=== PATIENT | male | born 1985 | race Hispanic/Latino ===

== ENCOUNTER 2019-03-31 07:21 | Day surgery (SDC) | payer OTHER ==
[2019-03-31] MEDS ORDERED: Ringers Lactate 1,000 ML IV ONE (07:55)
[2019-03-31] MEDS ORDERED: MIDAZOLAM HCL 2 MG/2 ML INJ ONE (08:16)
[2019-03-31] MEDS ORDERED: PROPOFOL 200 MG/20 ML VIAL IV ONE ×2 (08:16→09:16)
[2019-03-31] MEDS ORDERED: FENTANYL CITR 100 MCG/2 ML ONE (08:17)
[2019-03-31] MEDS ORDERED: LIDOCAINE 2% MPF 5 ML VIAL ONE (08:18)
[2019-03-31] MEDS ORDERED: ONDANSETRON 4 MG/2 ML VIAL ONE (08:21)
[2019-03-31] MEDS: CEFAZOLIN/SWI 2gm 2 GM/20 ML SYR ONE ×2 (08:34→08:40)
[2019-03-31] MEDS: BUPIVACA 0.5%/EPI 0.0005%/PF 30 ML VIAL ONE ×2 (08:43→09:07)
[2019-03-31] MEDS ORDERED: KETOROLAC 30 MG/ML INJ ONE (09:10)
[2019-03-31] MEDS ORDERED: GLYCOPYRROLATE 0.2 MG/ML SYR ONE (09:14)
[2019-03-31] MEDS ORDERED: NEOSTIGMINE 1 MG/ML -10 ML VIAL ONE (09:16)
--- NOTE | 2019-03-31 09:55 | P.OP ---
Preoperative diagnosis: Posterior Neck Recurrent Hydrainitis Suppuritiva, Right Facial Abscess Postoperative diagnosis: Posterior Neck Recurrent Hydrainitis Suppuritiva, Right Facial Abscess Primary procedure: Wide Local Excision 15cm x 8cm x 2cm to muscle of Posterior Neck Secondary procedure: Incision and Drainage of Facial Abscess 4cmx 4cm x 1cm Anesthesia: GETA + Local Estimated blood loss: 40cc Specimen: Cultures, Tissues Findings: Large Fungating Hydrainitis, Facial Abscess, pilonidal cyst disease of neck Complications: None Transferred to: Recovery Room Condition: Good
[2019-03-31] MEDS ORDERED: SUCCINYLCHOLINE 20 MG/ML (10 ML) IV ONE (10:22)
[2019-03-31] MEDS ORDERED: PROMETHAZINE 25 MG/ML VIAL ONE (10:25)
[2019-03-31] MEDS ORDERED: HYDROCODONE/APAP 7.5/325 MG TAB ONE (11:00)
[2019-03-31 13:09] VITALS: TEMP 97.8
[2019-03-31 13:10] VITALS: BP 132/74; O2SAT 96
--- NOTE | 2019-03-31 20:20 | OP ---
Date of Procedure: 03/31/2019 Surgeon: Lawrence Contreras MD, Preoperative Diagnosis: Posterior neck recurrent hidradenitis suppurativa and right facial abscess. Postoperative Diagnosis: Posterior neck recurrent hidradenitis suppurativa and right facial abscess. Procedure Performed: 1.Wide local excision 50 cm x 8 cm x 2 cm muscle posterior neck. 2.Incision and drainage of facial abscess, 4 cm x 4 cm x 1 cm. Anesthesia: General endotracheal plus local with 0.5% Marcaine with epinephrine. Estimated Blood Loss: 40 mL. Specimen: Cultures sent for both aerobic and anaerobic speciation. Abscess and tissues sent from hi dradenitis tissue. Findings: 1.Large fungating hidradenitis, recurrent. Significant scarring evident with multiple rest of hidra denitis suppurativa interspersed with pilonidal cyst disease in multiple rest, approximately 8 rest o f pilonidal cyst. These were interspersed between the hidradenitis suppurativa. 2.Facial abscess along the superior aspect of the angle of mandible, not involving deeper tissues in cluding parotid mass. 3.Pilonidal cyst disease. Complications: None. Disposition: Transferred to recovery room in good condition. Procedure In Detail: After informed consent was obtained, patient was brought to the operating room, prepped and draped in the usual sterile fashion. After adequate anesthesia was achieved, an ellipti chloe area of the posterior neck approximately 15 x 8 cm was taken down using a 15 blade circumferentia lly after anesthetizing the entire area. Electrocautery was used to dissect down through the subcuta neous tissues into the subcutaneous fat extended around the right side of the neck as well from poste rior to the right side of the neck. Dissection continued down to expose the fascial planes covering the muscular tissue, but no fascial planes were violated at this time. Dissection continues circumfe rentially to remove this grossly infected and grossly scarred in hidradenitis suppurativa with inters persed rest of pilonidal cyst disease. In between, there were approximately 8 rest of pilonidal cyst disease encountered. These were removed as well along with the pilus. After this area was cleaned, an incision and drainage were performed approximately 4 cm x 4 cm abscess along the superior aspect of the mandible. This is a simple incision and drainage and I removed the capsule of this. It did n ot appear to go deeper than any of the subcutaneous tissues. It did not appear to violate the paroti d or mass tissues. This area was copiously irrigated multiple times until completely clear and packe d, and an interrupted 3-0 nylon sutures were used to reapproximate the skin of this area. I then use d a pulse lavage device to clean out the posterior neck incision after all the tissue was sent off fo r pathologic examination. After this was completely cleared, hemostasis was achieved with electrocau isha and these tissue was reapproximated using a 2-0 nylon suture with a vertical mattress type incis ion and draining israel were placed interspersed between these and a Xeroform gauze placed over the to p. A sterile dressing was placed over top. Patient tolerated the procedure well without evidence of complication and transferred to PACU in good condition. All counts were correct at the end of the case. RADHA/HEIDI Voice ID: [id number] Report ID: [id number]
== END 2019-03-31 12:20 | disposition home or self-care (01) ==
LOC: OR 07:21
PROVIDERS: ATTEND Surgery
PROC: 0J910ZZ Drainage of Face Subcutaneous Tissue and Fascia, Open Approach (ICD-10-PCS; 2019-03-31)
PROC: 0JB40ZZ Excision of Right Neck Subcutaneous Tissue and Fascia, Open Approach (ICD-10-PCS; principal; 2019-03-31 08:30)
DX: L73.2 Hidradenitis suppurativa (principal); L02.01 Cutaneous abscess of face; E66.01 Morbid (severe) obesity due to excess calories; Z68.45 Body mass index [BMI] 70 or greater, adult
CPT/HCPCS: 87070; 87205; 88304; 87075; 87077; 87186; 11426; 10060; J2704 ×2; J2710; J2550; J0330; J3010; J0690; J7120; J2405; 88305; J2250

== ENCOUNTER 2019-04-25 12:03 | Day surgery (SDC) | payer OTHER ==
--- OUTSIDE RECORDS SUMMARY | 2019-04-25 12:07 | XMS REPORT ---
:1985 [facility] Address [address] [place] [address] Dr. Solo [address] [place] [address] Care Team Providers Name Role Phone Unavailable Unavailable Unavailable Problems This patient has no known problems. Allergies, Adverse Reactions, Alerts This patient has no known allergies or adverse reactions. Medications This patient has no known medications.
--- OUTSIDE RECORDS SUMMARY | 2019-04-25 12:07 | XMS REPORT ---
:1985 Author Organization [employer] Care Team Providers Name Role Phone Josey Rose Provider Role Unavailable Allergies, Adverse Reactions, Alerts Substance Reaction Event Type Cipro rash Drug Allergy Problems Problem Type Condition Code Onset Dates Condition Status Assessment Elevated BP without diagnosis of R03.0 Active hypertension Assessment Abscess, neck L02.11 Active Assessment Hidradenitis suppurativa L73.2 Active Assessment Morbid obesity E66.01 Active Assessment Depression screening Z13.31 Active Problem Morbid obesity E66.01 Active Problem Hidradenitis suppurativa L73.2 Active Problem Anxiety F41.9 Active Problem Depression screening Z13.31 Active Problem Abscess, neck L02.11 Active Problem Elevated BP without diagnosis of R03.0 Active hypertension Medications No Known Medications Results No Known Results Summary Purpose eClinicalWorks Submission
[2019-04-25 12:43] VITALS: BP 142/59; TEMP 98.4; O2SAT 96
== END 2019-04-25 12:54 | disposition home or self-care (01) ==
LOC: OR 12:03
PROVIDERS: ATTEND Surgery
DX: L02.211 Cutaneous abscess of abdominal wall (principal); Z53.8 Procedure and treatment not carried out for other reasons

== ENCOUNTER 2019-05-05 11:05 | Day surgery (SDC) | payer OTHER ==
[2019-05-05] MEDS ORDERED: Ringers Lactate 1,000 ML IV ONE (11:42)
[2019-05-05] MEDS ORDERED: CEFAZOLIN/SWI 2gm 2 GM/20 ML SYR ONE (11:42)
--- OUTSIDE RECORDS SUMMARY | 2019-05-05 11:53 | XMS REPORT ---
:1985 [facility] Address [address] [place] [address] Dr. Solo [address] [place] [address] Care Team Providers Name Role Phone Unavailable Unavailable Unavailable Problems This patient has no known problems. Allergies, Adverse Reactions, Alerts This patient has no known allergies or adverse reactions. Medications This patient has no known medications.
[2019-05-05] MEDS ORDERED: BUPIVACA 0.5%/EPI 0.0005%/PF 30 ML VIAL ONE (13:16)
[2019-05-05] MEDS ORDERED: LIDOCAINE 2% MPF 5 ML VIAL ONE (13:32)
[2019-05-05] MEDS ORDERED: PROPOFOL 200 MG/20 ML VIAL IV ONE ×2 (13:32→13:57)
[2019-05-05] MEDS ORDERED: MIDAZOLAM HCL 2 MG/2 ML INJ ONE (13:32)
[2019-05-05] MEDS ORDERED: FENTANYL CITR 100 MCG/2 ML ONE (13:32)
[2019-05-05] MEDS ORDERED: ONDANSETRON 4 MG/2 ML VIAL ONE (13:33)
--- NOTE | 2019-05-05 14:07 | P.OP ---
Preoperative diagnosis: Right flank hydrainitis suppuritiva with abscess x 2 Primary procedure: Debridement of Right flank hydrainitis suppuritiva with abscess x 2 Anesthesia: MAC + Local Estimated blood loss: <10cc Specimen: hydrainitis tissue x 2 Findings: 2 areas of hydrainitis, [id number], and 9klj8pm Complications: None Transferred to: Recovery Room Condition: Good
[2019-05-05 14:34] VITALS: TEMP 98.1
[2019-05-05 15:32] VITALS: BP 115/57; O2SAT 98
--- NOTE | 2019-05-05 23:27 | OP ---
Date of Procedure: 05/05/2019 Surgeon: Lawrence Contreras MD, Preoperative Diagnosis: Right flank hidradenitis suppurativa with abscess x2. Postoperative Diagnosis: Right flank hidradenitis suppurativa with abscess x2. Procedure Performed: Debridement of right flank hidradenitis suppurativa with abscess x2. Anesthesia: MAC plus local 0.5% Marcaine with epinephrine. Estimated Blood Loss: Less than 10 mL. Specimen: Hidradenitis tissue x2. Findings: Two areas of hidradenitis 6 cm x 3 cm x 2 cm deep and 5 cm x 2 cm x 2 cm deep. Complications: None. Disposition: Transferred to recovery room in good condition. Procedure In Detail: After informed consent was obtained, the patient was brought to the operating r oom, prepped and draped in the usual sterile fashion. After adequate anesthesia was achieved, I took an elliptical area of a right flank hidradenitis suppurativa tissue. Cultures were sent at this dioni e of this purulent collection and I took out all the hidradenitis tissue as described above using tucker ctrocautery circumferentially. The area was then copiously irrigated multiple times until completely clear. Electrocautery was used to achieve hemostasis and the wound was then closed with interrupted 0 Prolene sutures in a vertical mattress type orientation. Another anterior flank area of hidradeni tis suppurativa with abscess was also encountered approximately 2-3 cm anterior from the previous one . This was approximately 5 cm x 2 cm. This was taken down using a scalpel down to the subcutaneous tissues. All hidradenitis tissue was also debrided grossly using a curette as well as electrocautery and circumferentially dissected out and sent off for pathologic examination as well. The area was c opiously irrigated. Hemostasis was easily achieved with electrocautery. The area was copiously irri gated 1 last time and dried. It was also closed with interrupted 0 Prolene sutures in interrupted fa shion and a vertical mattress type incision. The patient tolerated the procedure well without eviden ce of complication, transferred to PACU in good condition. All counts were correct at the end of the case. RADHA/HEIDI Voice ID: [id number] Report ID: [id number]
== END 2019-05-05 15:16 | disposition home or self-care (01) ==
LOC: OR 11:05
PROVIDERS: ATTEND Surgery
PROC: 0JB80ZZ Excision of Abdomen Subcutaneous Tissue and Fascia, Open Approach (ICD-10-PCS; principal; 2019-05-05 12:30)
DX: L73.2 Hidradenitis suppurativa (principal); L02.211 Cutaneous abscess of abdominal wall; E66.01 Morbid (severe) obesity due to excess calories; Z68.45 Body mass index [BMI] 70 or greater, adult; F17.200 Nicotine dependence, unspecified, uncomplicated; Z88.3 Allergy status to other anti-infective agents
CPT/HCPCS: 87070; 87205; 88304; 87075; 11470; J2704 ×2; J2250; J3010; J0690; J7120; J2405; 88305

== ENCOUNTER 2019-05-28 07:32 | Day surgery (SDC) | payer OTHER ==
[~2019-05-28 07:32] MED LIST: FENTANYL CITR 100 MCG/2 ML ONE; LIDOCAINE 2% MPF 5 ML VIAL ONE; MIDAZOLAM HCL 2 MG/2 ML INJ ONE; propofoL 200 MG/20 ML VIAL IV ONE
--- OUTSIDE RECORDS SUMMARY | 2019-05-28 07:34 | XMS REPORT ---
:1985 [facility] Address [address] [place] [address] Dr. Solo [address] [place] [address] Care Team Providers Name Role Phone Unavailable Unavailable Unavailable Problems This patient has no known problems. Allergies, Adverse Reactions, Alerts This patient has no known allergies or adverse reactions. Medications This patient has no known medications.
--- OUTSIDE RECORDS SUMMARY | 2019-05-28 07:34 | XMS REPORT ---
:1985 Author Organization [employer] Care Team Providers Name Role Phone Josey Rose Provider Role Unavailable Allergies, Adverse Reactions, Alerts Substance Reaction Event Type Cipro rash Drug Allergy Problems Problem Type Condition Code Onset Dates Condition Status Assessment Abscess, neck L02.11 Active Assessment Abscess of chest J86.9 Active Assessment Morbid obesity E66.01 Active Assessment Elevated BP without diagnosis of R03.0 Active hypertension Assessment Hidradenitis suppurativa L73.2 Active Problem Anxiety F41.9 Active Problem Morbid obesity E66.01 Active Problem Abscess of chest J86.9 Active Problem Elevated BP without diagnosis of R03.0 Active hypertension Problem Depression screening Z13.31 Active Problem Hidradenitis suppurativa L73.2 Active Problem Abscess, neck L02.11 Active Medications Medication Code Code Instructions Start End Status Dosage System Date Date Acetaminophen-Cod [facility] 28257357841 300-30 MG Oral Active (Jaquelin maloney #3 e III Drug) Metformin HCl [facility] [address]-97 500 MG Orally Active 1 tablet Twice daily with a meal Topiramate [facility] [address]-63 25 mg Orally Active 1 tablet Twice daily Spironolactone [facility] [address]-98 25 mg Oral Active 1 tablet Twice a day Results No Known Results Summary Purpose eClinicalWorks Submission
[2019-05-28] MEDS ORDERED: BUPIVACA 0.5%/EPI 0.0005%/PF 30 ML VIAL ONE (08:00)
[2019-05-28] MEDS ORDERED: CEFAZOLIN/SWI 2gm 2 GM/20 ML SYR ONE (08:09)
[2019-05-28] MEDS ORDERED: NA CHLORIDE 0.9% 1,000 ML ONE (08:09)
[2019-05-28] MEDS ORDERED: SUCCINYLCHOLINE 20 MG/ML (10 ML) IV ONE (08:44)
[2019-05-28] MEDS ORDERED: propofoL 200 MG/20 ML VIAL IV ONE (09:02)
[2019-05-28] MEDS ORDERED: KETAMINE HCL 500 MG/5 ML VIAL ONE (09:06)
--- NOTE | 2019-05-28 09:30 | P.OP ---
Preoperative diagnosis: Chest / Sternal Abscess Postoperative diagnosis: Chest / Sternal Abscess Primary procedure: Excisional Debridement of Chest / Sternal Abscess Secondary procedure: Placement of Amniofill (placental graft) Anesthesia: MAC + Local Estimated blood loss: <2cc Specimen: Cultures, debridement tissue Findings: multiloculated abcess to subQ fat, necrotic tissue Complications: None Implants: Amniofill Transferred to: Recovery Room Condition: Good
[2019-05-28 11:30] VITALS: TEMP 97.5; O2SAT 99
[2019-05-28 11:33] VITALS: BP 118/78
--- NOTE | 2019-05-28 20:50 | OP ---
Date of Procedure: 05/28/2019 Surgeon: Lawrence Contreras MD, Preoperative Diagnosis: Chest/sternal abscess. Postoperative Diagnosis: Chest/sternal abscess. Procedure Performed: Excisional debridement of chest/sternal abscess and hidradenitis tissue. Secondary Procedure,: Placement of AmnioFill placental graft. Anesthesia: MAC plus local with 0.5% Marcaine with epinephrine. Estimated Blood Loss: Less than 2 mL. Specimen: Cultures and debridement tissues. Findings: Multiple loculated abscesses, subcu fat, and necrotic tissue, approximately 4 cm x 3 cm size. Complications: None. Implants: AmnioFill. Condition: Transferred to recovery room in good condition. Procedure In Detail: After informed was obtained, the patient was brought to the operating room, prepped and draped in the usual sterile fashion. After adequate anesthesia was achieved in the area of the central sternum, the sternum was noted to have a large abscess. This was opened sharply with a 10 blade down through subcutaneous tissues. Immediately encountered was abscess material. This was cultured at this time for both aerobic and anaerobic speciation. Dissection continued down and it was digitized to find a multiloculated abscess. The edges were debrided of all necrotic tissue and this was sent off for examination of the debridement specimen down to subcutaneous fat. The area was copiously irrigated multiple times until completely clear. The area was curetted once again at this point, and I used an electrocautery device to achieve hemostasis easily. The area was irrigated once again and packed with AmnioFill after appropriately hydrating product, the wound was then packed with damp-to-dry dressings. A sterile dressing was placed over top. The patient tolerated the procedure well without evidence of complication, transferred to PACU in good condition. All counts were correct at the end of the case. RADHA/HEIDI Voice ID: [id number] Report ID: [id number] SHIRLEY
== END 2019-05-28 11:20 | disposition home or self-care (01) ==
LOC: OR 07:32
PROVIDERS: ATTEND Surgery
PROC: 0HR5XK3 Replacement of Chest Skin with Nonautologous Tissue Substitute, Full Thickness, External Approach (ICD-10-PCS; 2019-05-28)
PROC: 0JB60ZZ Excision of Chest Subcutaneous Tissue and Fascia, Open Approach (ICD-10-PCS; principal; 2019-05-28 08:30)
DX: L02.213 Cutaneous abscess of chest wall (principal); L73.2 Hidradenitis suppurativa; G47.33 Obstructive sleep apnea (adult) (pediatric); I10 Essential (primary) hypertension; Z72.0 Tobacco use
CPT/HCPCS: 87070; 87205; 82947 ×2; 88304; 87075; 11042; 15271; J2704 ×2; J2250; J3010; J0690; J7030; J0330

== ENCOUNTER 2019-07-02 07:39 | Day surgery (SDC) | payer OTHER ==
--- OUTSIDE RECORDS SUMMARY | 2019-07-02 07:44 | XMS REPORT ---
[...] End Status Dosage System Date Date Acetaminophen-Cod [facility] 98476962026 300-30 MG Oral Active (Jaquelin maloney #3 e III Drug) Metformin HCl [facility] [address]-50 500 MG Orally Active 1 tablet Twice daily with a meal Topiramate [facility] [address]-03 25 mg Orally Active 1 tablet Twice daily Spironolactone [facility] [address]-76 25 mg Oral Active 1 tablet Twice a day Results No Known Results Summary Purpose eClinicalWorks Submission
--- OUTSIDE RECORDS SUMMARY | 2019-07-02 07:44 | XMS REPORT ---
:1985 [facility] Address [address] [place] [address] Dr. Solo [address] [place] [address] Care Team Providers Name Role Phone Unavailable Unavailable Unavailable Problems This patient has no known problems. Allergies, Adverse Reactions, Alerts This patient has no known allergies or adverse reactions. Medications This patient has no known medications.
[2019-07-02] MEDS ORDERED: CEFAZOLIN/SWI 2gm 2 GM/20 ML SYR ONE (07:59)
[2019-07-02] MEDS ORDERED: FENTANYL CITR 100 MCG/2 ML ONE ×2 (08:08→09:08)
[2019-07-02] MEDS ORDERED: MIDAZOLAM HCL 2 MG/2 ML INJ ONE (08:08)
[2019-07-02] MEDS ORDERED: propofoL 200 MG/20 ML VIAL IV ONE ×2 (08:08→08:29)
[2019-07-02] MEDS ORDERED: LIDOCAINE 2% MPF 5 ML VIAL ONE (08:08)
[2019-07-02] MEDS: NA CHLORIDE 0.9% 1,000 ML ONE (08:15)
[2019-07-02] MEDS ORDERED: BUPIVACA 0.5%/EPI 0.0005%/PF 10 ML VIAL ONE (08:44)
[2019-07-02] MEDS ORDERED: NS 0.9% VIAL 10 ML ONE (09:01)
--- NOTE | 2019-07-02 09:11 | P.OP ---
Preoperative diagnosis: Chest Hydrainitis Suppuritiva Postoperative diagnosis: Chest Hydrainitis Suppuritiva Primary procedure: Wide Local Excision of Chest Hydrainitis Suppuritiva Anesthesia: MAC + Local Estimated blood loss: <10cc Specimen: Cultures Sent, Debridement Tissue Findings: ~6x4x4 cm Complications: None Implants: Amniofill powder Transferred to: Recovery Room Condition: Good
[2019-07-02] MEDS ORDERED: ONDANSETRON 4 MG/2 ML VIAL ONE (09:24)
[2019-07-02] MEDS: HYDROMORPHONE HCL 1 MG/ML INJ ONE ×4 (09:30→09:50)
[2019-07-02] MEDS ORDERED: KETOROLAC 30 MG/ML INJ ONE (09:41)
[2019-07-02 10:40] VITALS: BP 127/70; TEMP 98.9; O2SAT 95
--- NOTE | 2019-07-02 19:22 | OP ---
Date of Procedure: 07/02/2019 Surgeon: Ted Contreras MD, Preoperative Diagnosis: Chest hidradenitis suppurativa. Postoperative Diagnosis: Chest hidradenitis suppurativa with abscess. Procedure: 1.Wide local excision of chest hidradenitis suppurativa. 2.Application of AmnioFill placental graft tissue. Anesthesia: MAC plus local with 0.25% Marcaine with epinephrine. Estimated Blood Loss: Less than 10 mL. Specimen: Cultures sent and debridement tissue. Findings: 6 x 4 x 4 cm area of hidradenitis suppurativa in the central chest portion down to subcuta neous fat. Complications: None. Implants: AmnioFill powder. Disposition: Transferred to recovery room in good condition. Procedure In Detail: After informed consent was obtained. Patient was brought to the operating room, prepped in usual sterile fashion. After adequate anesthesia was achieved, a circumferential area ar ound the central portion of the chest was anesthetized with 0.25% Marcaine, sharply incised with a 10 -blade scalpel down through subcutaneous tissue. Electrocautery used to dissect down to the hidraden itis suppurativa tissue. This was then removed circumferentially. Abscess was encountered. This wa s cultured for both aerobic and anaerobic speciation. After the hidradenitis debridement tissue was completely circumferentially removed down to subcutaneous fat, it was sent off for pathologic examina tion. The area was copiously irrigated multiple times until completely clear. Hemostasis was easily achieved with electrocautery. The area was then packed with AmnioFill powder and a sterile dressing was then prepared. The incision was then closed with interrupted vertical mattress 2-0 nylon suture s with good approximation of tissues and a pressure dressing was placed over the top. Patient tolera the procedure well without any complications, transferred back in good condition. All counts wer e correct at the end of the case. TK/MODL Voice ID: [id number] Report ID: [id number]
== END 2019-07-02 10:41 | disposition home or self-care (01) ==
LOC: OR 07:39
PROVIDERS: ATTEND Surgery
PROC: 0JB60ZZ Excision of Chest Subcutaneous Tissue and Fascia, Open Approach (ICD-10-PCS; principal; 2019-07-02 09:15)
DX: L73.2 Hidradenitis suppurativa (principal); G47.33 Obstructive sleep apnea (adult) (pediatric); E66.01 Morbid (severe) obesity due to excess calories; Z68.45 Body mass index [BMI] 70 or greater, adult; Z87.891 Personal history of nicotine dependence
CPT/HCPCS: 21552; 87070; 87205; 82947 ×2; 88304; 87075; J2704; J2250; J3010 ×2; J1170 ×2; J0690; J7030; J2405

== ENCOUNTER 2019-07-28 09:56 | Day surgery (SDC) | payer OTHER ==
--- OUTSIDE RECORDS SUMMARY | 2019-07-28 10:00 | XMS REPORT ---
[...] End Status Dosage System Date Date Acetaminophen-Cod [facility] 83519021234 300-30 MG Oral Active (Jaquelin maloney #3 e III Drug) Metformin HCl [facility] [address]-00 500 MG Orally Active 1 tablet Twice daily with a meal Topiramate [facility] [address]-70 25 mg Orally Active 1 tablet Twice daily Spironolactone [facility] [address]-49 25 mg Oral Active 1 tablet Twice a day Results No Known Results Summary Purpose eClinicalWorks Submission
--- OUTSIDE RECORDS SUMMARY | 2019-07-28 10:00 | XMS REPORT ---
:1985 [facility] Address [address] [place] [address] Dr. Solo [address] [place] [address] Care Team Providers Name Role Phone Unavailable Unavailable Unavailable Problems This patient has no known problems. Allergies, Adverse Reactions, Alerts This patient has no known allergies or adverse reactions. Medications This patient has no known medications.
[2019-07-28] MEDS ORDERED: NA CHLORIDE 0.9% 1,000 ML ONE (10:20)
[2019-07-28] MEDS ORDERED: NS 0.9% VIAL 10 ML ONE (13:11)
[2019-07-28] MEDS: BUPIVACA 0.5%/EPI 0.0005%/PF 10 ML VIAL ONE ×2 (13:26→13:53)
[2019-07-28] MEDS ORDERED: propofoL 200 MG/20 ML VIAL IV ONE ×2 (13:27→13:30)
[2019-07-28] MEDS ORDERED: FENTANYL CITR 100 MCG/2 ML ONE ×2 (13:28→13:52)
[2019-07-28] MEDS ORDERED: ONDANSETRON 4 MG/2 ML VIAL ONE (13:29)
[2019-07-28] MEDS ORDERED: LIDOCAINE 2% MPF 5 ML VIAL ONE (13:29)
[2019-07-28] MEDS ORDERED: SUCCINYLCHOLINE 20 MG/ML (10 ML) IV ONE (13:31)
--- NOTE | 2019-07-28 14:17 | P.OP ---
Preoperative diagnosis: LEFT Posterior Neck Hidrainitis Suppuritiva Postoperative diagnosis: LEFT Posterior Neck Hidrainitis Suppuritiva Primary procedure: Wide Local Excision / Exisional Debridement of LEFT Posterior Neck Hidraini Secondary procedure: Application of Amniofill placental graft tissue Anesthesia: GETA + Local Estimated blood loss: <20cc Specimen: 11x7cm segment of LEFT Posterior Neck Hidrainitis Suppuritiva Findings: LEFT Posterior Neck Hidrainitis Suppuritiva Complications: None Implants: Amniofill 500g Transferred to: Recovery Room Condition: Good
[2019-07-28] MEDS: MORPHINE 4 MG/ML SYR ONE ×2 (14:33→14:39)
[2019-07-28] MEDS ORDERED: HYDROCODONE/APAP 7.5/325 MG TAB ONE (15:22)
[2019-07-28 15:50] VITALS: BP 141/64; TEMP 97.6; O2SAT 100
--- NOTE | 2019-07-28 21:19 | OP ---
Date of Procedure: 07/28/2019 Surgeon: Lawrence Contreras MD, Postoperative Diagnosis: Left posterior neck hidradenitis suppurativa. Postoperative Diagnosis: Left posterior neck hidradenitis suppurativa. Procedure Performed: 1.Wide local excision/excisional debridement of left posterior hidradenitis suppurative. Secondary procedure: Application of AmnioFill placental graft tissue. Anesthesia: General endotracheal plus local 0.5% Marcaine with epinephrine. Estimated Blood Loss: Less than 20 cc. Specimen: 11 x 7 cm segment of left posterior neck hidradenitis suppurativa. Findings: Left posterior neck abscess hidradenitis suppurativa. Additional Specimen: Culture sent for both aerobic and anaerobic speciation from abscess encountered . Implants: 500 g AmnioFill product application [employer] Transferred to recovery room in good condition. Procedure In Detail: After informed was obtained, patient was brought to the operating room, prepped and draped in the usual sterile fashion. After adequate anesthesia achieved, an 11 x 7 cm segment o f infected hidradenitis suppurative was appreciated on the patient's left posterior neck. This was d emarcated with a 15-blade down to subcutaneous tissue circumferentially. Electrocautery was used to dissect down through subcutaneous tissues. Patient had previous surgery and has multiple scar tissue in this area and multiple abscesses encountered. The abscesses were cultured at this time, sent off for both aerobic and anaerobic speciation. The dissection continued circumferentially down the subc utaneous fat and to the level of the overlying fascia over the muscle, but no muscle involvement was encountered. The tissue was then removed, sent off for pathologic examination. The area was copious ly irrigated multiple times until completely clear. Hemostasis was used to achieve electrocautery. AmnioFill 500 g was then powdered into the wound in a circumferential fashion. A sterile damp to dry dressing was placed over top and secured over top with tape and a sterile dressing. The patient nanda erated the procedure well without evidence of complication and transferred to PACU in good condition. All counts were correct at the end of the case. TK/MODL Voice ID: [id number] Report ID: [id number]
== END 2019-07-28 15:37 | disposition home or self-care (01) ==
LOC: OR 09:56
PROVIDERS: ATTEND Surgery
PROC: 0JB50ZZ Excision of Left Neck Subcutaneous Tissue and Fascia, Open Approach (ICD-10-PCS; principal; 2019-07-28 11:15)
DX: L73.2 Hidradenitis suppurativa (principal); E11.9 Type 2 diabetes mellitus without complications; G47.33 Obstructive sleep apnea (adult) (pediatric); E66.01 Morbid (severe) obesity due to excess calories; Z68.45 Body mass index [BMI] 70 or greater, adult
CPT/HCPCS: 11426; 87070; 87205; 82947 ×2; 88304; 87075; 87077; 87186; J2704; J0330; J3010 ×2; J7030; J2405

== ENCOUNTER 2019-09-01 10:21 | Day surgery (SDC) | payer OTHER ==
[2019-09-01 14:29] VITALS: BP 124/59; TEMP 99.1; O2SAT 100
== END 2019-09-01 14:55 | disposition home or self-care (01) ==
LOC: OR 10:21
PROVIDERS: ATTEND Surgery
PROC: 0JB80ZZ Excision of Abdomen Subcutaneous Tissue and Fascia, Open Approach (ICD-10-PCS; principal; 2019-09-01)
PROC: 0JB60ZZ Excision of Chest Subcutaneous Tissue and Fascia, Open Approach (ICD-10-PCS; 2019-09-01)
DX: L73.2 Hidradenitis suppurativa (principal); E11.9 Type 2 diabetes mellitus without complications; I10 Essential (primary) hypertension; G47.33 Obstructive sleep apnea (adult) (pediatric); E66.01 Morbid (severe) obesity due to excess calories; Z68.45 Body mass index [BMI] 70 or greater, adult; Z99.81 Dependence on supplemental oxygen
CPT/HCPCS: 82947; 88304; 11406 ×2; 11404; J2704 ×2; J0330; J2250; J3010; J0690; J7030; J2405 ×2; 88305

== ENCOUNTER 2019-10-23 22:49 | Emergency (ER) | payer OTHER ==
--- OUTSIDE RECORDS SUMMARY | 2019-10-23 22:52 | XMS REPORT ---
:1985 Author Organization eClinicalWorks Care Team Providers Name Role Phone Josey Rose Provider Role Unavailable Allergies, Adverse Reactions, Alerts Substance Reaction Event Type Cipro rash Drug Allergy Problems Problem Type Condition Code Onset Dates Condition Statu s Assessment Right inguinal pain R10.31 Active Problem Depression screening Z13.31 Active Assessment Elevated BP without diagnosis of R03.0 Active hypertension Problem Abscess of chest J86.9 Active Problem Anxiety F41.9 Active Problem Right inguinal pain R10.31 Active Problem Abscess, neck L02.11 Active Problem Elevated BP without diagnosis of R03.0 Active hypertension Problem Morbid obesity E66.01 Active Problem Hidradenitis suppurativa L73.2 Act mis Medications Medication Code Code Instructions Start End Status Dosage System Date Date Trazodone HCl ND 83580415712 50 MG Orally Active 1 tablet Once a day at bedtime as needed Metformin HCl ND 80740513292 500 MG Orally Active 1 tablet Twice daily with a meal Acetaminophen-Code ND 16571254795 300-30 MG Oral Ac tive (Schedule ine #3 III Drug) Topiramate ND 23115253835 25 mg Orally Active 1 ta blet Twice daily Spironolactone ND 94445924830 25 mg Oral Active 1 tablet Twice a day Cyclobenzaprine ND 15347127947 10 MG Orally SeptemberNovember 05, Active 1 tablet HCl Twice a day 2019 as needed for muscle cramping/ pain Results No Known Results Summary Purpose eClinicalWorks Submission
--- OUTSIDE RECORDS SUMMARY | 2019-10-23 22:52 | XMS REPORT ---
:1985 Author Organization [facility] t Address [address] [place] [address] [address]. Solo [address] [place] [address] Care Team Providers Name Role Phone Unavailable Unavailable Unavailable Problems Condition Condition Condition Status Onset Resolution Last Treating Co mments Source Name Details Category Date Date Treatment Clinician Date Elevated Elevated Problem Active [facility] without BP without Funmilayo kes - diagnosis diagnosis Danis abimbola of of l hypertensi hypertensi Ou tpati on on ent Clinics Abscess, Abscess, Problem Active [facility] Hidradenit Hidradenit Problem Active [facility] is is [facility] suppurativ suppurativ Me moria a [facility] Morbid Morbid Problem Active [facility] obesity obesity [facility] Depression Depression Problem Active [facility] screening screening [facility] Anxiety Anxiety Problem [facility] Abscess of Abscess of Problem Active [facility] chest chest [facility] Right Right Problem Active [facility] inguinal inguinal [facility] Allergies, Adverse Reactions, Alerts Allergy Allergy Status Severity Reaction(s) Onset Inactive Treating Comm ents Source Name Type Date Date Clinician Cipro Adverse Active rash [facility] Reaction [facility] Medications Ordered Filled Start Stop Current Ordering Indication Dosage Frequency Signature Comments Components Source Medication Medication Date Date Medication? Clinician (SIG) Name Name Cyclobenzap Cyclobenzap 2020- Yes Josey [address] [facility] [address] rine HCl rine HCl 10-06- Millender as needed [facility] - 00:00: 00:00 for muscle Memori a 00 :00 cramping/p l ain [facility] Acetaminoph Acetaminoph Yes Josey (Schedule [facility] en-Codeine en-Codeine Millender III Drug) [facility]3 [facility] Trazodone Trazodone Yes Josey [address] [facility] HCl HCl Millender at bedtime Luke [facility] - as needed [facility] Metformin Metformin Yes Josey [address] [facility] [address] HCl HCl Millender with a [facility] - meal [facility] Topiramate Topiramate Yes Josey [address] Millender [facility] ent Clinics Spironolact Spironolact Yes Josey [address] [facility] one one Millender kes [facility] Procedures This patient has no known procedures. Encounters Start End Encounter Admission Attending Care Care Encounter Source Date/Time Date/Time Type Type Clinicians Facility Department ID 2019-10-07 2019-10-07 Outpatient Siva Fallon [id number] [facility] 15[facility]00[facility]00 [facility] 2019-05-26 2019-05-26 Outpatient Siva Fallon [id number] [address] 09:45:00 09:45:00 [facility] 2019-02-24 2019-02-24 Outpatient Siva Fallon [id number] 09:00[facility]00 09:00:00 [facility] Results This patient has no known results.
--- OUTSIDE RECORDS SUMMARY | 2019-10-23 22:52 | XMS REPORT ---
:1985 Author Organization eClinical[employer] Care Team Providers Name Role Phone Josey Rose Provider Role Unavailable Allergies, Adverse Reactions, Alerts Substance Reaction Event Type Cipro rash Drug Allergy Problems Problem Type Condition Code Onset Dates Condition Statu s Assessment Abscess, neck L02.11 Active Assessment Abscess of chest J86.9 Active Assessment Morbid obesity E66.01 Active Assessment Elevated BP without diagnosis of R03.0 Active hypertension Assessment Hidradenitis suppurativa L73.2 Act mis Problem Anxiety F41.9 Active Problem Morbid obesity E66.01 Active Problem Abscess of chest J86.9 Active Problem Elevated BP without diagnosis of R03.0 Active hypertension Problem Depression screening Z13.31 Active Problem Hidradenitis suppurativa L73.2 Act mis Problem Abscess, neck L02.11 Active Medications Medication Code Code Instructions Start End Status Dosage System Date Date Acetaminophen-Cod [facility] 15396286147 300-30 MG Oral Act mis (Jaquelin maloney #3 e III Drug) Metformin HCl [facility] [address]-62 500 MG Orally Active 1 tablet Twice daily with a meal Topiramate [facility] [address]-62 25 mg Orally Active 1 tablet Twice daily Spironolactone [facility] [address]-30 25 mg Oral Active 1 tablet Twice a day Results No Known Results Summary Purpose eClinicalWorks Submission
--- OUTSIDE RECORDS SUMMARY | 2019-10-23 22:52 | XMS REPORT ---
:1985 Author Organization [employer] Care Team Providers Name Role Phone Rose Josey Provider Role Unavailable Allergies, Adverse Reactions, Alerts Substance Reaction Event Type Cipro rash Drug Allergy Problems Problem Type Condition Code Onset Dates Condition Statu s Assessment Elevated BP without diagnosis of R03.0 Active hypertension Assessment Abscess, neck L02.11 Active Assessment Hidradenitis suppurativa L73.2 Act mis Assessment Morbid obesity E66.01 Active Assessment Depression screening Z13.31 Active Problem Morbid obesity E66.01 Active Problem Hidradenitis suppurativa L73.2 Act mis Problem Anxiety F41.9 Active Problem Depression screening Z13.31 Active Problem Abscess, neck L02.11 Active Problem Elevated BP without diagnosis of R03.0 Active hypertension Medications No Known Medications Results No Known Results Summary Purpose eClinicalWorks Submission
--- NOTE | 2019-10-23 23:22 | ER ---
Nurse's Notes [facility] [place] Name: Leland Pryor Age: 34 yrs Sex: Male : 1985 Arrival Date: 10/23/2019 Time: 22:51 Bed 16 Private MD: Diagnosis: Jaw pain-right upper Presentation: 10/22 23:02 Chief complaint: Patient states: Right upper jaw tooth pain on Sunday and today. Old ll1 hydrocodone helped Sunday, not today. No fever. Coronavirus screen: Proceed with normal triage. Patient denies a cough. Patient denies shortness of breath or difficulty breathing. Patient denies measured and/or subjective temperature greater than 100.4F prior to today's visit. Patient denies travel on a cruise ship or to a country the [facility] currently lists as an affected area. Patient denies contact with known and/or suspected case of COVID-19. Ebola Screen: Patient denies travel to an Ebola-affected area in the 21 days before illness onset. Initial Sepsis Screen: Does the patient meet any 2 criteria? HR > 90 bpm. Does the patient have a suspected source of infection? No. Patient's initial sepsis screen is negative. Risk Assessment: Do you want to hurt yourself or someone else? Patient reports no desire to harm self or others. Onset of symptoms was October 18, 2019. 23:02 Method Of Arrival: Ambulatory ll1 23:02 Acuity: JOSY 4 ll1 Historical: - Allergies: 23:05 Cipro; ll1 - PMHx: 23:05 abscess; Diabetes - NIDDM; ll1 - Immunization history:: Adult Immunizations up to date, Flu vaccine is up to date. - Social history:: Smoking status: Patient denies any tobacco usage or history of. Patient/guardian denies using alcohol, street drugs, tobacco products. Screenin:33 Abuse screen: Denies threats or abuse. Nutritional screening: No deficits noted. ll1 Tuberculosis screening: No symptoms or risk factors identified. Fall Risk None identified. Total Culver Fall Scale indicates No Risk (0-24 pts). Assessment: 23:32 General: Appears uncomfortable, Behavior is calm, cooperative, appropriate for age. ll1 Pain: Complains of pain in upper right first bicuspid (#5) Pain currently is 8 out of 10 on a pain scale. Quality of pain is described as aching, Is continuous. Neuro: No deficits noted. Cardiovascular: No deficits noted. Respiratory: No deficits noted. EENT: Reports pain in upper right first bicuspid (#5) Denies nasal congestion, nasal discharge. Vital Signs: 23:02 BP 150 / 82; Pulse 107; Resp 19; Pulse Ox 99% ; Weight 210.92 kg; Height 5 ft. 8 in. ll1 (172.72 cm); Pain 8/10; 23:08 Temp 97.6; ll1 23:02 Body Mass Index 70.70 (210.92 kg, 172.72 cm) ll1 ED Course: 22:51 Patient arrived in ED. cl3 23:03 Ramy Mahajan PA is PHCP. cp 23:03 Peterson Roque MD is Attending Physician. cp 23:04 Triage completed. ll1 23:05 Arm band placed on Patient placed in an exam room, on a stretcher. ll1 23:20 Isael Briones DDS is Referral Physician. cp 23:23 Filiberto Rivas RN is Primary Nurse. ll1 23:33 Patient has correct armband on for positive identification. Bed in low position. Call ll1 light in reach. Side rails up X 1. 23:34 No provider procedures requiring assistance completed. Patient did not have IV access ll1 during this emergency room visit. Administered Medications: 23:21 CANCELLED (PA changed): Tylenol #3 (300 mg-30 mg) 2 tabs PO once; RASS on ADMIN: fc Combtv4, Very Agttd3, Agttd2, Rstlss1, AlertClm0, Drwsy-1, Lt Sdtn-2, Mod Sdtn-3, Dp Sdtn-4, UnArsble-5 23:31 Drug: Clindamycin 300 mg Route: PO; 1 10/23 00:04 Follow up: Response: No adverse reaction [facility] 10/22 23:31 Drug: TORadol 60 mg Route: IM; Site: right gluteus; 1 10/23 00:04 Follow up: Response: No adverse reaction; Pain is unchanged, physician notified 1 Outcome: 10/22 23:48 Patient left the ED. 1 10/23 00:05 Discharged to home ambulatory. ll1 Condition: stable Discharge instructions given to patient, Instructed on discharge instructions, follow up and referral plans. medication usage, Demonstrated understanding of instructions, follow-up care, medications, Prescriptions given X 3. Signatures: Ramy Mahajan PA PA cp Lewis, Charde cl3 Filiberto Rivas RN RN ll1 Kelly Alcaraz RN fc Corrections: (The following items were deleted from the chart) 10/22 23:34 23:21 Discharge ordered by . terra ll1
--- NOTE | 2019-10-23 23:22 | EDPHYS ---
Physician Documentation [facility] Name: Leland Pryor Age: 34 yrs Sex: Male : 1985 Arrival Date: 10/23/2019 Time: 22:51 Bed 16 Private MD: ED Physician Peterson Roque HPI: 10/22 23:14 This 34 yrs old Male presents to ER via Ambulatory with complaints of cp Toothache. 23:14 The patient presents with pain. The problem is located in the right upper jaw. Onset: cp The symptoms/episode began/occurred last week. Duration: The symptoms are intermittent, pain worse today. Associated signs and symptoms: Pertinent negatives: dysphagia, fever, inability to eat. Severity of symptoms: in the emergency department the symptoms are unchanged, despite home interventions. Historical: - Allergies: 23:05 Cipro; ll1 - PMHx: 23:05 abscess; Diabetes - NIDDM; ll1 - Immunization history:: Adult Immunizations up to date, Flu vaccine is up to date. - Social history:: Smoking status: Patient denies any tobacco usage or history of. Patient/guardian denies using alcohol, street drugs, tobacco products. ROS: 23:15 Constitutional: Negative for body aches, chills, fever. cp 23:15 ENT: Positive for dental pain, Teeth pain Negative for drainage from ear(s), ear pain, sore throat, difficulty swallowing, difficulty handling secretions. 23:15 Respiratory: Negative for cough. 23:15 Abdomen/GI: Negative for vomiting, diarrhea, constipation. 23:15 Skin: Negative for rash. 23:15 Neuro: Negative for headache, weakness. 23:15 All other systems are negative. Exam: 23:17 Head/Face: Normocephalic, atraumatic. cp 23:17 Constitutional: The patient appears in no acute distress, alert, awake, non-toxic, well developed, well nourished, morbidly obese 23:17 Eyes: Periorbital structures: appear normal, Conjunctiva: normal, no exudate, no injection, Sclera: no appreciated abnormality, Lids and lashes: appear normal, bilaterally. 23:17 ENT: External ear(s): are unremarkable, Nose: is normal, Mouth: Lips: moist, Oral mucosa: pink and intact, moist, Posterior pharynx: Airway: no evidence of obstruction, patent, Tonsils: are normal in appearance, Dental exam: abscess, is not appreciated, dental caries, that is severe, diffusely, gum swelling, that is mild, specifically in the upper right first bicuspid (#5), missing teeth, diffusely, pain, that is moderate, specifically in the upper right first bicuspid (#5), Voice: is normal. 23:17 Neck: ROM/movement: is normal, is supple, without pain, no range of motions limitations. 23:20 Cardiovascular: Rate: tachycardic. cp 23:20 Respiratory: the patient does not display signs of respiratory distress, Respirations: normal. Vital Signs: 23:02 BP 150 / 82; Pulse 107; Resp 19; Pulse Ox 99% ; Weight 210.92 kg; Height 5 ft. 8 in. ll1 (172.72 cm); Pain 8/10; 23:08 Temp 97.6; ll1 23:02 Body Mass Index 70.70 (210.92 kg, 172.72 cm) ll1 MDM: 23:08 Patient medically screened. cp 23:22 Data reviewed: vital signs, nurses notes, and as a result, I will discharge patient. cp 23:22 ED course: VSS. Patient with narcotic score of 240 and sedative score of 110 after cp review on [place] prescription monitoring program website. Administered Medications: 23:21 CANCELLED (PA changed): Tylenol #3 (300 mg-30 mg) 2 tabs PO once; RASS on ADMIN: fc Combtv4, Very Agttd3, Agttd2, Rstlss1, AlertClm0, Drwsy-1, Lt Sdtn-2, Mod Sdtn-3, Dp Sdtn-4, UnArsble-5 23:31 Drug: Clindamycin 300 mg Route: PO; 1 10/23 00:04 Follow up: Response: No adverse reaction [facility] 10/22 23:31 Drug: TORadol 60 mg Route: IM; Site: right gluteus; 1 10/23 00:04 Follow up: Response: No adverse reaction; Pain is unchanged, physician notified ll1 Disposition: 10/22 23:28 Chart complete. cp 10/23 03:25 Co-signature as Attending Physician, Peterson Roque MD. [email or web address] Disposition: 10/23/19 23:21 Discharged to Home. Impression: Jaw pain - right upper. - Condition is Stable. - Discharge Instructions: Dental Pain, Diet and Dental Disease. - Prescriptions for Ibuprofen 800 mg Oral Tablet - take 1 tablet by ORAL route every 8 hours As needed take with food; 30 tablet. Tylenol- Codeine #3 300-30 mg Oral Tablet - take 2 tablets by ORAL route every 6 hours As needed; 15 tablet. Clindamycin HCl 300 mg Oral Capsule - take 1 capsule by ORAL route every 6 hours for 10 days; 40 capsule. - Medication Reconciliation Form, Thank You Letter, Antibiotic Education, Prescription Opioid Use form. - Follow up: Isael Briones DDS; When: 2 - 3 days; Reason: Recheck today's complaints. - Problem is new. - Symptoms have improved. Signatures: Kelly Alcaraz RN RN fc Ramy Mahajan PA PA cp Lewis, Lynsay, RN RN ll1 Peterson Roque MD MD [email or web address] Corrections: (The following items were deleted from the chart) 10/22 23:21 23:13 Tylenol #3 (300 mg-30 mg) 2 tabs PO once; RASS on ADMIN: Combtv4, Very Agttd3, fc Agttd2, Rstlss1, AlertClm0, Drwsy-1, Lt Sdtn-2, Mod Sdtn-3, Dp Sdtn-4, UnArsble-5 ordered. cp 23:48 23:21 10/23/2019 23:21 Discharged to Home. Impression: Jaw pain - right upper. ll1 Condition is Stable. Forms are Medication Reconciliation Form, Thank You Letter, Antibiotic Education, Prescription Opioid Use. Follow up: Isael Briones; When: 2 - 3 days; Reason: Recheck today's complaints. Problem is new. Symptoms have improved. cp
[2019-10-23] MEDS ORDERED: KETOROLAC 30 MG/ML INJ ONE (23:31)
[2019-10-24 01:52] VITALS: TEMP 97.6
[2019-10-24 01:53] VITALS: BP 150/82; O2SAT 99
== END 2019-10-23 23:48 | disposition home or self-care (01) ==
LOC: ER 22:49
DX: R68.84 Jaw pain (principal); Z88.1 Allergy status to other antibiotic agents
CPT/HCPCS: 96372; 99283

== ENCOUNTER 2020-02-11 07:15 | Day surgery (SDC) | payer OTHER ==
[2020-02-04 10:09] LABS: Absolute Lymphocytes (CBC) 1.9 K/uL (0.7-4.9); Basophils % 0.8 % (0-1.3); Hematocrit 38.6 % (39.6-49.0); Lymphocytes % 19.9 % (15.3-44.8); MPV 8.9 fL (7.6-11.3)
[2020-02-04 10:22] LABS: BUN Blood Urea Nitrogen 15 mg/dL (7-18); Bicarbonate 23 mmol/L (21-32); Glucose Level 107 mg/dL (74-106); Potassium 4.1 mmol/L (3.5-5.1); Sodium Level 140 mmol/L (136-145)
--- OUTSIDE RECORDS SUMMARY | 2020-02-11 07:27 | XMS REPORT ---
:1985 Author Organization eClinicalWorks Care Team Providers Name Role Phone Josey Rose Provider Role Unavailable Allergies, Adverse Reactions, Alerts Substance Reaction Event Type Ciprofloxacin Rash Drug Allergy Problems Problem Type Condition Code Onset Dates Condition Statu s Assessment Status post fall Z91.81 Active Assessment Right inguinal pain R10.31 Active Assessment Pain in right arm M79.601 Active Assessment Pain in left arm M79.602 Active Assessment Pain in right knee M25.561 Active Assessment Pain in left knee M25.562 Active Assessment CPAP (continuous positive airway Z99.89 Active pressure) dependence Problem Depression screening Z13.31 Active Assessment GABE (obstructive sleep apnea) G47.33 Active Problem Abscess of chest J86.9 Active Assessment BMI 70 and over, adult Z68.45 Activ e Problem Right inguinal pain R10.31 Active Problem Status post fall Z91.81 Active Problem Tooth pain K08.89 Active Problem Pain in right knee M25.561 Active Problem Pain in left knee M25.562 Active Assessment Elevated BP without diagnosis of R03.0 Active hypertension Assessment Encounter for general adult medical Z00.00 Active examination without abnormal findings Problem GABE (obstructive sleep apnea) G47.33 Active Assessment Morbid obesity E66.01 Active Problem CPAP (continuous positive airway Z99.89 Active pressure) dependence Problem BMI 70 and over, adult Z68.45 Activ e Problem Pain in right arm M79.601 Active Problem Pain in left arm M79.602 Active Problem Abscess, neck L02.11 Active Assessment Tooth pain K08.89 Active Assessment Hidradenitis suppurativa L73.2 Act mis Problem Anxiety F41.9 Active Problem Elevated BP without diagnosis of R03.0 Active hypertension Problem Hidradenitis suppurativa L73.2 Act mis Problem Morbid obesity E66.01 Active Medications Medication Code Code Instructions Start End Status Dosage System Date Date Metformin HCl [facility] 22988919271 500 MG Orally Active 1 tablet Twice daily with a meal Spironolactone [facility] 13324330272 25 mg Oral Active 1 tablet Twice a day Trazodone HCl [facility] 89266494246 50 MG Orally Active 1 tablet Once a day at bedtime as needed Topiramate [facility] 75868778737 25 mg Orally Active 1 ta blet Twice daily Acetaminophen-Cod [facility] 97139784285 300-30 MG Oral Act mis (Schedule eine #3 III Drug) Results No Known Results Summary Purpose eClinicalWorks Submission
--- OUTSIDE RECORDS SUMMARY | 2020-02-11 07:27 | XMS REPORT | Continuity of Care Document ---
:1985 Author Organization [facility] t Address [address] [place] [address] [address]. [address] [place] [address] Care Team Providers Name Role Phone Domenico Attending Clinician Unavailable Domenico Attending Clinician Unavailable Domenico Admitting Clinician Unavailable Problems Condition Condition Condition Status Onset Resolution Last Treating Co mments Source Name Details Category Date Date Treatment Clinician Date Elevated Elevated Problem Active [facility] without BP without Funmilayo kes - diagnosis diagnosis Danis abimbola of of l hypertensi hypertensi Ou tpati on on ent Clinics Abscess, Abscess, Problem Active [facility] Hidradenit Hidradenit Problem Active [facility] is is [facility] suppurativ suppurativ Me moria [facility] Morbid Morbid Problem Active [facility] obesity obesity [facility] Depression Depression Problem Active [facility] screening screening [facility] Anxiety Anxiety Problem [facility] Abscess of Abscess of Problem Active [facility] chest chest [facility] Right Right Problem Active [facility] inguinal inguinal [facility] Status Status Problem Active [facility] post fall post fall [facility] Pain in Pain in Problem Active [facility] right arm right arm [facility] Pain in Pain in Problem Active [facility] left arm left arm [facility] Pain in Pain in Problem Active [facility] right knee right knee Funmilayo kes - [facility] Pain in Pain in Problem Active [facility] left knee left knee [facility] CPAP CPAP Problem Active [facility] (continuou (continuou Funmilayo kes - s positive s positive Me moria airway airway l pressure) pressure) 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 GABE GABE Problem Active [facility] (obstructi (obstructi Funmilayo kes - ve sleep ve sleep Memori a apnea) apnea) [facility] ent [facility] BMI 70 and BMI 70 and Problem Active [facility] over, over, [facility] - adult adult [facility] Tooth pain Tooth pain Diagnosis Active [facility] Encounter Encounter Diagnosis Active [facility] for for [facility] - general general [facility] adult adult l medical medical [facility] examinatio examinatio en t n without n without Clin ics abnormal abnormal findings findings Allergies, Adverse Reactions, Alerts Allergy Allergy Status Severity Reaction(s) Onset Inactive Treating Comm ents Source Name Type Date Date Clinician Ciproflo Adverse Active Rash [facility] xacin Reaction [facility][note 2] Medications Ordered Filled Start Stop Current Ordering Indication Dosage Frequency Signature Comments Components Source Medication Medication Date Date Medication? Clinician (SIG) Name Name Metformin Metformin Yes Josey [address] [facility] HCl HCl Millender with a [facility] - meal [facility] Spironolact Spironolact Yes Josey [address] [facility] one one Millender [facility] [place][note 2] Trazodone Trazodone Yes Josey [address] HCl HCl Millender at bedtime Luke s - as needed [facility] Topiramate Topiramate Yes Josey [address] Millender [facility] [place][note 2] Acetaminoph Acetaminoph Yes Josey (Schedule [facility] en-Codeine en-Codeine Millender III Drug) [facility] - #3 #3 [facility] Procedures This patient has no known procedures. Encounters Start End Encounter Admission Attending Care Care Encounter Source Date/Time Date/Time Type Type Clinicians Facility Department ID 2020-01-23 Inpatient 3 Christy Acuña [facility] [id number] [facility] 14:39:04 Christy Acuña [facility] 2019-12-02 2019-12-02 Outpatient Siva Fallon [id number] [address] 08[facility] 08:00:00 [facility] s - Road [facility] 2019-10-11 2019-10-11 Outpatient Siva Fallon [id number] 22:02:00 22:02:00 [facility] 2019-10-07 2019-10-07 Outpatient Siva Paniaguat [id number] 15:00:00 15:00:00 [facility] 2019-05-26 2019-05-26 Outpatient Siva Fallon [id number] 09:45:00 09:45:00 [facility] 2019-02-24 2019-02-24 Outpatient Siva Paniaguat [id number] 09:00[facility]00 09:00:00 [facility] Results This patient has no known results.
[2020-02-11] MEDS ORDERED: BUPIVACA 0.25%/EPI 0.0005%/PF 30 ML VIAL ONE (07:36)
[2020-02-11] MEDS ORDERED: dexAMETHasone 10 MG/ML VIAL ONE (07:56)
[2020-02-11] MEDS ORDERED: propofoL 200 MG/20 ML VIAL IV ONE ×2 (07:56→08:43)
[2020-02-11] MEDS ORDERED: FENTANYL CITR 100 MCG/2 ML ONE ×3 (07:56→09:49)
[2020-02-11] MEDS ORDERED: MIDAZOLAM HCL 2 MG/2 ML INJ ONE ×2 (07:56→08:43)
[2020-02-11] MEDS ORDERED: LIDOCAINE 2% MPF 5 ML VIAL ONE ×2 (07:57→08:43)
[2020-02-11] MEDS ORDERED: ROCURONIUM 50 MG/5 ML VIAL IV ONE (07:57)
[2020-02-11] MEDS: NA CHLORIDE 0.9% 1,000 ML ONE ×2 (07:59→08:03)
[2020-02-11] MEDS: CEFAZOLIN/SWI 2gm 2 GM/20 ML SYR ONE ×2 (07:59→09:01)
[2020-02-11] MEDS ORDERED: ONDANSETRON 4 MG/2 ML VIAL ONE (08:44)
[2020-02-11] MEDS ORDERED: KETOROLAC 30 MG/ML INJ ONE (09:19)
--- NOTE | 2020-02-11 09:55 | P.OP ---
Residential Living Assistant: NONE,NONE Preoperative diagnosis: hidrainitis suppuritiva of superior cleft Postoperative diagnosis: hidrainitis suppuritiva of superior cleft Primary procedure: Excisional Debridement of hidrainitis suppuritiva of superior michelle cleft Anesthesia: GETA Estimated blood loss: <20cc Specimen: cultures and debridement tissues Findings: scarred tissue, abscesses x 2 multiloculated Complications: None Transferred to: Recovery Room Condition: Good
[2020-02-11 11:50] VITALS: BP 129/50; TEMP 97.8; O2SAT 100
[2020-02-11] MEDS ORDERED: CODEINE 30MG/APAP 300MG TAB ONE (11:58)
--- NOTE | 2020-02-11 20:07 | OP ---
Date of Procedure: 02/11/2020 Surgeon: Ted Contreras MD, Preoperative Diagnosis: Hidradenitis suppurativa of the superior cleft x2 areas. Postoperative Diagnosis: Hidradenitis suppurativa of the superior michelle cleft x2 areas. Procedure Performed: An excisional debridement of hidradenitis suppurativa of superior cleft a nd adjacent right upper buttock area. Anesthesia: General endotracheal. Estimated Fluid Loss: Less than 20 mL. Specimen: Cultures sent for aerobic and anaerobic speciation and debridement tissue. Findings: Scar tissue abscesses x2, which were multiloculated. Complications: None. Disposition: Transferred to recovery room in good condition. Procedure In Detail: After informed consent was obtained, the patient was brought to the operating r oom, prepped and draped in the usual sterile fashion. After adequate anesthesia was achieved, in the area of the superior michelle cleft an elliptical incision was made around the area of hidradenitis sup purativa with obvious abscess drainage. After getting through subcutaneous tissues, a multiloculated abscess was encountered. This was cultured at this point for aerobic and anaerobic speciation and t he area was completely debrided for approximately 4 cm x 2 cm x 3 cm with achieving hemostasis with e lectrocautery. The area was copiously irrigated until completely clear and packed with half-inch iod oform packing. An additional area approximately 5 cm away had abscess draining from it and as such I opened this area as well. Make an elliptical incision around the small punctate area, which was fou nd to have a multiloculated abscess, which was completely unroofed, debrided and the cavity was compl etely opened in its entirety for approximately 5 cm x 3 cm x 4 cm. This area was copiously irrigated . Hemostasis was achieved easily with electrocautery. The area was copiously irrigated once again a nd then packed with half-inch iodoform packing, sterile dressing placed over top. The patient tolera the procedure well without evidence of complication, transferred to PACU in good condition. All counts were correct at the end of the case. RADHA/CASIL Voice ID: [id number] Report ID: [id number]
== END 2020-02-11 12:50 | disposition home or self-care (01) ==
LOC: OR 07:15
PROVIDERS: ATTEND Surgery
PROC: 0JB90ZZ Excision of Buttock Subcutaneous Tissue and Fascia, Open Approach (ICD-10-PCS; 2020-02-11)
PROC: 0JB70ZZ Excision of Back Subcutaneous Tissue and Fascia, Open Approach (ICD-10-PCS; principal; 2020-02-11 08:30)
DX: L73.2 Hidradenitis suppurativa (principal); L02.31 Cutaneous abscess of buttock; L91.0 Hypertrophic scar; G47.33 Obstructive sleep apnea (adult) (pediatric); E11.9 Type 2 diabetes mellitus without complications; Z88.1 Allergy status to other antibiotic agents; Z20.828 Contact with and (suspected) exposure to other viral communicable diseases
CPT/HCPCS: 87070; 85025; 80048; 36415; 87205 ×2; 82947 ×2; 88304; 87075; 11042 ×2; U0002; J2704; J2250; J3010 ×2; J0690; J7030; J2405; J1100

== ENCOUNTER 2020-03-10 07:06 | Day surgery (SDC) | payer OTHER ==
--- OUTSIDE RECORDS SUMMARY | 2020-03-10 07:13 | XMS REPORT | Continuity of Care Document ---
:1985 Author Organization [facility] t Address [address] [place] [address] Dr. Solo [address] [place] [address] Care Team Providers Name Role Phone Domenico [...] t [facility] Hidradenit Hidradenit Problem Active [facility] is is [facility] supp[facility]ativ suppurativ [facility] Morbid Morbid Problem Active [facility] obesity obesity [facility] Depression Depression Problem Active [facility] screening screening [facility] Anxiety Anxiety Problem Active [facility] Abscess of Abscess of Problem Active [facility] chest chest [facility] Right Right Problem Active [facility] inguinal inguinal [facility] Status Status Problem Active [facility] post fall post fall [facility] Pain in Pain in Problem Active [facility] right arm right arm [facility] Pain in Pain in Problem Active [facility] left arm left arm [facility] Pain in Pain in Problem Active [facility] right knee right knee [facility] Pain in Pain in Problem Active [facility] left knee left knee [facility] CPAP CPAP Problem Active [facility] (continuou (continuou [facility] kes - s positive s positive Me moria airway airway l pressure) pressure) 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 GABE GABE Problem Active [facility] (obstructi (obstructi Funmilayo kes - ve sleep ve sleep Memori a apnea) apnea) [facility] BMI 70 and BMI 70 and Problem Active [facility] over, over, [facility] Tooth pain Tooth pain Diagnosis Active [facility] Encounter Encounter Diagnosis Active [facility] for for [facility] general general [facility] adult adult l medical medical [facility] examinatio examinatio en t n without n without Clin ics abnormal abnormal findings findings Allergies, Adverse Reactions, Alerts Allergy Allergy Status Severity Reaction(s) Onset Inactive Treating Comm ents Source Name Type Date Date Clinician Ciproflo Adverse Active Rash [facility] xacin Reaction [facility] Medications Ordered Filled Start Stop Current Ordering Indication Dosage Frequency Signature Comments Components Source Medication Medication Date Date Medication? Clinician (SIG) Name Name Metformin Metformin Yes Josey [address] [facility] HCl HCl [facility] with a [facility] - meal [facility] Spironolact Spironolact Yes Josey [address] [facility] one one Millender [facility] Trazodone Trazodone Yes Josey [address] [facility] [address] HCl HCl Millender at bedtime Luke [facility] - as needed [facility] Topiramate Topiramate Yes Josey [address] [facility] Acetaminoph Acetaminoph Yes Josey (Schedule [facility] en-Codeine en-Codeine Millender III Drug) [facility] - #3 #3 [facility] Procedures This patient has no known procedures. Encounters Start End Encounter Admission Attending Care Care Encounter Source Date/Time Date/Time Type Type Clinicians Facility Department ID 2020-02-13 2020-02-13 Outpatient 3 Christy Acuña [facility] [id number] St. 08:29:00 23:59:00 Christy Acuña [facility] 2020-02-13 2020-02-13 Outpatient 3 Christy Acuña [facility] [id number] St. 08:29:00 08:29:00 Christy Acuña -20 [id number] [facility] 2019-12-02 2019-12-02 [facility] [id number] [facility] [address] 08:[facility]00 08:00:00 [facility] Outpat[facility] Clinics 2019-10-11 2019-10-11 [facility] [id number] 22:02:00 22:02:00 [facility] Clin[facility] 2019-10-07 2019-10-07 [facility] [id number] 15[facility]00:00 15:00:00 [facility] Clinics 2019-05-26 2019-05-26 [facility] [id number] 09[facility]45:00 09:45:00 [facility] 2019-02-24 2019-02-24 [facility] [id number] 09:00:00 09:00:00 [facility] Clin[facility] Results This patient has no known results.
[2020-03-10] MEDS ORDERED: BUPIVACA 0.25%/EPI 0.0005%/PF 30 ML VIAL ONE (07:38)
[2020-03-10] MEDS ORDERED: LIDOCAINE 1% 20 ML MDV ONE (07:39)
[2020-03-10] MEDS ORDERED: propofoL 200 MG/20 ML VIAL IV ONE (07:41)
[2020-03-10] MEDS ORDERED: MIDAZOLAM HCL 2 MG/2 ML INJ ONE ×2 (07:41→08:29)
[2020-03-10] MEDS ORDERED: FENTANYL CITR 100 MCG/2 ML ONE (07:41)
[2020-03-10] MEDS ORDERED: LIDOCAINE 2% MPF 5 ML VIAL ONE (07:42)
[2020-03-10] MEDS ORDERED: SUCCINYLCHOLINE 20 MG/ML (10 ML) IV ONE (07:46)
[2020-03-10] MEDS ORDERED: CEFAZOLIN/SWI 1gm 1 GM/10 ML SYR ONE ×2 (07:53→08:16)
[2020-03-10] MEDS ORDERED: NA CHLORIDE 0.9% 1,000 ML ONE (07:53)
[2020-03-10] MEDS ORDERED: ONDANSETRON 4 MG/2 ML VIAL ONE (08:22)
[2020-03-10] MEDS ORDERED: Mastisol Adhesive Liq ONE (08:24)
[2020-03-10] MEDS ORDERED: GLYCOPYRROLATE 0.2 MG/ML SYR ONE (08:27)
--- NOTE | 2020-03-10 08:40 | P.OP ---
Preoperative diagnosis: Hidrainitis Suppuritiva of LEFT neck Postoperative diagnosis: Hidrainitis Suppuritiva of LEFT neck Primary procedure: Wide Local Excisional Debridement of Hidrainitis Suppuritiva of LEFT neck Anesthesia: MAC + Local Estimated blood loss: <10cc Specimen: Debridement Tissue Findings: 3x3 cm defect down to fascia over muscle Implants: none Transferred to: Recovery Room Condition: Good
[2020-03-10 09:14] VITALS: TEMP 97.2
[2020-03-10 09:46] VITALS: BP 116/87; O2SAT 98
[2020-03-10] MEDS ORDERED: HYDROCODONE/APAP 10/325 TAB ONE (10:10)
--- NOTE | 2020-03-10 10:50 | OP ---
Date of Procedure: 03/10/2020 Surgeon: Lawrence Contreras MD, Preoperative Diagnosis: Hidradenitis suppurativa of left neck. Postoperative Diagnosis: Hidradenitis suppurativa of left neck. Procedure Performed: Wide local excision of hidradenitis suppurativa of left neck. Anesthesia: MAC plus local with 0.25% Marcaine with epinephrine. Estimated Blood Loss: Less than 10 mL. Specimen: Debridement tissue. Findings: 3 x 3 cm defect down to fascia overlying muscle. Implants: None. Disposition: The patient was transferred to recovery room in good condition. Procedure In Detail: After informed was obtained, the patient was brought to the operating room, pre pped and draped in the usual sterile fashion. After adequate anesthesia was achieved, the area over the left neck was anesthetized appropriately with local anesthesia as described above. A 15 blade wa s used to dissect down through subcutaneous tissues to expose an area of hidradenitis suppurativa tis stacey. Clear fluid was returned at this point without abscess. I circumferentially dissected out this abnormal epithelialized tissue circumferentially for approximately 3 x 3 cm down to the fascia overl jacques the muscle. This was then removed down to the layer of the platysma. At this point, the debrid ed tissue was sent off for pathologic examination. The area was copiously irrigated. Hemostasis was achieved with electrocautery and the area was clean and dry. I then closed the wound using miranda jean 2-0 nylon suture with good approximation tissues and a sterile dressing was placed over top. The patient tolerated the procedure well without evidence of complication and transferred to PACU in goo d condition. All counts were correct at the end of the case. RADHA/HEIDI Voice ID: [id number] Report ID: [id number]
== END 2020-03-10 10:45 | disposition home or self-care (01) ==
LOC: OR 07:06
PROVIDERS: ATTEND Surgery
PROC: 0HB4XZZ Excision of Neck Skin, External Approach (ICD-10-PCS; 2020-03-10)
PROC: 0JB50ZZ Excision of Left Neck Subcutaneous Tissue and Fascia, Open Approach (ICD-10-PCS; principal; 2020-03-10 08:00)
DX: L73.2 Hidradenitis suppurativa (principal); L91.8 Other hypertrophic disorders of the skin; Z20.828 Contact with and (suspected) exposure to other viral communicable diseases
CPT/HCPCS: 82947; 88304; 88305; J0330; J0690; J2250; J2405; J2704; J3010; J7030; U0002

== ENCOUNTER 2020-03-29 07:27 | Day surgery (SDC) | payer OTHER ==
[2020-03-29] MEDS ORDERED: NA CHLORIDE 0.9% 1,000 ML ONE (08:04)
[2020-03-29] MEDS ORDERED: BUPIVACA 0.5%/EPI 0.0005%/PF 30 ML VIAL ONE (08:07)
[2020-03-29] MEDS ORDERED: BUPIVACAINE 0.25% PF 30 ML VIAL ONE (08:07)
--- OUTSIDE RECORDS SUMMARY | 2020-03-29 08:11 | XMS REPORT | Continuity of Care Document ---
:[address] [facility] t Address [address] [place] [address] Dr. Solo [address] [place] [address] Care Team Providers Name Role Phone Domenico [...] t [facility] neck [facility] Hidradenit Hidradenit Problem Active [facility] is is [facility]ativ suppurativ [facility] Morbid Morbid Problem Active [facility] obesity obesity [facility] Depression Depression Problem Active [facility] screening screening [facility] Anxiety Anxiety Problem Active [facility] Abscess of Abscess of Problem Active [facility] chest chest [facility] Right Right Problem Active [facility] inguinal inguinal [facility] Status Status Problem Active [facility] post fall post fall [facility] Pain in Pain in Problem Active [facility] right arm right arm [facility] Pain in Pain in Problem Active [facility] left arm left arm [facility] Pain in Pain in Problem Active [facility] right knee right knee [facility] - [facility] Pain in Pain in Problem Active [facility] left knee left knee [facility] CPAP CPAP Problem Active [facility] (continuou (continuou [facility] kes - s positive s positive Me moria airway airway l pressure) pressure) 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 GABE GABE Problem Active [facility] (obstructi (obstructi Funmilayo kes - ve sleep ve sleep Memori a apnea) apnea) [facility] ent [facility] BMI 70 and BMI 70 and Problem Active [facility] over, over, [facility] adult [facility] Tooth pain Tooth pain Diagnosis Active [facility] Encounter Encounter Diagnosis Active [facility] for for [facility] general general [facility] adult adult l medical medical [facility] examinatio examinatio en t n without n without Clin ics abnormal abnormal findings findings Allergies, Adverse Reactions, Alerts Allergy Allergy Status Severity Reaction(s) Onset Inactive Treating Comm ents Source Name Type Date Date Clinician Ciproflo Adverse Active Rash [facility] xacin Reaction [facility] Medications Ordered Filled Start Stop Current Ordering Indication Dosage Frequency Signature Comments Components Source Medication Medication Date Date Medication? Clinician (SIG) Name Name Metformin Metformin Yes Josey [address] [facility] [address] HCl HCl [place] with a [facility] - meal [facility] Spironolact Spironolact Yes Josey [address] [facility] one one Millender [facility] Trazodone Trazodone Yes Josey [address] HCl HCl Millender at bedtime [facility] - as needed [facility] Topiramate Topiramate Yes Josey [address] [facility] [facility] Acetaminoph Acetaminoph Yes Josey (Schedule [facility] en-Codeine en-Codeine Millender III Drug) [facility] - #3 #3 [facility] Procedures This patient has no known procedures. Encounters Start End Encounter Admission Attending Care Care Encounter Source Date/Time Date/Time Type Type Clinicians Facility Department ID 2020-02-13 2020-02-13 Outpatient 3 Christy Acuña [facility] [id number] St. 08:29:00 23:59:00 Christy Acuña [facility] 2020-02-13 2020-02-13 Outpatient 3 Christy Acuña [facility] [id number] St. 08:29:00 08:29:00 Christy Acuña -20 [id number] [facility] 2019-12-02 2019-12-02 [facility] [id number] 08:00:00 08:00:00 [facility] Medicine Outpati ent Clinics 2019-10-11 2019-10-11 [facility] [id number] 22:02:00 22:02:00 [facility] Medicine Outpati ent Clinics 2019-10-07 2019-10-07 [facility] [id number] 15:00:00 15:00:00 [facility] Medicine Outpati ent Clinics 2019-05-26 2019-05-26 [facility] [id number] 09:45:00 09:45:00 [facility] Medicine Outpati ent Clinics 2019-02-24 2019-02-24 [facility] [id number] 09:00:00 09:00:00 [facility] Clin[facility] Results This patient has no known results.
[2020-03-29] MEDS ORDERED: ONDANSETRON 4 MG/2 ML VIAL ONE (08:16)
[2020-03-29] MEDS ORDERED: ROCURONIUM 50 MG/5 ML VIAL IV ONE (08:16)
[2020-03-29] MEDS ORDERED: FENTANYL CITR 100 MCG/2 ML ONE (08:16)
[2020-03-29] MEDS ORDERED: MIDAZOLAM HCL 2 MG/2 ML INJ ONE (08:16)
[2020-03-29] MEDS ORDERED: dexAMETHasone 10 MG/ML VIAL ONE (08:16)
[2020-03-29] MEDS ORDERED: propofoL 200 MG/20 ML VIAL IV ONE (08:16)
[2020-03-29] MEDS ORDERED: KETOROLAC 30 MG/ML INJ ONE (08:17)
[2020-03-29] MEDS ORDERED: LIDOCAINE 2% MPF 5 ML VIAL ONE (08:17)
[2020-03-29] MEDS: CEFAZOLIN/SWI 1gm 1 GM/10 ML SYR ONE ×2 (08:30→08:32)
[2020-03-29] MEDS ORDERED: CEFAZOLIN SODIUM 1 GM/VIAL ONE (08:45)
--- NOTE | 2020-03-29 09:14 | P.OP ---
Preoperative diagnosis: LEFT Flank Hidrainitis Suppuritiva Postoperative diagnosis: LEFT Flank Hidrainitis Suppuritiva Primary procedure: Excisional Debridement of LEFT Flank Hidrainitis Suppuritiva Anesthesia: GETA + Local Estimated blood loss: < 5cc Specimen: Debridement Tissue Findings: 8cm x 10cm down to subcutaneous fat Complications: None Transferred to: Recovery Room Condition: Good
--- NOTE | 2020-03-29 10:49 | OP ---
Date of Procedure: 03/29/2020 Surgeon: Lawrence Contreras MD, Preoperative Diagnosis: Left flank hidradenitis suppurativa. Postoperative Diagnosis: Left flank hidradenitis suppurativa. Procedure Performed: Excisional debridement of left flank hidradenitis suppurativa. Anesthesia: General endotracheal plus local with 0.25% Marcaine with epinephrine. Estimated Blood Loss: Less than 5 mL. Specimen: Debridement tissue. Findings: An 8 cm x 2 cm down to subcutaneous fat area of hidradenitis suppurativa of the left flank . Complications: None. Disposition: Transferred to recovery room in good condition. Procedure In Detail: After informed consent was obtained, the patient was brought to the operating r oom, prepped and draped in the usual sterile fashion. After adequate anesthesia was achieved, an ell iptical incision of approximately 10 x 8 cm was dissected down through subcutaneous tissues with a 15 blade down to subcutaneous tissues. Ultimately, I transitioned to electrocautery and dissected down circumferentially down to the subcutaneous fat in area of hidradenitis suppurativa. It was taken of f en bloc. The specimen was sent off for pathologic examination. The area was copiously irrigated. Hemostasis was achieved with electrocautery. The skin was then closed using interrupted 2-0 nylon s utures and a sterile dressing placed over top. The patient tolerated the procedure well without evidence of complication and transferred to PACU in good condition. All counts were correct at the e nd of the case. RADHA/HEIDI Voice ID: [id number] Report ID: [id number]
[2020-03-29 12:14] VITALS: BP 110/54; TEMP 97.1; O2SAT 99
== END 2020-03-29 10:45 | disposition home or self-care (01) ==
LOC: OR 07:27
PROVIDERS: ATTEND Surgery
PROC: 0JB80ZZ Excision of Abdomen Subcutaneous Tissue and Fascia, Open Approach (ICD-10-PCS; principal; 2020-03-29 08:30)
DX: L73.2 Hidradenitis suppurativa (principal)
CPT/HCPCS: 82947 ×2; 11042; J2704; J2250; J3010; J1100; J0690 ×2; J7030; J2405

== ENCOUNTER 2020-05-10 07:55 | Day surgery (SDC) | payer OTHER ==
--- OUTSIDE RECORDS SUMMARY | 2020-05-10 08:18 | XMS REPORT | Continuity of Care Document ---
:1985 Author Organization [facility] t Address [address] [place] [address] Dr. Solo [address] [place] [address] Care Team Providers Name Role Phone Unavailable [...] t neck neck [facility] Hidradenit Hidradenit Problem Active [facility] HI [facility] is is [facility] suppurativ suppurativ Me moria a a l [facility] Morbid Morbid Problem Active [facility] obesity obesity [facility] Depression Depression Problem Active [facility] screening screening [facility] Anxiety Anxiety Problem [facility] Abscess of Abscess of Problem Active [facility] chest chest [facility] Right Right Problem Active [facility] inguinal inguinal [facility] pain [facility] Status Status Problem Active [facility] post fall post fall [facility] Pain in Pain in Problem Active [facility] right arm right arm [facility] Pain in Pain in Problem Active [facility] left arm left arm [facility] Pain in Pain in Problem Active [facility] right knee right knee [facility] - [facility] Pain in Pain in Problem Active [facility] left knee left knee [facility] CPAP CPAP Problem Active [facility] (continuou (continuou Funmil[facility]o kes - s positive s positive Me moria airway airway l pressure) pressure) 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 adult adult l medical medical [facility] examinatio examinatio en t n without n without Clin ics abnormal abnormal findings findings Allergies, Adverse Reactions, Alerts Allergy Allergy Status Severity Reaction(s) Onset Inactive Treating Comm ents Source Name Type Date Date Clinician Ciproflo Adverse Active Rash [facility] xacin Reaction [facility] Medications Ordered Filled Start Stop Current Ordering Indication Dosage Frequency Signature Comments Components Source Medication Medication Date Date Medication? Clinician (SIG) Name Name Metformin Metformin Yes Josey [address] [facility] HCl HCl Millender with a [facility] - meal [facility] Spironolact Spironolact Yes Josey [address] [facility] one one Millender [facility] Trazodone Trazodone Yes Josey [address] HCl HCl Millender at bedtime [facility] - as needed [facility] Topiramate Topiramate Yes Josey [address] [facility] [facility] Acetaminoph Acetaminoph Yes Josey (Schedule [facility] en-Codeine en-Codeine Millender III Drug) [facility] - #3 #3 [facility] ent [facility] Procedures This patient has no known procedures. Encounters Start End Encounter Admission Attending Care Care Encounter Source Date/Time Date/Time Type Type Clinicians Facility Department ID 2019-12-02 2019-12-02 Outpatient Siva Fallon [id number] [address] 08[facility]00:00 08:00:00 [facility] 2019-10-11 2019-10-11 Outpatient Siva Fallon [id number] 22:02:00 22:02:00 [facility] 2019-10-07 2019-10-07 Outpatient Siva Fallon [id number] 15:00:00 15:00:00 [facility] 2019-05-26 2019-05-26 Outpatient Siva Fallon [id number] 09:45:00 09:45:00 [facility] 2019-02-24 2019-02-24 Outpatient Siva Fallon [id number] 09:00:00 09:00:00 [facility] ent Clinics Results This patient has no known results.
[2020-05-10] MEDS ORDERED: CEFAZOLIN/SWI 2gm 2 GM/20 ML SYR ONE (08:35)
[2020-05-10] MEDS ORDERED: Ringers Lactate 1,000 ML IV ONE (08:35)
[2020-05-10] MEDS: BUPIVACA 0.5%/EPI 0.0005%/PF 30 ML VIAL ONE ×2 (09:05→09:49)
[2020-05-10] MEDS ORDERED: propofoL 200 MG/20 ML VIAL IV ONE (09:23)
[2020-05-10] MEDS ORDERED: FENTANYL CITR 100 MCG/2 ML ONE (09:24)
[2020-05-10] MEDS ORDERED: MIDAZOLAM HCL 2 MG/2 ML INJ ONE (09:24)
[2020-05-10] MEDS ORDERED: ROCURONIUM 50 MG/5 ML VIAL IV ONE (09:27)
[2020-05-10] MEDS ORDERED: dexAMETHasone 10 MG/ML VIAL ONE (09:53)
--- NOTE | 2020-05-10 10:13 | P.OP ---
Preoperative diagnosis: Hidrainitis Suppuritiva Postoperative diagnosis: Hidrainitis Suppuritiva Primary procedure: Wide Excision of Hidrainitis Suppuritiva of Superior Jeannette Cleft and Secondary procedure: RIGHT buttock Anesthesia: GETA + Local Estimated blood loss: <5cc Specimen: Debridement Tissue, Cultures Findings: 10cm x 8 cm into subcutaneous fat Complications: None Transferred to: Recovery Room Condition: Good
[2020-05-10] MEDS ORDERED: KETOROLAC 30 MG/ML INJ ONE (10:17)
[2020-05-10] MEDS ORDERED: MORPHINE 10 MG/ML VIAL ONE (10:17)
--- NOTE | 2020-05-10 10:52 | OP ---
Date of Procedure: 05/10/2020 Surgeon: Lawrence Contreras MD, Preoperative Diagnosis: Hidradenitis suppurativa. Postoperative Diagnosis: Hidradenitis suppurativa. Procedure Performed: Wide excision of hidradenitis suppurativa of superior cleft and right but tock. Anesthesia: General endotracheal plus local. Estimated Blood Loss: Less than 5 mL. Specimen: Debridement tissue and cultures sent for both aerobic and anaerobic speciation. Findings: A 10 cm x 8 cm into subcutaneous fat defect at the superior michelle cleft lifting to the rig ht side of the buttock. Complications: None. Disposition: Transferred to recovery room in good condition. Procedure In Detail: After informed consent was obtained, the patient was brought to the operating r oom, prepped and draped in the usual sterile fashion. After adequate anesthesia achieved, a knife wa s used to dissect around the superior michelle cleft and right buttock area including approximately 10 x 8 cm defect of hidradenitis suppurativa. There was abscess material evident. This was cultured for both aerobic and anaerobic speciation. Electrocautery was used to dissect down to the subcutaneous fat circumferentially to remove all this obviously abnormal tissue. Debridement tissue was sent off for pathologic examination. The area was then cleansed and hemostasis was achieved with electrocaute ry. The area was cleansed once again and dried. A sterile dressing was placed and then packed into the wound, and the patient tolerated the procedure well without evidence of complication and transferred to PACU in good condition. All counts were correct at the end of the ca se. RADHA/MODL Voice ID: [id number] Report ID: [id number]
[2020-05-10 11:30] VITALS: BP 111/58; TEMP 97.8; O2SAT 97
== END 2020-05-10 12:05 | disposition home or self-care (01) ==
LOC: PRE 07:55
PROVIDERS: ATTEND Surgery
PROC: 0JB90ZZ Excision of Buttock Subcutaneous Tissue and Fascia, Open Approach (ICD-10-PCS; principal; 2020-05-10 09:15)
DX: L73.2 Hidradenitis suppurativa (principal); Z20.828 Contact with and (suspected) exposure to other viral communicable diseases
CPT/HCPCS: 87070; 87205 ×2; 88304; 87075; 87077; 87186; 11470; U0002; J2704; J2250; J3010; J1100; J0690; J7120; 88305

== ENCOUNTER 2020-08-11 07:40 | Day surgery (SDC) | payer OTHER ==
[2020-08-11] MEDS ORDERED: Ringers Lactate 1,000 ML IV ONE (08:43)
[2020-08-11] MEDS ORDERED: CEFAZOLIN/SWI 2gm 2 GM/20 ML SYR ONE (08:43)
[2020-08-11] MEDS ORDERED: propofoL 200 MG/20 ML VIAL IV ONE (09:03)
[2020-08-11] MEDS ORDERED: FENTANYL CITR 100 MCG/2 ML ONE ×2 (09:03→10:02)
[2020-08-11] MEDS ORDERED: MIDAZOLAM HCL 2 MG/2 ML INJ ONE (09:03)
[2020-08-11] MEDS ORDERED: ONDANSETRON 4 MG/2 ML VIAL ONE (09:05)
[2020-08-11] MEDS ORDERED: BUPIVACA 0.25%/EPI 0.0005% MDV 50 ML VIAL ONE (09:07)
--- NOTE | 2020-08-11 09:55 | P.OP ---
Preoperative diagnosis: LEFT Flank Hidrainitis Suppuritiva Postoperative diagnosis: LEFT Flank Hidrainitis Suppuritiva Primary procedure: Wide Local Excision of LEFT Flank Hidrainitis Suppuritiva Anesthesia: GETA + Local Estimated blood loss: <10cc Specimen: LEFT Flank Hidrainitis Suppuritiva, cultures sent Findings: 24 cm x 9cm x 8 cm LEFT Flank Hidrainitis Suppuritiva Complications: None Transferred to: Recovery Room Condition: Good
[2020-08-11] MEDS ORDERED: SODIUM HYPOCHLORITE 0.25% 473 ML ONE (09:59)
[2020-08-11] MEDS ORDERED: dexAMETHasone 10 MG/ML VIAL ONE (10:02)
[2020-08-11] MEDS: HYDROMORPHONE HCL 1 MG/ML INJ ONE ×2 (10:10→10:15)
[2020-08-11] MEDS ORDERED: KETOROLAC 30 MG/ML INJ ONE (10:17)
[2020-08-11] MEDS: FENTANYL CITR 100 MCG/2 ML ONE ×4 (10:22→10:38)
--- NOTE | 2020-08-11 10:24 | OP ---
Date of Procedure: 08/11/2020 Surgeon: Lawrence Contreras MD, Preoperative Diagnosis: Left flank hidradenitis suppurativa. Postoperative Diagnosis: Left flank hidradenitis suppurativa. Procedure: Wide local excision of left flank hidradenitis suppurativa. Anesthesia: General endotracheal plus local with 0.25% Marcaine with epinephrine. Estimated Blood Loss: Less than 10 mL. Specimen: Left flank hidradenitis suppurativa as well as culture sent for both aerobic and anaerobic speciation. Findings: 24 cm x 9 cm x 8 cm left flank hidradenitis suppurativa. Complications: None. Disposition: The patient was transferred to recovery room in good condition. Procedure In Detail: After informed consent was obtained, the patient was brought to the operating r oom, prepped and draped in the usual sterile fashion after adequate anesthesia achieved. I placed ad ditional anesthesia along the incision sebastian over the left flank hidradenitis suppurativa area. This was taken down using a 10 blade down to subcutaneous tissues. Electrocautery was used to dissect ci rcumferentially around abscesses. Multiple abscesses were encountered. They were sent for both aero bic and anaerobic speciation cultures at this time. I then removed the entire hidradenitis suppurati va tissue down to subcutaneous tissues into the fat plane, but not extending into fascia. I circumfe rentially removed this tissue, which was found to be approximately, the size measured 24 x 9 x 8 cm. This was sent off for pathologic examination. The area was copiously irrigated multiple times until completely clear. Hemostasis was achieved with electrocautery. I then reapproximated half the inci nu using interrupted 2-0 nylon sutures and placed a Dakin damp to dry Kerlix roll into the wound un sly the sutured area as well as extending through the open portion of the incision on the anterior me dial aspect. I then placed a sterile dressing on top. The patient tolerated the procedure well with out evidence of complication and transferred to PACU in good condition. All counts were correct at t he end of the case. TK/MODL Voice ID: [id number] Report ID: [id number]
[2020-08-11] MEDS ORDERED: HYDROCODONE/APAP 10/325 TAB ONE (11:16)
[2020-08-12 10:29] VITALS: BP 110/65; TEMP 97; O2SAT 97
== END 2020-08-11 12:05 | disposition home or self-care (01) ==
LOC: OR 07:40
PROVIDERS: ATTEND Surgery
PROC: 0JB80ZZ Excision of Abdomen Subcutaneous Tissue and Fascia, Open Approach (ICD-10-PCS; principal; 2020-08-11 09:30)
DX: L73.2 Hidradenitis suppurativa (principal); Z20.822 Contact with and (suspected) exposure to COVID-19
CPT/HCPCS: 87070; 87205; 88304; 87075; 11470; U0003; J2704; J2250; J3010 ×3; J1100; J1170; J0690; J7120; J2405; 88305

== ENCOUNTER 2020-10-01 07:51 | Day surgery (SDC) | payer OTHER ==
[2020-10-01] MEDS ORDERED: CEFAZOLIN/SWI 2gm 2 GM/20 ML SYR ONE (08:20)
[2020-10-01] MEDS ORDERED: Ringers Lactate 1,000 ML IV ONE (08:20)
[2020-10-01] MEDS: BUPIVACAINE 0.5% PF 10 ML VIAL ONE ×2 (08:51→09:41)
[2020-10-01] MEDS ORDERED: SUCCINYLCHOLINE 20 MG/ML (10 ML) IV ONE (09:23)
[2020-10-01] MEDS ORDERED: propofoL 200 MG/20 ML VIAL IV ONE ×2 (09:43→09:59)
[2020-10-01] MEDS ORDERED: LIDOCAINE 1% MPF 5 ML VIAL ONE (09:43)
[2020-10-01] MEDS ORDERED: ROCURONIUM 50 MG/5 ML VIAL IV ONE (09:46)
[2020-10-01] MEDS ORDERED: KETOROLAC 30 MG/ML INJ ONE (10:00)
--- NOTE | 2020-10-01 10:03 | P.OP ---
Preoperative diagnosis: Central Chest Hidradinitis Suppuritiva Postoperative diagnosis: Central Chest Hidradinitis Suppuritiva Primary procedure: Wide Local Excision of Central Chest Hidradinitis Suppuritiva Anesthesia: GETA + Local Estimated blood loss: <20cc Specimen: Debridement Tissue ~ 15cm x 7cm into subcutanous fat Findings: Central Chest Hidradinitis Suppuritiva Complications: None Transferred to: Recovery Room Condition: Good
[2020-10-01] MEDS ORDERED: ONDANSETRON 4 MG/2 ML VIAL ONE (10:11)
[2020-10-01] MEDS ORDERED: PROMETHAZINE INJ 25 MG/ML AMP ONE (10:38)
[2020-10-01 11:28] VITALS: BP 129/75; TEMP 97.6; O2SAT 96
--- NOTE | 2020-10-01 20:43 | OP ---
Date of Procedure: 10/01/2020 Surgeon: Lawrence Contreras MD, Preoperative Diagnosis: Central chest hidradenitis suppurativa. Postoperative Diagnosis: Central chest hidradenitis suppurativa. Procedure Performed: Wide local excision of central chest hidradenitis suppurativa. Anesthesia: General endotracheal plus local with 0.25% Marcaine. Estimated Blood Loss: Less than 20 cc. Specimen: Debridement of tissue 15 cm x 7 cm down to subcutaneous fat. Findings: Central chest hidradenitis suppurativa as described above. Complications: None. Disposition: The patient transferred to recovery room in good condition. Procedure In Detail: After informed consent was obtained, the patient was brought to the operating r oom, prepped and draped in the usual sterile fashion after adequate anesthesia was achieved. I place d additional anesthesia circumferentially around the area of demarcation for approximately 15 x 7 cm on the central chest. I cut down through subcutaneous tissues with a 10 blade down to the subcutaneo us tissues and then used electrocautery to dissect down to subcutaneous fat. Hidradenitis tissue was then immediately encountered. I then circumferentially removed this wedge of hidradenitis infected tissue and sent it off for pathologic examination as described by the size above. I then achieved he mostasis with electrocautery. The area was copiously irrigated multiple times and then dried it comp letely. The wound was then closed with interrupted 2-0 nylon sutures with good apposition of the tis sues. Sterile dressing was then placed over top with pressure dressing. The patient tolerated the p rocedure well without evidence of complication and transferred to PACU in good condition. All counts were correct at the end of the case. RADHA/CASIL Voice ID: [id number] Report ID: [id number]
== END 2020-10-01 11:36 | disposition home or self-care (01) ==
LOC: OR 07:51
PROVIDERS: ATTEND Surgery
PROC: 0JB60ZZ Excision of Chest Subcutaneous Tissue and Fascia, Open Approach (ICD-10-PCS; principal; 2020-10-01 09:15)
DX: L73.2 Hidradenitis suppurativa (principal); Z20.822 Contact with and (suspected) exposure to COVID-19
CPT/HCPCS: 88304; 11406; U0003; J2704 ×2; J2550; J0330; J0690; J7120; J2405

== ENCOUNTER 2020-11-05 08:29 | Day surgery (SDC) | payer OTHER ==
[2020-11-05] MEDS ORDERED: Ringers Lactate 1,000 ML IV ONE ×2 (09:11→12:07)
[2020-11-05] MEDS ORDERED: CEFAZOLIN/SWI 2gm 2 GM/20 ML SYR ONE (09:20)
[2020-11-05] MEDS ORDERED: BUPIVACAINE 0.25% PF 30 ML VIAL ONE (09:41)
[2020-11-05] MEDS ORDERED: FENTANYL CITR 100 MCG/2 ML ONE (10:05)
[2020-11-05] MEDS ORDERED: LIDOCAINE 1% MPF 5 ML VIAL ONE (10:05)
[2020-11-05] MEDS ORDERED: ROCURONIUM 50 MG/5 ML VIAL IV ONE (10:05)
[2020-11-05] MEDS ORDERED: propofoL 200 MG/20 ML VIAL IV ONE (10:05)
[2020-11-05] MEDS ORDERED: GLYCOPYRROLATE 0.2 MG/ML SYR ONE (10:46)
[2020-11-05] MEDS ORDERED: EPHEDRINE SULF 50 MG/ML VIAL ONE (10:53)
[2020-11-05] MEDS ORDERED: SODIUM HYPOCHLORITE 0.25% 473 ML ONE (10:56)
[2020-11-05] MEDS: MORPHINE 4 MG/ML SYR ONE ×2 (11:18→11:23)
--- NOTE | 2020-11-05 11:32 | P.OP ---
Preoperative diagnosis: Bilateral Buttock Hidrainitis Postoperative diagnosis: Bilateral Buttock Hidrainitis Primary procedure: Wide Debridement of Bilateral Buttock Hidrainitis Anesthesia: GETA Estimated blood loss: 20cc Specimen: debridement tissue Findings: ~25x18 cm down to subcutanous fat Complications: None Transferred to: Recovery Room Condition: Good
[2020-11-05] MEDS ORDERED: SUCCINYLCHOLINE 20 MG/ML (10 ML) IV ONE (11:33)
[2020-11-05] MEDS ORDERED: PROMETHAZINE INJ 25 MG/ML AMP ONE (11:38)
[2020-11-05] MEDS ORDERED: MEPERIDINE HCL 25 MG/ML SYR ONE ×2 (11:39→12:04)
[2020-11-05] MEDS: MEPERIDINE HCL 50 MG/ML ONE ×2 (11:50→11:55)
[2020-11-05 11:57] VITALS: O2SAT 100
--- NOTE | 2020-11-05 12:24 | OP ---
Date of Procedure: 11/05/2020 Surgeon: Lawrence Contreras MD, Preoperative Diagnosis: Bilateral buttock hidradenitis. Postoperative Diagnosis: Bilateral buttock hidradenitis. Procedure: Wide debridement of bilateral buttock hidradenitis. Anesthesia: General endotracheal. Estimated Blood Loss: Less than 20 mL. Specimen: Debridement tissue. Findings: Approximately 25 cm x 18 cm down to subcutaneous fat area of hidradenitis. Complications: None. Disposition: The patient was transferred to recovery in good condition. Procedure In Detail: After informed consent was obtained, the patient was brought to the operating r oom, prepped and draped in the usual sterile fashion after adequate anesthesia was achieved. The are a of the bilateral buttocks was demarcated with a marking pen including several large areas of hidrad enitis suppurativa. These were taken down with a combination of a 15 blade down to subcutaneous tiss ues with electrocautery to dissect down the subcutaneous fat and remove the debridement tissue in its entirety. The specimen was sent off for pathologic examination. The area was copiously irrigated m ultiple times and hemostasis was achieved with electrocautery. There was no anal involvement and the area of debridement was approximately 4 cm from the anal verge. After the tissue was debrided and h emostasis was achieved, the area was irrigated 1 last time and then packed with damp to dry dressing with Dakin solution and sterile dressing placed over top. The patient tolerated the procedure well w ithout evidence of complication and transferred to PACU in good condition. All counts were correct at the end of the ashley e. RADHA/MODL Voice ID: [id number] Report ID: [id number]
[2020-11-05] MEDS ORDERED: HYDROCODONE/APAP 10/325 TAB ONE (13:13)
[2020-11-05 14:41] VITALS: BP 122/51; TEMP 97.6
== END 2020-11-05 14:00 | disposition home or self-care (01) ==
LOC: OR 08:29
PROVIDERS: ATTEND Surgery
PROC: 0JB90ZZ Excision of Buttock Subcutaneous Tissue and Fascia, Open Approach (ICD-10-PCS; principal; 2020-11-05 09:30)
DX: L73.2 Hidradenitis suppurativa (principal); L72.0 Epidermal cyst; Z20.822 Contact with and (suspected) exposure to COVID-19
CPT/HCPCS: 88304; 11470; U0003; J2704; J2550; J0330; J3010; J2175 ×3; J0690; J7120 ×2; 88305

== ENCOUNTER 2021-01-14 11:44 | Emergency (ER) | payer OTHER ==
--- OUTSIDE RECORDS SUMMARY | 2021-01-14 11:48 | XMS REPORT | Continuity of Care Document ---
:1985 Author Organization [facility] t Address [address] [place] [address] Care Team Providers Name Role Phone Nownelyradan Attending Clinician Unavailable Nowrossy Attending Clinician Unavailable Domenico Admitting Clinician Unavailable [...] t neck neck [facility] Hidradenit Hidradenit Problem Active [facility] is is [facility] suppurativ suppurativ Me moria a a l [facility] Morbid Morbid Problem Active [facility] obesity obesity [facility] Depression Depression Problem Active [facility] screening screening [facility] Anxiety Anxiety Problem [facility] Abscess of Abscess of Problem Active [facility] chest chest [facility] Right Right Problem Active [facility] inguinal inguinal [facility] Status Status Problem Active [facility] post fall post fall [facility] Pain in Pain in Problem Active [facility] right arm right arm [facility] Pain in Pain in Problem Active [facility] left arm left arm [facility] Pain in Pain in Problem Active [facility] right knee right knee [facility] Pain in Pain in Problem Active [facility] left knee left knee [facility] CPAP CPAP Problem Active [facility] (continuou (continuou Funmilayo kes - s positive s positive Me moria airway airway l pressure) pressure) 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 GABE GABE Problem Active [facility] (obstructi (obstructi Funmilayo kes - ve sleep ve sleep Memori a apnea) apnea) l [facility] ent [facility] BMI 70 and BMI 70 and Problem Active [facility] over, over, [facility] adult adult [facility] Tooth pain Tooth pain Diagnosis Active [facility] Encounter Encounter Diagnosis Active [facility] for for [facility] general general [facility] adult adult [facility] examinatio examinatio en t n without n without Clin ics abnormal abnormal findings findings Allergies, Adverse Reactions, Alerts Allergy Allergy Status Severity Reaction(s) Onset Inactive Treating Comm ents Source Name Type Date Date Clinician Ciproflo Adverse Active Rash [facility] xacin Reaction [facility] Medications Ordered Filled Start Stop Current Ordering Indication Dosage Frequency Signature Comments Components Source Medication Medication Date Date Medication? Clinician (SIG) Name Name Metformin Metformin Yes Josey [address] [facility] HCl HCl Millender with a [facility] meal [facility] Spironolact Spironolact Yes Josey [address] [facility] one one Millender [facility] Trazodone Trazodone Yes Josey [address] [facility] [address] HCl HCl Millender at bedtime Luke s - as needed [facility] Topiramate Topiramate Yes Josey [address] [facility] Millender [facility] Acetaminoph Acetaminoph Yes Josey (Schedule [facility] en-Codeine en-Codeine Millender III Drug) [facility] - #3 #3 [facility] Procedures This patient has no known procedures. Encounters Start End Encounter Admission Attending Care Care Encounter Source Date/Time Date/Time Type Type Clinicians Facility Department ID 2020-04-19 2020-04-21 Inpatient 3 Christy Acuña [facility] [id number] [facility] 05:19:00 15:41:00 Christy Acuña [facility] 2020-04-19 2020-04-19 Inpatient 3 Christy Acuña [facility] [id number] St. 05:19:00 05:19:00 Christy Acuña -20 [facility] 2020-02-13 2020-02-13 Outpatient 3 Christy Acuña [facility] [id number] St. 08:29:00 23:59:00 Christy Acuña [facility] 2020-02-13 2020-02-13 Outpatient 3 Christy Acuña [facility] [id number] St. 08:29:00 08:29:00 Christy Acuña [facility] 2019-12-02 2019-12-02 [facility] [id number] [facility] 08[facility]00[facility]00 08:00:00 [facility] Outpati ent Clinics 2019-10-11 2019-10-11 [facility] [id number] 22:02:00 22:02:00 [facility] Outpati ent Clinics 2019-10-07 2019-10-07 [facility] [id number] [address] 15:00:00 15:00:00 [facility] Medicine Outpati ent Clinics 2019-05-26 2019-05-26 [facility] [id number] [address] 09:45:00 09:45:00 [facility] Outpat[facility] ent Clinics 2019-02-24 2019-02-24 [facility] [id number] 09[facility]00[facility]00 09:00:00 [facility] Results Test Description Test Time Test Comments Results Result Comments Source Retype 2020-04-20 06:51:50 Test Item Value Reference Range Interpretation Comme nts Methodology (test code = Methodology) Test-Tube(TT) Anti-A (test code = Anti-A) 0 Anti-B (test code = Anti-B) 0 Anti-AB (test code = Anti-AB) NT Anti-D (test code = Anti-D) 4+ ABORh Retype (test code = ABORh Retype) O POS [id number] 06:37:50 Test Item Value Reference Range Interpretation Comments Sodium Level (test code = Sodium 140.0 mmol/L 136.0-145.0 Level) Potassium Level (test code = 3.90 mmol/L 3.50-5.10 Potassium Level) Chloride Level (test code = 110.0 mmol/L 98.0-107.0 H Chloride Level) CO2 (test code = CO2) 22 mmol/L 20-31 Anion Gap (test code = Anion 7.9 mmol/L 5.0-15.0 Gap) BUN (test code = BUN) 10 mg/dL 9-23 Creatinine Level (test code = 0.91 mg/dL 0.70-1.30 Creatinine Level) BUN/Creat Ratio (test code = 11.0 ratio 10.0-20.0 BUN/Creat Ratio) Glucose Level (test code = 100 mg/dL 74-106 Glucose Level) Calcium Level (test code = 8.3 mg/dL 8.3-10.6 Calcium Level) Alk Phos (test code = Alk Phos) 65 U/L 46-116 Bilirubin Total (test code = 0.7 mg/dL 0.2-1.1 Bilirubin Total) Albumin Level (test code = 3.4 g/dL 3.2-4.8 Albumin Level) Protein Total (test code = 6.9 g/dL 5.7-8.2 Protein Total) ALT (test code = ALT) 47 U/L 10-49 AST (test code = AST) 35 U/L <=34 H Globulin (test code = Globulin) 3.5 g/dL 2.3-3.5 A/G Ratio (test code = A/G 1.0 g/dL 0.8-2.0 Ratio) Hemolysis (test code = 0 g/dL 1-2 Hemolysis) Icterus (test code = Icterus) 0 g/dL 1-2 Lipemia (test code = Lipemia) 0 g/dL 1-2 [id number] 06:37:50 Test Item Value Reference Range Interpretation Comments Sodium Level (test 140.0 mmol/L 136.0-145.0 code = Sodium Level) Potassium Level 3.90 mmol/L 3.50-5.10 (test code = Potassium Level) Chloride Level (test 110.0 mmol/L 98.0-107.0 H code = Chloride Level) CO2 (test code = 22 mmol/L 20-31 CO2) Anion Gap (test code 7.9 mmol/L 5.0-15.0 = Anion Gap) BUN (test code = 10 mg/dL 9-23 BUN) Creatinine Level 0.91 mg/dL 0.70-1.30 (test code = Creatinine Level) BUN/Creat Ratio 11.0 ratio 10.0-20.0 (test code = BUN/Creat Ratio) Glucose Level (test 100 mg/dL 74-106 code = Glucose Level) Calcium Level (test 8.3 mg/dL 8.3-10.6 code = Calcium Level) Alk Phos (test code 65 U/L 46-116 = Alk Phos) Bilirubin Total 0.7 mg/dL 0.2-1.1 (test code = Bilirubin Total) Albumin Level (test 3.4 g/dL 3.2-4.8 code = Albumin Level) Protein Total (test 6.9 g/dL 5.7-8.2 code = Protein Total) ALT (test code = 47 U/L 10-49 ALT) AST (test code = 35 U/L <=34 H AST) Globulin (test code 3.5 g/dL 2.3-3.5 = Globulin) A/G Ratio (test code 1.0 g/dL 0.8-2.0 = A/G Ratio) eGFR AA (test code = >60 >=60 eGFR (e stimated eGFR AA) mL/min/1.73 m2 Glomerular Filtration Rate ) is an estimated va lue, calculated from the patient's serum creatinine usin g the MDRD equation. It is NOT the patient 's actual GFR. The eGFR provides a more clinically usef ul measure of kidn ey disease than se rum creatinine alone.This calculation lukasz es sex and race in to account, if the information is provided. If th e race is not provided, and t he patient is -Lizz n, multiply by 1.2 12. If sex is not provided, and t he patient is fema le, multiply by 0.7 42. Results for pat ients <18 years of ag e have not been validated by th e MDRD study and should be interpreted wit h caution. eGFR R esult Interpretation: eGFR > or = 60 is in the Normal RangeeGF R < 60 may mean kid deborah diseaseeGFR < 1 5 may mean kidney failure Rang es recommended by the National Kidney Foundation, http://nkdep.ni h.gov Hemolysis (test code 0 g/dL 1-2 = Hemolysis) Icterus (test code = 0 g/dL 1-2 Icterus) Lipemia (test code = 0 g/dL 1-2 Lipemia) [id number] 06:37:50 Test Item Value Reference Range Interpretation Comments Sodium Level (test 140.0 mmol/L 136.0-145.0 code = Sodium Level) Potassium Level 3.90 mmol/L 3.50-5.10 (test code = Potassium Level) Chloride Level (test 110.0 mmol/L 98.0-107.0 H code = Chloride Level) CO2 (test code = 22 mmol/L 20-31 CO2) Anion Gap (test code 7.9 mmol/L 5.0-15.0 = Anion Gap) BUN (test code = 10 mg/dL 9-23 BUN) Creatinine Level 0.91 mg/dL 0.70-1.30 (test code = Creatinine Level) BUN/Creat Ratio 11.0 ratio 10.0-20.0 (test code = BUN/Creat Ratio) Glucose Level (test 100 mg/dL 74-106 code = Glucose Level) Calcium Level (test 8.3 mg/dL 8.3-10.6 code = Calcium Level) Alk Phos (test code 65 U/L 46-116 = Alk Phos) Bilirubin Total 0.7 mg/dL 0.2-1.1 (test code = Bilirubin Total) Albumin Level (test 3.4 g/dL 3.2-4.8 code = Albumin Level) Protein Total (test 6.9 g/dL 5.7-8.2 code = Protein Total) ALT (test code = 47 U/L 10-49 ALT) AST (test code = 35 U/L <=34 H AST) Globulin (test code 3.5 g/dL 2.3-3.5 = Globulin) A/G Ratio (test code 1.0 g/dL 0.8-2.0 = A/G Ratio) eGFR AA (test code = >60 >=60 eGFR (e stimated eGFR AA) mL/min/1.73 m2 Glomerular Filtration Rate ) is an estimated va lue, calculated from the patient's serum creatinine usin g the MDRD equation. It is NOT the patient 's actual GFR. The eGFR provides a more clinically usef ul measure of kidn ey disease than se rum creatinine alone.This calculation lukasz es sex and race in to account, if the information is provided. If th e race is not provided, and t he patient is -Lizz n, multiply by 1.2 12. If sex is not provided, and t he patient is fema le, multiply by 0.7 42. Results for pat ients <18 years of ag e have not been validated by [facility] MDRD study and should be interpreted wit h caution. eGFR R esult Interpretation: eGFR > or = 60 is in the Normal RangeeGF R < 60 may mean kid deborah diseaseeGFR < 1 5 may mean kidney failure Rang es recommended by the National Kidney Foundation, http://nkdep.ni h.gov eGFR Non-AA (test >60.00 >=60.00 eGFR (isiah mated code = eGFR Non-AA) mL/min/1.73 m2 Glomer ular Filtration Rate ) is an estimated va lue, calculated from the patient's serum creatinine usin g the MDRD equation. It is NOT the patient 's actual GFR. The eGFR provides a more clinically usef ul measure of kidn ey disease than se rum creatinine alone.This calculation lukasz es sex and race in to account, if the information is provided. If th e race is not provided, and t he patient is -Lizz n, multiply by 1.2 12. If sex is not provided, and t he patient is fema le, multiply by 0.7 42. Results for pat ients <18 years of ag e have not been validated by [facility] MDRD study and should be interpreted wit h caution. eGFR R esult Interpretation: eGFR > or = 60 is in the Normal RangeeGF R < 60 may mean kid deborah diseaseeGFR < 1 5 may mean kidney failure Rang es recommended by the National Kidney Foundation, http://nkdep.ni h.gov Hemolysis (test code 0 g/dL 1-2 = Hemolysis) Icterus (test code = 0 g/dL 1-2 Icterus) Lipemia (test code = 0 g/dL 1-2 Lipemia) IG [id number] 06:18:55 Test Item Value Reference Range Interpretation Comments IG (test code = IG) 0.3 % 0.0-5.0 IG Abs (test code = IG Abs) 0 x10 N [id number] 06:18:54 Test Item Value Reference Range Interpretation Comments WBC (test code = WBC) 13.1 x10 4.4-10.5 H RBC (test code = RBC) 3.83 x10 4.10-5.70 L Hgb (test code = Hgb) 9.2 g/dL 13.4-17.4 L Hct (test code = Hct) 30.5 % 38.7-52.0 L MCV (test code = MCV) 79.60 fL 80.00-100.00 L MCHC (test code = 30.20 g/dL 32.00-37.50 L MCHC) RDW CV (test code = 17.5 % 11.5-14.5 H RDW CV) MCH (test code = MCH) 24.0 pg 27.0-32.5 L Platelets (test code = 263.0 x10 140.0-440.0 Platelets) MPV (test code = MPV) 11.3 fL N Slide Review (test Auto Auto Result cr eated by code = Slide Review) GL_SJM_ SLIDE_REV_AUTO nRBC (test code = 0 N nRBC) NRBC Abs (test code = 0.00 x10 N NRBC Abs) Auto [id number] 06:18:54 Test Item Value Reference Range Interpretation Comments Neutro Auto (test code = Neutro 76.4 % 36.0-70.0 H Auto) Lymph Auto (test code = Lymph Auto) 15.2 % 12.0-44.0 [place] Auto (test code = [place] Auto) 7.9 % 0.0-11.0 Eos, Auto (test code = Eos, Auto) 0.0 % 0.0-7.0 Basophil Auto (test code = Basophil 0.2 % 0.0-2.0 Auto) Neutro Absolute (test code = Neutro 10.0 x10 1.6-7.4 H Absolute) Lymph Absolute (test code = Lymph 1.99 x10 .50-4.60 Absolute) [place] Absolute (test code = [place] 1.04 x10 .00-1.20 Absolute) Eos Absolute (test code = Eos 0.00 x10 0.00-0.74 Absolute) Baso Absolute (test code = Baso 0.03 x10 0.00-0.21 Absolute) POC [id number] 12:44:17 Test Item Value Reference Range Interpretation Comments Glucose POC (test 117 mg/dL 70-115 H Notify RN or MDIf you code = Glucose POC) consider your patient critically ill, the Maame-Accu Chec k Infrom II meter should not be used for Glucos e determination. Draw a venous Glucose and send to the main Lab for analysis. POC [id number] 11:43:56 Test Item Value Reference Range Interpretation Comments Glucose POC (test 122 mg/dL 70-115 H If you con underwriting sales representative your code = Glucose POC) patient critically ill, the Maame-Accu Check Infrom II meter should not be used for Glucose determination. Draw a venous Glucose and send to the main Lab for analysis. [id number] 10:55:40 Test Item Value Reference Range Interpretation Comments Methodology (test code = Test-Tube(TT) Methodology) Anti-A (test code = Anti-A) 0 Anti-B (test code = Anti-B) 0 Anti-AB (test code = Anti-AB) NT Anti-D (test code = Anti-D) 4+ ABORh Retype (test code = ABORh O POS Retype) [facility] [id number] 08:59:05 Test Item Value Reference Range Interpretation Comments SC1 IS (test code = SC1 IS) NT SC2 IS (test code = SC2 IS) NT SC3 IS (test code = SC3 IS) NT SC1 37 (test code = SC1 37) 0 SC2 37 (test code = SC2 37) 0 SC3 37 (test code = SC3 37) 0 SC1 AHG (test code = SC1 AHG) 0 SC2 AHG (test code = SC2 AHG) 0 SC3 AHG (test code = SC3 AHG) 0 SC1 CC (test code = SC1 CC) 2+ SC2 CC (test code = SC2 CC) 2+ SC3 CC (test code = SC3 CC) 2+ Antibody Screen (3C) (test code Negative ABSC = Antibody Screen (3C)) [id number] 08:33:14 Test Item Value Reference Range Interpretation Comments Previous History (test code = No Prev History Previous History) BBID (test code = BBID) [id number] Methodology (test code = Test-Tube(TT) Methodology) Anti-A (test code = Anti-A) 0 Anti-B (test code = Anti-B) 0 Anti-D (test code = Anti-D) 4+ DCon (test code = DCon) NT A1 (test code = A1) 4+ B cells (test code = B cells) 4+ ABORh (test code = ABORh) O POS POC [id number] 08:14:49 Test Item Value Reference Range Interpretation Comments Glucose POC (test 105 mg/dL 70-115 If you con underwriting sales representative your code = Glucose POC) patient critically ill, the Maame-Accu Check Infrom II meter should not be used for Glucose determination. Draw a venous Glucose and send to the main Lab for analysis.
== END 2021-01-14 15:11 | disposition left against medical advice (07) ==
LOC: ER 11:44
DX: Z02.9 Encounter for administrative examinations, unspecified (principal)

== ENCOUNTER 2021-03-18 10:49 | Day surgery (SDC) | payer OTHER ==
[2021-03-18] MEDS ORDERED: Ringers Lactate 1,000 ML IV ONE (11:23)
[2021-03-18] MEDS ORDERED: BUPIVACAINE 0.25% PF 10 ML VIAL ONE (14:25)
[2021-03-18] MEDS: CEFAZOLIN 2 GM IN 0.9% NACL 2 GM/100 ML BAG ONE ×2 (14:35→14:46)
[2021-03-18] MEDS ORDERED: FENTANYL CITR 100 MCG/2 ML ONE (14:58)
[2021-03-18] MEDS ORDERED: SODIUM HYPOCHLORITE 0.25% 473 ML ONE (14:58)
[2021-03-18] MEDS ORDERED: MIDAZOLAM HCL 2 MG/2 ML INJ ONE (14:58)
[2021-03-18] MEDS ORDERED: LIDOCAINE 2% MPF 5 ML VIAL ONE (14:58)
[2021-03-18] MEDS ORDERED: propofoL 200 MG/20 ML VIAL IV ONE ×2 (14:58→16:02)
[2021-03-18] MEDS ORDERED: ROCURONIUM 50 MG/5 ML VIAL IV ONE (14:59)
--- NOTE | 2021-03-18 15:47 | P.OP ---
Preoperative diagnosis: Hidrainitis Suppuritiva of LEFT Groin and LEFT Chest Postoperative diagnosis: Hidrainitis Suppuritiva of LEFT Groin and LEFT Chest Primary procedure: Wide local excision of Hidrainitis Suppuritiva of LEFT Groin and LEFT Chest Anesthesia: GETA Local Estimated blood loss: <20cc Specimen: debridement tissue, cultures Findings: Hidrainitis Suppuritiva of LEFT Groin and LEFT Chest with abscess Complications: None Transferred to: Recovery Room Condition: Good
[2021-03-18] MEDS ORDERED: GLYCOPYRROLATE 0.2 MG/ML SYR ONE (16:04)
[2021-03-18] MEDS ORDERED: ONDANSETRON 4 MG/2 ML VIAL ONE (16:04)
[2021-03-18] MEDS ORDERED: NEOSTIGMINE 1 MG/ML -5 ML ONE (16:07)
[2021-03-18] MEDS ORDERED: KETOROLAC 30 MG/ML INJ ONE (16:08)
[2021-03-18] MEDS: HYDROMORPHONE HCL 1 MG/ML INJ ONE ×2 (16:28→16:39)
[2021-03-18] MEDS ORDERED: ATROPINE SULF 1 MG/10 ML SYR IV ONE (16:31)
[2021-03-18 17:00] VITALS: BP 116/57; TEMP 97.8; O2SAT 97
--- NOTE | 2021-03-19 02:46 | OP ---
Date of Procedure: 03/18/2021 Surgeon: Lawrence Contreras MD, Preoperative Diagnosis: Hidradenitis suppurativa with abscess of left groin and left chest. Postoperative Diagnosis: Hidradenitis suppurativa with abscess of left groin and left chest. Procedure Performed: Wide local excision of hidradenitis suppurativa with abscess of left groin and left chest. Anesthesia: General endotracheal plus local with 0.25% Marcaine without epinephrine. Estimated Blood Loss: Less than 20 cc. Specimen: Debridement of tissue and culture sent for aerobic and anaerobic speciation. Findings: Hidradenitis suppurativa of the left groin, left chest area with abscess. Left groin area measured approximately 5.5 cm x 6 cm down into subcutaneous fat. Left chest incision was approximat tru 8 cm x 7 cm down into subcutaneous fat as well. Complications: None. Disposition: The patient was transferred to recovery room in good condition. Procedure In Detail: After informed consent was obtained, the patient was brought to the operating r oom, prepped and draped in the usual sterile fashion after adequate anesthesia was achieved. I made a curvilinear incision down through skin and the adipose tissue on the inner thigh area. I dissected down through subcutaneous tissues to encounter a hidradenitis suppurativa area with small abscess. Cultures were sent for aerobic and anaerobic speciation. At this time, the tissue was debrided with electrocautery and sent off for pathologic examination. Hemostasis was achieved with electrocautery and the wound was then closed using interrupted 2-0 nylon sutures after appropriately irrigating and cleansing the wound. A sterile dressing was placed over top. I turned my attention to the left lowe r chest area and found hidradenitis suppurativa of this area with abscess. Abscess material was eman ating from this wound. I cultured this for both aerobic and anaerobic speciation. I made a semicirc ular incision around this area as well down to subcutaneous tissue with a 15 blade. I then circumfer entially dissected down using electrocautery to remove the abscess cavity and infected tissues consis tent with hidradenitis suppurativa with abscess. I sent this off for debridement tissue as well. Th e area was copiously irrigated. Hemostasis was achieved with electrocautery. The wound was then sydney sed with interrupted 2-0 nylon sutures and sterile dressing was placed over top. The patient tolerat ed the procedure well without any complications and transferred to PACU in good condition. All count s were correct at the end of the case. RADHA/HEIDI Voice ID: [id number] Report ID: [id number]
== END 2021-03-18 17:28 | disposition home or self-care (01) ==
LOC: OR 10:49
PROVIDERS: ATTEND Surgery
PROC: 0JB60ZZ Excision of Chest Subcutaneous Tissue and Fascia, Open Approach (ICD-10-PCS; 2021-03-18)
PROC: 0JBC0ZZ Excision of Pelvic Region Subcutaneous Tissue and Fascia, Open Approach (ICD-10-PCS; principal; 2021-03-18 12:30)
DX: L73.2 Hidradenitis suppurativa (principal); Z20.822 Contact with and (suspected) exposure to COVID-19
CPT/HCPCS: 87070 ×2; 87205 ×2; 88304; 87075 ×2; 87077; 87186; 11462; 11406; U0003; J2704 ×2; J2250; J3010; J1170; J2710; J0690; J7120; J2405; 88305

== ENCOUNTER 2021-04-29 10:55 | Day surgery (SDC) | payer OTHER ==
[2021-04-29] MEDS: Ringers Lactate 1,000 ML IV ONE ×2 (11:30→13:12)
[2021-04-29] MEDS: BUPIVACA 0.5%/EPI 0.0005%/PF 30 ML VIAL ONE ×2 (12:49→13:56)
[2021-04-29] MEDS ORDERED: GLYCOPYRROLATE 0.2 MG/ML SYR ONE ×2 (12:57→14:09)
[2021-04-29] MEDS ORDERED: FENTANYL CITR 100 MCG/2 ML ONE (12:57)
[2021-04-29] MEDS ORDERED: MIDAZOLAM HCL 2 MG/2 ML INJ ONE (12:57)
[2021-04-29] MEDS ORDERED: propofoL 200 MG/20 ML VIAL IV ONE ×2 (12:58→13:56)
[2021-04-29] MEDS ORDERED: LIDOCAINE 1% MPF 2 ML AMPULE ONE (12:58)
[2021-04-29] MEDS ORDERED: ONDANSETRON 4 MG/2 ML VIAL ONE (13:00)
[2021-04-29] MEDS ORDERED: KETOROLAC 30 MG/ML INJ ONE (13:00)
[2021-04-29] MEDS ORDERED: dexAMETHasone 10 MG/ML VIAL ONE (13:00)
[2021-04-29] MEDS ORDERED: ROCURONIUM 50 MG/5 ML VIAL IV ONE ×3 (13:05→13:07)
[2021-04-29] MEDS: CEFAZOLIN/SWI 2gm 2 GM/20 ML SYR ONE ×2 (13:20→13:27)
[2021-04-29] MEDS ORDERED: SODIUM HYPOCHLORITE 0.25% 473 ML ONE (13:56)
[2021-04-29] MEDS ORDERED: NEOSTIGMINE 1 MG/ML -5 ML ONE (14:26)
--- NOTE | 2021-04-29 14:28 | P.OP ---
Preoperative diagnosis: Chest and Axillary Skin Abscesses Postoperative diagnosis: Chest and Axillary Skin Abscesses Primary procedure: Wide Local Excision of Chest and Axillary Skin Abscesses Anesthesia: GETA + Local Estimated blood loss: <75 cc Specimen: Chest and Axillary Skin and subcutanous tissue, cultures Findings: 16 x 8 x 4 cm (chest), 8x4x3 cm (axillary) Complications: None Transferred to: Recovery Room Condition: Good
[2021-04-29] MEDS: HYDROMORPHONE HCL 1 MG/ML INJ ONE ×9 (14:43→15:08)
[2021-04-29 16:59] VITALS: BP 122/62; TEMP 97.7; O2SAT 98
--- NOTE | 2021-04-30 02:31 | OP ---
Date of Procedure: 04/29/2021 Surgeon: Lawrence Contreras MD, Preoperative Diagnosis: Chest and axillary skin abscesses. Postoperative Diagnosis: Chest and axillary skin abscesses. Procedure Performed: Wide local excision of chest and axillary skin abscesses. Anesthesia: General endotracheal plus local with 0.5% Marcaine. Estimated Blood Loss: Less than 75 cc. Specimen: 1.Chest and axillary skin and subcutaneous tissue. 2.Cultures. Findings: Wound consistent with hidradenitis with abscess, chest wound approximately 16 cm x 8 cm x 4 cm, axillary wound approximately 8 cm x 4 cm x 3 cm. Complications: None. Patient transferred to recovery room in good condition. Procedure In Detail: After informed consent was obtained, the patient was brought to the operating r oom, prepped and draped in usual sterile fashion. After adequate anesthesia achieved, an elliptical incision was made around the chest wound on the right chest wall down through the subcutaneous tissue s. Electrocautery was used to dissect circumferentially down around an abscess which was encountered almost immediately in addition to abnormal tissue consistent with infected hidradenitis suppurativa. This tissue was taken down through the above-stated measure and sent off for pathologic examination . Additional cultures both aerobic and anaerobic speciation. The area had achieved hemostasis with fulguration with electrocautery with good hemostasis at this point. The area was copiously irrigated multiple times until completely clear. No additional hemostatic measures required. The wound was t hen packed with Dakin soaked Kerlix and sterile dressing placed over top. Attention was then turned to the second wound which was in the axillary region. This was smaller approximately 8 cm x 4 cm. I circumferentially dissected this down through subcutaneous tissue with a 10 blade, also consistent w ith hidradenitis abscess. After dissected down with the 10 blade, I dissected circumferentially with the electrocautery down to the subcutaneous tissues, removed the tissue, sent off for pathologic exa mination. Abscess was encountered here as well which was removed in its entirety. The wound was the n fulgurated to achieve hemostasis with electrocautery. After this, it was copiously irrigated with multiple times till complete clear. No additional hemostatic measures required. The wound was then packed with Dakin soaked Kerlix and sterile dressing placed over top. The patient tolerated the proce dure well without evidence of complication and transferred to PACU in good condition. All counts wer e correct at the end of this case. TK/CASIL Voice ID: [id number] Report ID: [id number]
== END 2021-04-29 16:27 | disposition home or self-care (01) ==
LOC: OR 10:55
PROVIDERS: ATTEND Surgery
PROC: 0JB60ZZ Excision of Chest Subcutaneous Tissue and Fascia, Open Approach (ICD-10-PCS; 2021-04-29)
PROC: 0JBD0ZZ Excision of Right Upper Arm Subcutaneous Tissue and Fascia, Open Approach (ICD-10-PCS; principal; 2021-04-29 12:00)
DX: L73.2 Hidradenitis suppurativa (principal); L02.213 Cutaneous abscess of chest wall; L02.411 Cutaneous abscess of right axilla; Z20.822 Contact with and (suspected) exposure to COVID-19
CPT/HCPCS: 87070; 87205; 88304; 87075; 11450; 11406; U0003; J2704 ×2; J2250; J3010; J1100; J1170 ×3; J2710; J0690; J7120; J2405

== ENCOUNTER 2021-05-06 02:54 | Emergency (ER) | payer OTHER ==
--- OUTSIDE RECORDS SUMMARY | 2021-05-06 03:00 | XMS REPORT | Continuity of Care Document ---
:1985 Author Organization [facility] t Address [facility] [place] [address] Care Team Providers Name Role Phone Domenico [...] t [facility] Hidradenit Hidradenit Problem Active [facility] is is [facility] suppurativ suppurativ Me [facility] Morbid Morbid Problem Active [facility] obesity obesity [facility] Depression Depression Problem Active [facility] screening screening [facility] Anxiety Anxiety Problem Active [facility] Abscess of Abscess of Problem Active [facility] chest chest [facility] Right Right Problem Active [facility] inguinal inguinal [facility] Status Status Problem Active [facility] post fall post fall [facility] Pain in Pain in Problem Active [facility] right arm right arm [facility] Pain in Pain in Problem Active [facility] left arm left arm [facility] Pain in Pain in Problem Active [facility] right knee right knee [facility] Pain in Pain in Problem Active [facility] left knee left knee [facility] CPAP CPAP Problem Active [facility] (continuou (continuou [facility] - s positive s positive Me moria airway airway l pressure) pressure) 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 GABE GABE Problem Active [facility] (obstructi (obstructi [facility] - ve sleep ve sleep Memori a apnea) apnea) l [facility] ent [facility] BMI 70 and BMI 70 and Problem Active [facility] over, over, [facility] adult adult [facility] l [facility] ent [facility] Tooth pain Tooth pain Diagnosis Active [facility] Encounter Encounter Diagnosis Active [facility] for for [facility] general general [facility] adult adult l medical medical [facility] examinatio examinatio en t n without n without Clin ics abnormal abnormal findings findings Allergies, Adverse Reactions, Alerts Allergy Allergy Status Severity Reaction(s) Onset Inactive Treating Comm ents Source Name Type Date Date Clinician Ciproflo Adverse Active Rash [facility] xacin Reaction [facility] Medications Ordered Filled Start Stop Current Ordering Indication Dosage Frequency Signature Comments Components Source Medication Medication Date Date Medication? Clinician (SIG) Name Name Metformin Metformin Yes Josey [address] [facility] HCl HCl Millender with a [facility] - meal [facility] Spironolact Spironolact Yes Josey [address] [facility] one one Millender [facility] Trazodone Trazodone Yes Josey [address] [facility] [address] HCl HCl Millender at bedtime [facility] - as needed [facility] Topiramate Topiramate Yes Josey [address] [facility] Millender [facility] Acetaminoph Acetaminoph Yes Josey (Schedule [facility] en-Codeine en-Codeine Millender III Drug) [facility] - #3 #3 [facility] Procedures This patient has no known procedures. Encounters Start End Encounter Admission Attending Care Care Encounter Source Date/Time Date/Time Type Type Clinicians Facility Department ID 2020-04-19 2020-04-21 Inpatient 3 Christy Acuña [facility] MED [id number] [facility] 05:19:00 15:41:00 Christy Acuña [facility] 2020-04-19 2020-04-19 Inpatient 3 Christy Acuña [facility] MED [id number] St. 05:19:00 05:19:00 Christy Acuña -20 [id number] [facility] 2020-02-13 2020-02-13 Outpatient 3 Christy Acuña [facility] ENDO [id number] St. 08:29:00 23:59:00 Christy Acuña [facility] 2020-02-13 2020-02-13 Outpatient 3 Christy Acuña [facility] ENDO [id number] St. 08:29:00 08:29:00 Christy Acuña -20 [id number] [facility] 2019-12-02 2019-12-02 [facility] [id number] [facility] [address] 08[facility]00[facility] 08[facility]00[facility] [facility] Outpat[facility] ent Clinics 2019-10-11 2019-10-11 [facility] [id number] [facility] [address] 22:02:00 22:02:[address] [facility] 2019-10-07 2019-10-07 [facility] [id number] [address] 15:00:00 15:00:[address] [facility] Outpati ent Clinics 2019-05-26 2019-05-26 [facility] [id number] [address] 09[facility]45:00 09:45:[address] [facility] 2019-02-24 2019-02-24 [facility] [id number] 09:00[facility]00 09:00:[address] [facility] Results Test Description Test Time Test Comments Results Result Comments Source Retype 2020-04-20 06:51:50 Test Item Value Reference Range Interpretation Comme nts Methodology (test code = Methodology) Test-Tube(TT) Anti-A (test code = Anti-A) 0 Anti-B (test code = Anti-B) 0 Anti-AB (test code = Anti-AB) NT Anti-D (test code = Anti-D) 4+ ABORh Retype (test code = ABORh Retype) O POS [id number] 06:37:50 Test Item Value Reference Range Interpretation [...] (test code = Lipemia) 0 g/dL 1-2 [id number] 06:37:50 Test Item Value Reference Range Interpretation [...] (test code = 0 g/dL 1-2 Lipemia) [id number] 06:37:50 Test Item Value Reference Range Interpretation [...] ag e have not been validated by [facility] MDRD study and should be interpreted [...] ag e have not been validated by [facility] MDRD study and should be interpreted [...] (test code = 0 g/dL 1-2 Lipemia) [id number] 06:18:55 Test Item Value Reference Range Interpretation Comments IG (test code = IG) 0.3 % 0.0-5.0 IG Abs (test code = IG Abs) 0 x10 N [id number] 06:18:54 Test Item Value Reference Range Interpretation [...] = 0.00 x10 N NRBC Abs) Auto [id number] 06:18:54 Test Item Value Reference Range Interpretation Comments Neutro Auto (test code = Neutro 76.4 % 36.0-70.0 H Auto) Lymph Auto (test code = Lymph Auto) 15.2 % 12.0-44.0 Guthrie Auto (test code = Guthrie Auto) 7.9 % 0.0-11.0 Eos, Auto (test code = Eos, Auto) 0.0 % 0.0-7.0 Basophil Auto (test code = Basophil 0.2 % 0.0-2.0 Auto) Neutro Absolute (test code = Neutro 10.0 x10 1.6-7.4 H Absolute) Lymph Absolute (test code = Lymph 1.99 x10 .50-4.60 Absolute) Guthrie Absolute (test code = Guthrie 1.04 x10 .00-1.20 Absolute) Eos Absolute (test code = Eos 0.00 x10 0.00-0.74 Absolute) Baso Absolute (test code = Baso 0.03 x10 0.00-0.21 Absolute) POC [id number] 12:44:17 Test Item Value Reference Range Interpretation Comments Glucose POC (test 117 mg/dL 70-115 H Notify RN or MDIf you code = Glucose POC) consider your patient critically ill, the Maame-Accu Chec k Infrom II meter should not be used for Glucos e determination. Draw a venous Glucose and send to the main Lab for analysis. POC [id number] 11:43:56 Test Item Value Reference Range Interpretation Comments Glucose POC (test 122 mg/dL 70-115 H If you con flooring professional your code = Glucose POC) patient critically ill, the Maame-Accu Check Infrom II meter should not be used for Glucose determination. Draw a venous Glucose and send to the main Lab for analysis. [id number] 10:55:40 Test Item Value Reference Range Interpretation Comments Methodology (test code = Test-Tube(TT) Methodology) Anti-A (test code = Anti-A) 0 Anti-B (test code = Anti-B) 0 Anti-AB (test code = Anti-AB) NT Anti-D (test code = Anti-D) 4+ ABORh Retype (test code = ABORh O POS Retype) [facility] [id number] 08:59:05 Test Item Value Reference Range Interpretation [...] code Negative ABSC = Antibody Screen (3C)) [id number] 08:33:14 Test Item Value Reference Range Interpretation Comments Previous History (test code = No Prev History Previous History) BBID (test code = BBID) [id number] Methodology (test code = Test-Tube(TT) Methodology) Anti-A (test code = Anti-A) 0 Anti-B (test code = Anti-B) 0 Anti-D (test code = Anti-D) 4+ DCon (test code = DCon) NT A1 (test code = A1) 4+ B cells (test code = B cells) 4+ ABORh (test code = ABORh) O POS POC [id number] 08:14:49 Test Item Value Reference Range Interpretation Comments Glucose POC (test 105 mg/dL 70-115 If you con flooring professional your code = Glucose POC) patient critically ill, the Maame-Accu Check Infrom II meter should not be used for Glucose determination. Draw a venous Glucose and send to the main Lab for analysis.
[2021-05-06 03:59] LABS: Absolute Lymphocytes (CBC) 2.4 K/uL (0.7-4.9); Basophils % 1.2 % (0-1.3); Hematocrit 35.8 % (39.6-49.0); RBC Red Blood Cell Count 4.95 M/uL (4.33-5.43)
[2021-05-06 06:14] LABS: Protime INR 1.15
[2021-05-06 06:27] LABS: ALT/SGPT 13 U/L (12-78); AST/SGOT 8 U/L (15-37); Albumin 2.6 g/dL (3.4-5.0); Alkaline Phosphatase 68 U/L (45-117); BUN Blood Urea Nitrogen 14 mg/dL (7-18); Bicarbonate 25 mmol/L (21-32); Bilirubin Direct < 0.1 mg/dL (0-0.2); Bilirubin Total 0.3 mg/dL (0.2-1.0); Glucose Level 103 mg/dL (74-106); Potassium 3.9 mmol/L (3.5-5.1); Protein, Total 7.3 g/dL (6.4-8.2); Sodium Level 145 mmol/L (136-145)
--- NOTE | 2021-05-06 06:36 | EDPHYS ---
Physician Documentation [facility] Name: Leland Pryor Age: 35 yrs Sex: Male : 1985 Arrival Date: 05/06/2021 Time: 02:58 Bed 5 Private MD: ED Physician Peterson Roque HPI: 05/06 03:11 This 35 yrs old Male presents to ER via EMS with complaints of Bleeding at mh7 surgical wound site. 03:11 Patient presents to ED for recheck of: Surgical wound. The affected area is on the mh7 Right axilla. Previous treatment: The patient was initially treated on April 29, 2021, the care was rendered at [facility], Treatment type: The patient's original treatment included. Progress: The patient reports Bleeding. Patient states that he started having bleeding at his surgical site in the right axilla this morning. He states that he had surgery a week ago and has been doing fine until this morning. Denies any fever, chest pain, shortness of breath, nausea, vomiting, redness or swelling at site.. Historical: - Allergies: 03:03 Cipro; bb - Home Meds: 03:09 gabapentin oral [Active]; bb - PMHx: 03:09 hidradenitis suppurativa; bb - PSHx: 03:09 multiple I\T\D; bb - Immunization history:: Adult Immunizations up to date, Client reports receiving the 1st dose of the Covid vaccine. - Social history:: Smoking status: Patient reports the use of cigarette tobacco products, smokes one-half pack cigarettes per day, Patient/guardian denies using alcohol. ROS: 03:11 Constitutional: Negative for fever, chills, and weight loss, Eyes: Negative for injury, mh7 pain, redness, and discharge, ENT: Negative for injury, pain, and discharge, Neck: Negative for injury, pain, and swelling, Cardiovascular: Negative for chest pain, palpitations, and edema, Respiratory: Negative for shortness of breath, cough, wheezing, and pleuritic chest pain, Abdomen/GI: Negative for abdominal pain, nausea, vomiting, diarrhea, and constipation, Back: Negative for injury and pain, : Negative for injury, bleeding, discharge, and swelling, MS/Extremity: Negative for injury and deformity, Neuro: Negative for headache, weakness, numbness, tingling, and seizure, Psych: Negative for depression, anxiety, suicide ideation, homicidal ideation, and hallucinations, Allergy/Immunology: Negative for hives, rash, and allergies, Endocrine: Negative for neck swelling, polydipsia, polyuria, polyphagia, and marked weight changes, Hematologic/Lymphatic: Negative for swollen nodes, abnormal bleeding, and unusual bruising. Exam: 03:11 Constitutional: This is a well developed, well nourished patient who is awake, alert, mh7 and in no acute distress. Head/Face: Normocephalic, atraumatic. Eyes: Pupils equal round and reactive to light, extra-ocular motions intact. Lids and lashes normal. Conjunctiva and sclera are non-icteric and not injected. Cornea within normal limits. Periorbital areas with no swelling, redness, or edema. Neck: Trachea midline, no thyromegaly or masses palpated, and no cervical lymphadenopathy. Supple, full range of motion without nuchal rigidity, or vertebral point tenderness. No Meningismus. Cardiovascular: Regular rate and rhythm with a normal S1 and S2. No gallops, murmurs, or rubs. Normal PMI, no JVD. No pulse deficits. Respiratory: Lungs have equal breath sounds bilaterally, clear to auscultation and percussion. No rales, rhonchi or wheezes noted. No increased work of breathing, no retractions or nasal flaring. Abdomen/GI: Soft, non-tender, with normal bowel sounds. No distension or tympany. No guarding or rebound. No evidence of tenderness throughout. Back: No spinal tenderness. No costovertebral tenderness. Full range of motion. Neuro: Awake and alert, GCS 15, oriented to person, place, time, and situation. Cranial nerves II-XII grossly intact. Motor strength 5/5 in all extremities. Sensory grossly intact. Cerebellar exam normal. Normal gait. Psych: Awake, alert, with orientation to person, place and time. Behavior, mood, and affect are within normal limits. 03:11 Chest/axilla: Inspection: normal, Palpation: is normal, Axilla: Clots and mild bleeding at the right axillary surgical site, Lymph nodes: lymphadenopathy is not appreciated. 03:11 Musculoskeletal/extremity: Extremities: noted in the right axilla: Clotted blood and mild bleeding at wound site, ROM: intact in all extremities, Circulation is intact in all extremities. Sensation intact. Compartment Syndrome exam of affected extremity: is normal. no pain, no numbness, no tingling, no sensation deficit, no palor, no weak pulses, Joints: All joints appear normal with full range of motion. 03:11 Skin: Wound recheck: Clots and mild bleeding at right axillary wound site. No erythema, swelling, tenderness.. Vital Signs: 03:01 BP 131 / 76; Pulse 86; Resp 16 S; Temp 98.2(O); Pulse Ox 98% on R/A; Weight 147.42 kg bb (R); Height 5 ft. 7 in. (170.18 cm) (R); Pain 2/10; 03:25 BP 116 / 66; Pulse 72; Resp 18; Pulse Ox 99% on R/A; Pain 0/10; df1 05:05 BP 112 / 65; Pulse 78; Pulse Ox 100% on R/A; tw5 03:01 Body Mass Index 50.90 (147.42 kg, 170.18 cm) MDM: 06:33 Differential diagnosis: cellulitis, Postoperative bleeding, infection. Data reviewed: [facility] vital signs, nurses notes, old medical records, lab test result(s), CBC, electrolytes. Data interpreted: Pulse oximetry: on room air is 100 %. Interpretation: normal. Counseling: I had a detailed discussion with the patient and/or guardian regarding: the historical points, exam findings, and any diagnostic results supporting the discharge/admit diagnosis, lab results, the need for outpatient follow up, a general surgeon, to return to the emergency department if symptoms worsen or persist or if there are any questions or concerns that arise at home. Response to treatment: the patient's symptoms have resolved after treatment, the patient's blood pressure is in an acceptable range, mental status has returned to baseline, the patient no longer shows bradycardia, the patient is not short of breath, the patient is not tachycardic, the patient's pain is gone, the patient's temperature has normalized. 06:36 Patient medically screened. [facility] 05/06 03:21 Order name: CBC with Diff; Complete Time: 04:07 [facility] 05/06 03:21 Order name: Basic Metabolic Panel; Complete Time: 06:28 [facility] 05/06 03:21 Order name: Saline Lock; Complete Time: 03:51 [facility] 05/06 03:21 Order name: LFT's; Complete Time: 06:28 [facility] 05/06 03:21 Order name: Protime (+inr); Complete Time: 06:23 [facility] 05/06 03:21 Order name: Ptt, Activated; Complete Time: 06:23 [facility] Administered Medications: No medications were administered Disposition Summary: 05/06/21 06:36 Discharge Ordered Location: Home [facility] Problem: an ongoing problem [facility] Symptoms: have improved [facility] Condition: Stable [facility] Diagnosis - Post surgical wound bleeding, resolved [facility] Followup: [facility] - With: Private Physician - When: 1 - 2 days - Reason: Wound Recheck, Worsening of condition, Recheck today's complaints, Continuance of care, Re-evaluation by your physician Discharge Instructions: - Discharge Summary Sheet [facility] - Sutured Wound Care, [id number] [facility] Forms: - Medication Reconciliation Form [facility] - Thank You Letter [facility] - Antibiotic Education [facility] - Prescription Opioid Use [facility] Signatures: Dispatcher [employer] [place] Cruz, MOHAN RN Peterson Cueto MD MD [facility] Corrections: (The following items were deleted from the chart) 03:04 03:03 PMHx: abscess; charito mcneill 03:12 03:09 PMHx: Diabetes - NIDDM; charito mcneill
--- NOTE | 2021-05-06 06:36 | ER ---
Nurse's Notes [facility] Name: Leland Pryor Age: 35 yrs Sex: Male : 1985 Arrival Date: 05/06/2021 Time: 02:58 Bed 5 Private MD: Diagnosis: Post surgical wound bleeding, resolved Presentation: 05/06 03:01 Chief complaint: EMS states: they were toned out for report of pt bleeding from bb surgical site. Pt had I\T\D last week to right axilla area by Dr Contreras wound was packed and left open to drain but started bleeding tonight. Coronavirus screen: At this time, the client does not indicate any symptoms associated with coronavirus-19. Ebola Screen: No symptoms or risks identified at this time. Initial Sepsis Screen: Does the patient meet any 2 criteria? No. Patient's initial sepsis screen is negative. Does the patient have a suspected source of infection? No. Patient's initial sepsis screen is negative. Risk Assessment: Do you want to hurt yourself or someone else? Patient reports no desire to harm self or others. Onset of symptoms was May 06, 2021. 03:01 Method Of Arrival: EMS: [facility] 03:01 Acuity: JOSY 3 bb 06:48 Note No bleeding noted from dressing placed. Pt to have wound care in house this df1 morning. Pt denies pain. Dressing reinforced. Triage Assessment: 03:23 General: Appears in no apparent distress. Behavior is calm, cooperative. Pain: Denies df1 pain. EENT: No deficits noted. Neuro: No deficits noted. Cardiovascular: No deficits noted. Respiratory: No deficits noted. GI: No deficits noted. : No deficits noted. Derm: Wound noted right axilla. Historical: - Allergies: 03:03 Cipro; bb - Home Meds: 03:09 gabapentin oral [Active]; bb - PMHx: 03:09 hidradenitis suppurativa; bb - PSHx: 03:09 multiple I\T\D; bb - Immunization history:: Adult Immunizations up to date, Client reports receiving the 1st dose of the Covid vaccine. - Social history:: Smoking status: Patient reports the use of cigarette tobacco products, smokes one-half pack cigarettes per day, Patient/guardian denies using alcohol. Screenin:18 Abuse screen: Denies threats or abuse. Nutritional screening: No deficits noted. df1 Tuberculosis screening: No symptoms or risk factors identified. Fall Risk None identified. Assessment: 03:51 Pain: Denies pain. Derm: surgical wound bleeding. Hemorrhage controlled. tw5 Vital Signs: 03:01 BP 131 / 76; Pulse 86; Resp 16 S; Temp 98.2(O); Pulse Ox 98% on R/A; Weight 147.42 kg bb (R); Height 5 ft. 7 in. (170.18 cm) (R); Pain 2/10; 03:25 BP 116 / 66; Pulse 72; Resp 18; Pulse Ox 99% on R/A; Pain 0/10; df1 05:05 BP 112 / 65; Pulse 78; Pulse Ox 100% on R/A; tw5 03:01 Body Mass Index 50.90 (147.42 kg, 170.18 cm) ED Course: 02:58 Patient arrived in ED. mw2 03:03 Triage completed. bb 03:03 Arm band placed on Patient placed in an exam room, on a stretcher, on pulse oximetry. bb 03:08 Peterson Roque MD is Attending Physician. 7 03:15 Martha London is Primary Nurse. tw5 03:15 Wound care: to packed surgical wound located on right axilla was irrigated with normal tw5 saline, dressed with 4X4s, ABD pads, Patient tolerated well. 03:18 Patient has correct armband on for positive identification. Placed in gown. Bed in low df1 position. Call light in reach. Side rails up X 1. Adult w/ patient. Pulse ox on. NIBP on. 03:18 Pt presents with 10 x 10 cm wound from I\T\D on 04/22/21 to right arm pit. moderate df1 amount of bleeding noted. Packing placed OCCUPATIONAL HEALTH NURSE saturated with blood. Wound irrigated with normal saline. Wet to dry dressing in place and reinforced with preethi wraps around dressing. Pt tolerated well. Pt denies pain, N, V, D, fever. 03:18 Inserted saline lock: 20 gauge in left antecubital area, using aseptic technique. Blood tw5 collected. 03:51 Protime (+inr) Sent. tw5 03:51 Ptt, Activated Sent. tw5 03:51 LFT's Sent. tw 03:51 CBC with Diff Sent. tw 03:51 Basic Metabolic Panel Sent. tw5 05:05 Door closed. Noise minimized. Lights dimmed. Moved to private room. Warm blanket given. tw5 Verbal reassurance given. 05:50 Lab(s) recollected, by me, sent to lab. 05:52 Basic Metabolic Panel Sent. tw 05:52 LFT's Sent. tw 05:52 Ptt, Activated Sent. tw 05:52 Protime (+inr) Sent. tw5 06:49 Patient did not have IV access during this emergency room visit. df1 Administered Medications: No medications were administered Outcome: 06:36 Discharge ordered by . [facility] 06:48 Discharged to Home w/ Home Health df1 06:48 Condition: good 06:48 Discharge instructions given to patient, Instructed on discharge instructions, follow up and referral plans. Demonstrated understanding of instructions, follow-up care. 06:49 Patient left the ED. df1 Signatures: [place] Crystal RN RN Kavita Addison mw2 Peterson Roque MD MD [facility] Aisha Escamilla df1 Martha London tw5 Corrections: (The following items were deleted from the chart) 03:04 03:03 PMHx: abscess; charito 03:08 03:01 Chief complaint: EMS states: they were toned out for report of pt bleeding from bb surgical site bb 03:12 03:09 PMHx: Diabetes - NIDDM; bb bb
[2021-05-06 06:55] VITALS: TEMP 98.2
[2021-05-06 06:58] VITALS: BP 112/65; O2SAT 100
== END 2021-05-06 06:49 | disposition home or self-care (01) ==
LOC: ER 02:54
DX: L76.22 Postprocedural hemorrhage of skin and subcutaneous tissue following other procedure (principal); F17.210 Nicotine dependence, cigarettes, uncomplicated; Z88.1 Allergy status to other antibiotic agents
CPT/HCPCS: 36415; 80048; 80076; 85025; 85610; 85730; 99284

== ENCOUNTER 2021-08-15 09:20 | Day surgery (SDC) | payer OTHER ==
[2021-08-15 09:56] LABS: Absolute Lymphocytes (CBC) 1.7 K/uL (0.7-4.9); Hematocrit 36.4 % (39.6-49.0); Lymphocytes % 27.5 % (15.3-44.8); MPV 8.7 fL (7.6-11.3); RBC Red Blood Cell Count 5.45 M/uL (4.33-5.43)
[2021-08-15] MEDS ORDERED: CEFAZOLIN/SWI 2gm 2 GM/20 ML SYR ONE (10:01)
[2021-08-15] MEDS ORDERED: Ringers Lactate 1,000 ML IV ONE (10:01)
[2021-08-15 10:04] LABS: BUN Blood Urea Nitrogen 10 mg/dL (7-18); Bicarbonate 27 mmol/L (21-32); Glucose Level 88 mg/dL (74-106); Sodium Level 141 mmol/L (136-145)
[2021-08-15 10:08] LABS: Potassium 4.2 mmol/L (3.5-5.1)
[2021-08-15] MEDS ORDERED: BUPIVACAINE 0.25% PF 10 ML VIAL ONE (10:59)
[2021-08-15] MEDS ORDERED: FENTANYL CITR 100 MCG/2 ML ONE (11:08)
[2021-08-15] MEDS ORDERED: LIDOCAINE 1% MPF 5 ML VIAL ONE (11:08)
[2021-08-15] MEDS ORDERED: propofoL 200 MG/20 ML VIAL IV ONE (11:08)
[2021-08-15] MEDS ORDERED: dexAMETHasone 10 MG/ML VIAL ONE (11:26)
[2021-08-15] MEDS ORDERED: ONDANSETRON 4 MG/2 ML VIAL ONE (11:45)
[2021-08-15] MEDS ORDERED: KETOROLAC 30 MG/ML INJ ONE (11:45)
--- NOTE | 2021-08-15 11:46 | P.OP ---
Preoperative diagnosis: LEFT Axillary Hidradenitis Postoperative diagnosis: LEFT Axillary Hidradenitis Primary procedure: Wide local excision of LEFT Axillary Hidradenitis Anesthesia: GETA + Local Estimated blood loss: <10cc Specimen: LEFT Axillary Hidradenitis Findings: 15cm x 9 cm LEFT Axillary Hidradenitis Complications: None Transferred to: Recovery Room Condition: Good
[2021-08-15 12:11] VITALS: O2SAT 100
[2021-08-15] MEDS ORDERED: HYDROCODONE/APAP 10/325 TAB PO ONE (12:13)
[2021-08-15 12:21] LABS: Anisocytosis 1+; Blood Morphology Comment NOTED (NOT SEEN); Hypochromasia 1+; Platelet Estimate ADEQ; White Blood Cell Scan OK (OK)
[2021-08-15 12:22] LABS: Poikilocytosis 1+
[2021-08-15 12:45] VITALS: BP 99/49; TEMP 97
--- NOTE | 2021-08-15 13:57 | OP ---
Date of Procedure: 08/15/2021 Surgeon: Lawrence Contreras MD, Preoperative Diagnosis: Left axillary hidradenitis. Postoperative Diagnosis: Left axillary hidradenitis. Procedure Performed: Wide local excision of left axillary hidradenitis. Anesthesia: General endotracheal plus local with 0.25% Marcaine. Estimated Blood Loss: Less than 10 mL. Specimen: Left axillary hidradenitis. Findings: A 15 cm x 9 cm left axillary hidradenitis. Complications: None. Disposition: The patient was transferred to the recovery room in good condition. Procedure In Detail: After informed consent was obtained, the patient was brought to the operating r oom, prepped and draped in the usual sterile fashion after adequate anesthesia was achieved. The are a of the left axillary hidradenitis with obvious drainage was incised circumferentially down for appr oximately 9 cm x 15 cm area. Ellipse of skin was removed at this point using electrocautery down to subcutaneous fat. All abnormal tissue was removed at this point. Electrocautery was used to achieve hemostasis. The area was then irrigated and packed with sterile dressing and Adaptic dry, and a roel rile dressing placed over top. The patient tolerated the procedure well without evidence of complication and transferred to PACU in good condition. All counts were cor rect at the end of the case. RADHA/HEIDI Voice ID: [id number] Report ID: [id number]
[2021-08-16] MEDS ORDERED: CEFAZOLIN/SWI 2gm 2 GM/20 ML SYR IVP SCH (07:30)
== END 2021-08-15 13:20 | disposition home or self-care (01) ==
LOC: OR 09:20
PROVIDERS: ATTEND Surgery
PROC: 0JBF0ZZ Excision of Left Upper Arm Subcutaneous Tissue and Fascia, Open Approach (ICD-10-PCS; principal; 2021-08-15 11:15)
DX: L73.2 Hidradenitis suppurativa (principal); J45.909 Unspecified asthma, uncomplicated; I10 Essential (primary) hypertension; K21.9 Gastro-esophageal reflux disease without esophagitis; N28.9 Disorder of kidney and ureter, unspecified
CPT/HCPCS: 11450; 85025; 80048; 36415; 88305; J2704; J3010; J1100; J0690; J7120; J2405; 88304

== ENCOUNTER 2021-09-09 10:33 | Day surgery (SDC) | payer OTHER ==
[2021-09-09] MEDS ORDERED: Ringers Lactate 1,000 ML IV ONE (11:11)
[2021-09-09 11:27] LABS: Absolute Lymphocytes (CBC) 1.6 K/uL (0.7-4.9); Hematocrit 34.7 % (39.6-49.0); Lymphocytes % 20.2 % (15.3-44.8); MPV 8.5 fL (7.6-11.3); RBC Red Blood Cell Count 5.22 M/uL (4.33-5.43)
[2021-09-09] MEDS ORDERED: CEFAZOLIN/SWI 2gm 2 GM/20 ML SYR ONE (11:30)
[2021-09-09 11:52] LABS: BUN Blood Urea Nitrogen 10 mg/dL (7-18); Bicarbonate 29 mmol/L (21-32); Glucose Level 88 mg/dL (74-106); Sodium Level 139 mmol/L (136-145)
[2021-09-09 12:17] LABS: Potassium 3.9 mmol/L (3.5-5.1)
[2021-09-09 12:19] LABS: Anisocytosis 1+; Blood Morphology Comment NOTED (NOT SEEN); Ovalocytes 1+; Platelet Estimate ADEQ; White Blood Cell Scan OK (OK)
[2021-09-09] MEDS ORDERED: FENTANYL CITR 100 MCG/2 ML ONE ×3 (12:41→15:02)
[2021-09-09] MEDS ORDERED: BUPIVACAINE 0.25% PF 10 ML VIAL ONE (13:05)
[2021-09-09] MEDS ORDERED: propofoL 200 MG/20 ML VIAL IV ONE (13:13)
[2021-09-09] MEDS ORDERED: MIDAZOLAM HCL 2 MG/2 ML INJ ONE (13:13)
[2021-09-09] MEDS ORDERED: LIDOCAINE 2% MPF 5 ML VIAL ONE (13:14)
[2021-09-09] MEDS ORDERED: dexAMETHasone 10 MG/ML VIAL ONE (13:14)
[2021-09-09] MEDS ORDERED: ONDANSETRON 4 MG/2 ML VIAL ONE (13:14)
[2021-09-09] MEDS ORDERED: GLYCOPYRROLATE 0.2 MG/ML SYR ONE (13:54)
[2021-09-09] MEDS ORDERED: SODIUM HYPOCHLORITE 0.5% 473 ML ONE ×2 (13:55→13:58)
[2021-09-09] MEDS ORDERED: EPHEDRINE SULF 50 MG/ML VIAL ONE (13:59)
--- NOTE | 2021-09-09 14:27 | P.OP ---
Preoperative diagnosis: RIGHT Flank Hidradenitis with abscess Postoperative diagnosis: RIGHT Flank Hidradenitis with abscess Primary procedure: Wide Excisional Debridement of RIGHT Flank Hidradenitis with abscess Anesthesia: GETA + Local Estimated blood loss: <10cc Specimen: cultures, debridement tissue Findings: 6cm x 7cm x 3 cm RIGHT flank hidradenitis Complications: None Transferred to: Recovery Room Condition: Good
[2021-09-09] MEDS ORDERED: KETOROLAC 30 MG/ML INJ ONE (14:29)
[2021-09-09] MEDS ORDERED: MEPERIDINE HCL 25 MG/ML SYR ONE (14:51)
[2021-09-09 15:33] VITALS: BP 111/52; TEMP 96.5; O2SAT 100
--- NOTE | 2021-09-10 00:02 | OP ---
Date of Procedure: 09/09/2021 Surgeon: Lawrence Contreras MD, Preoperative Diagnosis: Right flank hidradenitis with abscess. Postoperative Diagnosis: Right flank hidradenitis with abscess. Procedure Performed: Wide excisional debridement of right flank hidradenitis suppurativa with absces s. Anesthesia: General endotracheal plus local with 0.25% Marcaine without epinephrine. Estimated Blood Loss: Less than 2 cc. Specimen: Culture sent for aerobic, anaerobic speciation debridement tissue. Findings: Approximately, 6 cm x 7 cm x 3 cm right flank hidradenitis with abscess. Complications: None. Disposition: The patient transferred to the recovery room in good condition. Procedure In Detail: After informed consent was obtained, patient brought to the operating room, pre pped and draped in the usual sterile fashion after adequate anesthesia was achieved. The patient was anesthetized with additional 0.5% Marcaine without epinephrine in the right flank area down to subcu taneous tissues. An area of abscess was appreciated at this point. The skin was opened in an ellipt ical fashion using a 15 blade down through subcutaneous tissues. Abscess material was encountered al most immediately. This was cultured for both aerobic and anaerobic speciation, circumferentially dis sected down through subcutaneous fat into the fatty plane with electrocautery. This was sent off for pathologic examination for approximately 6 x 7 x 3 cm ellipse of tissue. After the tissue was sent off for pathologic examination, I irrigated the area copiously and then achieved hemostasis with elec trocautery. The wound was then packed with Dakin soaked Kerlix and sterile dressing placed over top. The patient tolerated the procedure without evidence of complication, transferred to PACU in good co ndition. All counts were correct at the end of the case. RADHA/MODL Voice ID: [id number] Report ID: [id number]
== END 2021-09-09 16:00 | disposition home or self-care (01) ==
LOC: OR 10:33
PROVIDERS: ATTEND Surgery
PROC: 0JB60ZZ Excision of Chest Subcutaneous Tissue and Fascia, Open Approach (ICD-10-PCS; principal; 2021-09-09 14:45)
DX: L73.2 Hidradenitis suppurativa (principal); L02.213 Cutaneous abscess of chest wall
CPT/HCPCS: 87070; 85025; 80048; 36415; 87205 ×2; 88304; 87075; 11042; J2704; J2250; J3010 ×3; J1100; J2175; J0690; J7120; J2405

== ENCOUNTER 2022-02-09 06:48 | Day surgery (SDC) | payer OTHER ==
[2022-02-08 13:54] LABS: SARS-CoV-2 Antigen Rapid Res Negative (Negative)
[2022-02-08 14:01] LABS: Potassium 3.7 mmol/L (3.5-5.1)
--- NOTE | 2022-02-08 18:27 | EKG ---
Test Date: 2022-02-08 Test Time: 13:08:46 Human Resources Supervisor: JANEEN MEASUREMENT RESULTS: Intervals: Rate: 81 OK: 176 QRSD: 98 QT: 376 QTc: 436 [place]: P: 31 OK: 176 QRS: 65 T: 66 INTERPRETIVE STATEMENTS: Normal sinus rhythm Normal ECG Compared to ECG 08/07/2012 23:26:23 No significant changes Electronically Signed On 02-08-22 18:27:25 CDT by Joey Stewart
[2022-02-09] MEDS ORDERED: Ringers Lactate 1,000 ML IV ONE (07:14)
[2022-02-09] MEDS ORDERED: CEFAZOLIN 2 GM IN 0.9% NACL 2 GM/100 ML BAG ONE (07:15)
[2022-02-09] MEDS ORDERED: BUPIVACAINE 0.25% PF 10 ML VIAL ONE (07:43)
[2022-02-09] MEDS ORDERED: SODIUM HYPOCHLORITE 0.5% 473 ML ONE (07:43)
[2022-02-09] MEDS ORDERED: SODIUM HYPOCHLORITE 0.25% 473 ML ONE (07:58)
[2022-02-09] MEDS ORDERED: propofoL 200 MG/20 ML VIAL IV ONE ×2 (08:53→09:17)
[2022-02-09] MEDS ORDERED: FENTANYL CITR 100 MCG/2 ML ONE (08:53)
[2022-02-09] MEDS ORDERED: LIDOCAINE 2% MPF 5 ML VIAL ONE (08:54)
[2022-02-09] MEDS ORDERED: MIDAZOLAM HCL 2 MG/2 ML INJ ONE (08:54)
[2022-02-09] MEDS ORDERED: ONDANSETRON 4 MG/2 ML VIAL ONE ×2 (08:54→09:41)
[2022-02-09] MEDS ORDERED: CEFAZOLIN SODIUM 1 GM/VIAL IM ONE (08:59)
[2022-02-09] MEDS ORDERED: SODIUM HYPOCHLORITE 0.25% 473 ML TOP ONE (09:30)
[2022-02-09] MEDS ORDERED: dexAMETHasone 10 MG/ML VIAL ONE (09:38)
[2022-02-09] MEDS ORDERED: BUPIVACAINE 0.25% PF 10 ML VIAL SQ ONE ×2 (09:50)
--- NOTE | 2022-02-09 10:04 | P.OP ---
Preoperative diagnosis: RIGHT buttock and LEFT pelvic infected cystic skin Postoperative diagnosis: RIGHT buttock and LEFT pelvic infected cystic skin Primary procedure: Wide local excision of RIGHT buttock and LEFT pelvic infected cystic skin Anesthesia: GETA + Local Estimated blood loss: <5cc Specimen: ellipse of skin from RIGHT buttock and LEFT pelvic skin Findings: 6cm x 4 cm buttock infected skin with abscess, 11cm x 6 cm left pelvic skin Complications: None Transferred to: Recovery Room Condition: Good
[2022-02-09] MEDS: HYDROMORPHONE HCL 1 MG/ML INJ ONE ×3 (10:33→10:47)
[2022-02-09] MEDS ORDERED: HYDROMORPHONE HCL 1 MG/ML INJ ONE (10:56)
--- NOTE | 2022-02-09 11:05 | OP ---
Date of Procedure: 02/09/2022 Surgeon: Lawrence Contreras MD, Preoperative Diagnosis: Right buttock and left pelvic infected skin cyst consistent with hidradeniti s suppurativa. Postoperative Diagnosis: Right buttock and left pelvic infected skin cyst consistent with hidradenit is suppurativa. Procedure Performed: Wide local excision of right buttock and left pelvic infected cystic skin. Anesthesia: General endotracheal plus local with 0.25% Marcaine. Estimated Blood Loss: Less than 5 cc. Specimen: Ellipse of skin from the right buttock and left pelvic skin areas. Findings: 6 cm x 4 cm right buttock infected skin cyst with abscess consistent with hidradenitis sup purativa and an 11 cm x 6 cm ellipse of tissue consistent with hidradenitis from the left pelvic skin area. Complications: None. Disposition: Patient was transferred to recovery room in good condition. Procedure In Detail: After informed consent was obtained, patient was taken to the operating room pr epped and draped in the usual sterile fashion. Patient was in lithotomy position. I then made an el lipse after appropriately anesthetizing the skin on the right buttock away from the perineum and away from the perianal skin in elliptical fashion down through subcutaneous tissue with a 15 blade circum ferentially around. I then used electrocautery to dissect down the subcutaneous fat and removing the ellipse of tissue consistent with hidradenitis suppurativa. This was then sent off for pathologic e xamination. Hemostasis was easily achieved with electrocautery. The incision was then closed using interrupted 2-0 nylon sutures and sterile dressing was placed over top. I then turned my attention t o left pelvic skin wall. There was an obvious area of hidradenitis similar to the previous encounter s. I anesthetized the skin similarly with 0.25% Marcaine. A 15 blade was used to dissect down to mukherjee bcutaneous tissues. Electrocautery was used to dissect the skin into the subcutaneous fat. This was then removed, sent off for pathologic examination. There was about 11 cm x 6 cm area pelvic skin. Hemostasis was achieved with electrocautery. The area was then irrigated and sewn closed with the sa mn said 2-0 nylon suture. Sterile dressing was placed over the top. Patient tolerated the procedure well without evidence of complication and transferred to PACU in good condition. All counts were co rrect at the end of the case. TK/MODL Voice ID: [id number] Report ID: [id number]
[2022-02-09 12:32] VITALS: BP 115/65; TEMP 97.4; O2SAT 99
== END 2022-02-09 12:13 | disposition home or self-care (01) ==
LOC: OR 06:48
PROVIDERS: ATTEND Surgery
PROC: 0JBM0ZZ Excision of Left Upper Leg Subcutaneous Tissue and Fascia, Open Approach (ICD-10-PCS; 2022-02-09)
PROC: 0JB90ZZ Excision of Buttock Subcutaneous Tissue and Fascia, Open Approach (ICD-10-PCS; principal; 2022-02-09 08:45)
DX: L72.0 Epidermal cyst (principal); Z20.822 Contact with and (suspected) exposure to COVID-19
CPT/HCPCS: 93005; 80048; 36415; 88304; 87811; 11406 ×2; J2704 ×2; J2250; J3010; J1100; J1170 ×2; J0690 ×2; J7120; J2405 ×2; J2001

== ENCOUNTER 2022-04-03 07:22 | Day surgery (SDC) | payer OTHER ==
[2022-04-03] MEDS ORDERED: Ringers Lactate 1,000 ML IV ONE (07:46)
[2022-04-03 08:01] LABS: Potassium 3.9 mmol/L (3.5-5.1)
[2022-04-03] MEDS ORDERED: ONDANSETRON 4 MG/2 ML VIAL ONE (09:19)
[2022-04-03] MEDS ORDERED: propofoL 200 MG/20 ML VIAL IV ONE (09:19)
[2022-04-03] MEDS ORDERED: MIDAZOLAM HCL 2 MG/2 ML INJ ONE (09:19)
[2022-04-03] MEDS ORDERED: FENTANYL CITR 100 MCG/2 ML ONE (09:19)
[2022-04-03] MEDS ORDERED: LIDOCAINE 2% MPF 5 ML VIAL ONE (09:19)
[2022-04-03] MEDS ORDERED: dexAMETHasone 4 MG/ML VIAL ONE (09:19)
[2022-04-03] MEDS ORDERED: KETOROLAC 30 MG/ML INJ ONE (09:19)
[2022-04-03] MEDS ORDERED: SODIUM HYPOCHLORITE 0.25% 473 ML ONE (09:23)
[2022-04-03] MEDS: BUPIVACAINE 0.25% PF 30 ML VIAL ONE ×2 (09:35→10:52)
[2022-04-03] MEDS: CEFAZOLIN SODIUM 2 GM/VIAL ONE ×2 (09:36→10:24)
--- NOTE | 2022-04-03 11:15 | P.OP ---
Preoperative diagnosis: Chronic Wounds of RIGHT Pubis and LEFT abdominal skin Postoperative diagnosis: Chronic Wounds of RIGHT Pubis and LEFT abdominal skin Primary procedure: Wide excision of Chronic Wounds of RIGHT Pubis and LEFT abdominal skin Anesthesia: GETA + Local Estimated blood loss: <10cc Specimen: RIGHT Pubis and LEFT abdominal skin Findings: ~ 5cm x 4 cm elipse of skin (x2 locations) Complications: None Transferred to: Recovery Room Condition: Good
--- NOTE | 2022-04-03 13:41 | OP ---
Date of Procedure: 04/03/2022 Surgeon: Lawrence Contreras MD, Preoperative Diagnosis: Chronic wound to the right pubis and left abdominal skin. Postoperative Diagnosis: Chronic wound to the right pubis and left abdominal skin. Procedure Performed: Wide excision of chronic wounds of the right pubis and left abdominal skin. Anesthesia: General endotracheal plus local with 0.25% Marcaine. Estimated Blood Loss: Less than 10 cc. Specimen: Right pubis skin and left abdominal skin. Findings: 5 cm x 4 cm ellipse of skin of the right pubis and left abdominal skins were removed consi stent with hidradenitis suppurativa. Complications: None. Disposition: Patient was transferred to recovery room in good condition. Procedure In Detail: After informed consent was obtained, patient was brought to the operating room, prepped and draped in the usual sterile fashion. After adequate anesthesia was achieved, an area of the abdominal skin was anesthetized with 0.25% Marcaine on the left abdominal wall. This was then t aken down through the skin using a 15C blade down to subcutaneous tissues. Electrocautery was used t o dissect down circumferentially around the area of an infected wound. This was taken down and sent in its entirety for pathologic examination and culture. The wound was then irrigated copiously and h emostasis was achieved with electrocautery. I then closed the defect using interrupted 2-0 nylon sut ures and a 0.5 inch iodoform packing was placed through the central portion to act as a wick. A ster ile dressing was placed over top. I then turned my attention in a similar fashion to the pubic area on the right pubis. This was similarly anesthetized, sharply incised circumferentially and I used el ectrocautery to dissect circumferentially down to the subcutaneous fat, removing the entire tissue in tact as well, sent it off for pathologic examination. The area was copiously irrigated and hemostasi s was achieved with electrocautery. The wound was also similarly closed with a 2-0 nylon suture and a 0.5 inch iodoform packing was placed in the wound to act as a wick as well and sterile dressing gal juan jose over top. The patient tolerated the procedure well without evidence of complication and transfer red to PACU in good condition and all counts were correct at the end of the case. RADHA/HEIDI Voice ID: [id number] Report ID: [id number]
[2022-04-03 14:44] VITALS: BP 125/65; TEMP 96.7; O2SAT 99
== END 2022-04-03 12:45 | disposition home or self-care (01) ==
LOC: OR 07:22
PROVIDERS: ATTEND Surgery
PROC: 0JD80ZZ Extraction of Abdomen Subcutaneous Tissue and Fascia, Open Approach (ICD-10-PCS; principal; 2022-04-03 09:30)
DX: S31.109A Unspecified open wound of abdominal wall, unspecified quadrant without penetration into peritoneal cavity, initial encounter (principal); L08.9 Local infection of the skin and subcutaneous tissue, unspecified
CPT/HCPCS: 11042; 80048; 36415; 88304; J2704; J1100; J2001; J2250; J3010; J7120; J2405

== ENCOUNTER 2022-04-28 11:56 | Day surgery (SDC) | payer OTHER ==
[2022-04-28] MEDS ORDERED: CEFAZOLIN SODIUM 2 GM/VIAL ONE (12:03)
[2022-04-28] MEDS ORDERED: Ringers Lactate 1,000 ML IV ONE (12:03)
[2022-04-28] MEDS ORDERED: BUPIVACAINE 0.25% PF 30 ML VIAL ONE (13:10)
[2022-04-28] MEDS ORDERED: FENTANYL CITR 100 MCG/2 ML ONE (13:42)
[2022-04-28] MEDS ORDERED: MIDAZOLAM HCL 2 MG/2 ML INJ ONE (13:42)
[2022-04-28] MEDS ORDERED: LIDOCAINE 2% MPF 5 ML VIAL ONE (13:42)
[2022-04-28] MEDS ORDERED: propofoL 200 MG/20 ML VIAL IV ONE (13:42)
[2022-04-28] MEDS ORDERED: ONDANSETRON 4 MG/2 ML VIAL ONE (13:43)
[2022-04-28] MEDS ORDERED: EPHEDRINE SULF 50 MG/ML VIAL ONE (14:06)
[2022-04-28] MEDS ORDERED: SODIUM HYPOCHLORITE 0.25% 473 ML ONE (14:20)
--- NOTE | 2022-04-28 14:24 | P.OP ---
Preoperative diagnosis: Recurrent Central Chest Cyst - Hidradenitis Postoperative diagnosis: Recurrent Central Chest Cyst - Hidradenitis Primary procedure: Wide local excision of Recurrent Central Chest Cyst - Hidradenitis Anesthesia: GETA + Local Estimated blood loss: <5cc Specimen: central chest tissue, cultures Findings: serous fluid collection Complications: None Transferred to: Recovery Room Condition: Good
[2022-04-28] MEDS ORDERED: dexAMETHasone 4 MG/ML VIAL ONE (14:25)
[2022-04-28] MEDS ORDERED: KETOROLAC 30 MG/ML INJ ONE (14:26)
[2022-04-28] MEDS: HYDROMORPHONE HCL 1 MG/ML INJ ONE ×4 (14:40→15:02)
[2022-04-28 15:40] VITALS: BP 108/50; TEMP 96.8; O2SAT 99
--- NOTE | 2022-04-29 01:39 | OP ---
Date of Procedure: 04/28/2022 Surgeon: Lawrence Contreras MD, Preoperative Diagnosis: Recurrent central chest cyst consistent with possible hidradenitis. Postoperative Diagnosis: Recurrent central chest cyst consistent with possible hidradenitis. Procedure Performed: Wide local excision of recurrent central chest cyst/hidradenitis. Anesthesia: General endotracheal plus local. Estimated Blood Loss: Less than 5 cc. Specimen: Central chest tissue culture sent for aerobic and anaerobic speciation. Findings: Serous fluid collection noted approximately 7 cm x 5 cm down to 1 cm. Area of central nirmal st cystic structure was noted with only serous fluid noted. Complications: None. The patient was transferred to recovery room in good condition. Procedure In Detail: After informed consent was obtained, patient was brought to the operating room and prepped and draped in the usual sterile fashion. After adequate anesthesia was achieved, I made a longitudinal vertical incision in the midline chest area where an area of fluctuance was appreciate d, using 15 blade down to subcutaneous tissue after appropriately anesthetizing the skin. I encounte red serous type fluid, which was cultured at this point in the deeper planes and significant scar tis stacey was noted from previous surgery. The cyst fluid appeared to be in this area. There did not appe ar to be an abscess. I cultured the area as well as the patient had been on antibiotics, but I sent culture for both aerobic and anaerobic speciation at this point. An ellipse of approximately 7 cm ve rtically x 5 cm width down to 1 cm in the adipose tissue was removed and sent off for pathologic exam ination. The area was copiously irrigated. Attempts at reapproximation would have been under signif icant tension as such I packed the wound with 0.25% Dakin solution on a sterile Kerlix and a dry gauz e was placed on top. The patient tolerated the procedure without evidence of any complication and tr ansferred to PACU in good condition. All counts were correct at the end of the case. RADHA/HEIDI Voice ID: [id number] Report ID: [id number]
== END 2022-04-28 16:05 | disposition home or self-care (01) ==
LOC: OR 11:56
PROVIDERS: ATTEND Surgery
PROC: 0JB60ZZ Excision of Chest Subcutaneous Tissue and Fascia, Open Approach (ICD-10-PCS; principal; 2022-04-28 13:30)
DX: L02.211 Cutaneous abscess of abdominal wall (principal); J86.9 Pyothorax without fistula
CPT/HCPCS: 87070; 87205; 88304; 87075; 11406; J2704; J1100; J2001; J2250; J3010; J1170 ×2; J7120; J2405

== ENCOUNTER 2022-11-24 10:21 | Day surgery (SDC) | payer OTHER ==
--- NOTE | 2022-11-23 13:55 | EKG ---
Test Date: 2022-11-23 Test Time: 10:46:13 Floral Design Teacher: MONIQUE MEASUREMENT RESULTS: Intervals: Rate: 79 [place]: 166 QRSD: 92 QT: 382 QTc: 438 [place]: P: 38 [place]: 166 QRS: 70 T: 63 INTERPRETIVE STATEMENTS: Normal sinus rhythm Normal ECG Compared to ECG 02/08/2022 13:08:46 No significant changes Electronically Signed On 11-23-22 13:54:37 CDT by Yovanny Tejada
[2022-11-24] MEDS ORDERED: Ringers Lactate 1,000 ML IV ONE (10:46)
[2022-11-24] MEDS: CEFAZOLIN SODIUM 2 GM/VIAL ONE ×2 (12:47→13:10)
[2022-11-24] MEDS: BUPIVACAINE 0.25% PF 10 ML VIAL ONE ×2 (12:48→13:21)
[2022-11-24] MEDS ORDERED: LIDOCAINE 2% MPF 5 ML VIAL ONE (13:01)
[2022-11-24] MEDS ORDERED: MIDAZOLAM HCL 2 MG/2 ML INJ ONE (13:01)
[2022-11-24] MEDS ORDERED: FENTANYL CITR 100 MCG/2 ML ONE (13:01)
[2022-11-24] MEDS ORDERED: propofoL 200 MG/20 ML VIAL IV ONE ×2 (13:01→13:27)
[2022-11-24] MEDS ORDERED: ONDANSETRON 4 MG/2 ML VIAL ONE (13:08)
--- NOTE | 2022-11-24 13:37 | P.OP ---
Preoperative diagnosis: RIGHT chest wall infected cyst Postoperative diagnosis: RIGHT chest wall infected cyst Primary procedure: Excisional Debridement of RIGHT chest wall infected cyst Anesthesia: GETA + Local Estimated blood loss: <5cc Specimen: cultures + debridement tissues Findings: ~ 8cm x 4 cm ellipse of affected of RIGHT chest wall Complications: None Transferred to: Recovery Room Condition: Good
[2022-11-24] MEDS: HYDROMORPHONE HCL 1 MG/ML INJ ONE ×2 (14:00→14:08)
[2022-11-24] MEDS ORDERED: HYDROMORPHONE HCL 1 MG/ML INJ ONE (14:24)
[2022-11-24 15:33] VITALS: BP 119/55; TEMP 97; O2SAT 100
--- NOTE | 2022-11-24 20:55 | OP ---
Date of Procedure: 11/24/2022 Surgeon: Ted Contreras MD, Preoperative Diagnosis: Right chest wall infected cyst. Postoperative Diagnosis: Right chest wall infected cyst. Procedure Performed: Excisional debridement of right chest wall infected cyst. Anesthesia: General endotracheal plus local. Estimated Blood Loss: Less than 5 cc. Specimen: Cultures were sent for both aerobic and anaerobic speciation and debridement tissue from r ight chest wall. Findings: Approximately 8 cm x 4 cm ellipse of infected right chest wall. Complications: None. The patient was transferred to recovery room in good condition. Procedure In Detail: After informed consent was obtained, the patient was brought to the operating r oom and prepped and draped in the usual sterile fashion. After adequate anesthesia was achieved, I m evelyn an elliptical incision circumferentially around the affected area on the right chest wall. Appro ximately 8 cm x 4 cm ellipse tissue was taken down. Electrocautery was used to dissect down to subcu taneous plane and abscess type material was encountered. This was cultured for both aerobic and anae robic speciation at this time. I then dissected out the area down to the subcutaneous fat circumfere ntially around to remove the ellipse of tissue. This was sent off for pathologic examination. I the n achieved hemostasis with electrocautery at the open wound and irrigated the area copiously. The ar ea was then brought together without too much tension and at this point, I opted to partially close t he wound with interrupted 2-0 nylon sutures and a sterile dressing was then used to pack the wound wi th Vashe and Kerlix within the wound. Sterile dressing was then placed over top. The patient tolera the procedure well without evidence of any complication and transferred to PACU in good condition . All counts were correct at the end of the case. TK/MODL Voice ID: [id number] Report ID: [id number]
== END 2022-11-24 15:27 | disposition home or self-care (01) ==
LOC: OR 10:21
PROVIDERS: ATTEND Surgery
PROC: 0WB80ZZ Excision of Chest Wall, Open Approach (ICD-10-PCS; principal; 2022-11-24 13:15)
DX: L02.213 Cutaneous abscess of chest wall (principal)
CPT/HCPCS: 93005; 87070; 87205 ×2; 88304; 87075; 11406; J2704; J2001; J2250; J3010; J1170 ×2; J2405; J7120

== ENCOUNTER 2023-02-09 16:10 | Emergency (ER) | payer OTHER ==
--- OUTSIDE RECORDS SUMMARY | 2023-02-09 16:15 | XMS REPORT | Continuity of Care Document ---
:1985 Author Organization [facility] t Address [address] [facility] [address] [place] [address] Care Team Providers Name Role Phone MAGGI LAROSE Primary Care Physician Unavailable Josey Rose Attending Clinician Unavailable Christy Acuña Attending Clinician Unavailable Christy Acuña Attending Clinician Unavailable MOISES SOUSA Attending Clinician Unavailable MOISES SOUSA Attending Clinician Unavailable Moises Sousa MD Attending Clinician Doctor Unassigned, [place] Attending Clinician Unavailable Christy Acuña Admitting Clinician Unavailable Payers Payer Name Policy Type Policy Number Effective Date Expiration Date S chau MEDICARE PART A [id number] 2019 \T\ B 00:00:00 Problems Condition Condition Condition Status Onset Resolution Last Treating Co mments Source Name Details Category Date Date Treatment Clinician Date Morbid Morbid Disease Active Univers obesity obesity 5-14 [place] of [place] index 00 [place] dical of 50 or of 50 or Branch higher higher Hidradenit Hidradenit Disease Active U nivers is is 5-13 [place]y of suppur[place] Abscess of Abscess of Disease Active 2014-06 U nivers anal and anal and 0-27 ity of rectal rectal 00:00: [facility] regions 00 Medical Branch Elevated Elevated Problem Active Commo n BP without BP without Sp jared diagnosis diagnosis - CH I of of hypertensi hypertensi Funmilayo kes on on [facility] Abscess, Abscess, Problem Active Commo n neck neck [facility] Hidradenit Hidradenit Problem Active C ommon is is Spirit suppurativ suppurativ - [facility] a a [facility] Morbid Morbid Problem Active Common obesity obesity [facility] Depression Depression Problem Active C ommon screening screening Spir [facility] Anxiety Anxiety Problem Active Common [facility] Abscess of Abscess of Problem Active C ommon chest chest [facility] Right Right Problem Active Common inguinal inguinal Spirit pain pain [facility] Status Status Problem Active Common post fall post fall Spir [facility] Pain in Pain in Problem Active Common right arm right arm Spir [facility] Pain in Pain in Problem Active Common left arm left arm [facility] Pain in Pain in Problem Active Common right knee right knee Sp jared [facility] Pain in Pain in Problem Active Common left knee left knee Spir [facility] CPAP CPAP Problem Active Common (continuou (continuou Sp jared s positive s positive - [facility] airway airway St pressure) pressure) [facility] dependence dependence [facility] GABE GABE Problem Active Common (obstructi (obstructi Sp jared ve sleep ve sleep - [facility] apnea) apnea) [facility] BMI 70 and BMI 70 and Problem Active C ommon over, over, [facility] adult [facility] Tooth pain Tooth pain Diagnosis Active Common [facility] Encounter Encounter Diagnosis Active C ommon for for Spirit general general [facility] adult adult [facility] examinatio examinatio Me dical n without n without Cent er abnormal abnormal findings findings Allergies, Adverse Reactions, Alerts Allergy Allergy Status Severity Reaction(s) Onset Inactive Treating Comm ents Source Name Type Date Date Clinician CIPROCIN DRUG Active Rash Univers ONIDE INGREDI 12-04 ity of 00:00: [place] [id number] Medical Branch Ciprocin Propensi Active Rash Univer s onide ty to 12-04 ity of adverse 00:00: [place] reaction Medical s Branch Ciproflo Adverse Active Rash Common xacin Reaction Spirit - [facility] Cipro Drug Active [facility] Cipro Drug Active [facility] Cipro Drug Active [facility] Cipro Drug Active Hives [facility] Cipro Drug Active [facility]ives [facility] Cipro Drug Active [facility] Cipro Drug Active [facility] Cipro Drug Active [facility] Cipro Drug Active [facility] Cipro Drug Active [facility] Cipro Drug Active [facility] Cipro Drug Active [facility] Social History Social Habit Start Date Stop Date Quantity Comments Source Sexual orientation [facility] [place] [facility] History of tobacco Cigarette Smoker University of use [facility] Gender identity Universit y [facility] Tobacco use and 2023-01-09 2023-01-09 Smokeless Universit y of exposure 00:00:00 00:00:00 tobacco non-user [facility] History of Social 2023-01-09 2023-01-09 [facility] ity of function 00:00:00 00:00:00 [facility] Tobacco Comment 2023-01-09 2023-01-09 1 pack per week Univ ersity of 00:00:00 00:00:00 [facility] Sex Ass[birth year] Universit y of 00:00:00 00:00:00 [facility] Smoking Status Start Date Stop Date Source Ex-smoker 2023-01-09 00:00:00 2023-01-09 00:00:00 Universi ty [facility] Smokes tobacco daily 2015-04-06 00:00:00 [facility] Medications Ordered Filled Start Stop Current Ordering Indication Dosage Frequency Signature Comments Components Source Medication Medication Date Date Medication? Clinician (SIG) Name Name nicole 2019-0 Yes [id number] 1{tbl} Take 1 Univers en-codeine 5-14 tablet by ity of 300-30 mg 00:00: mouth [place] tablet 00 every 6 Medical (six) Branch hours as needed for Pain (scale 4-6) or Pain (scale 7-10). sulfamethox 2019- Yes [id number] 1{tbl} Take 1 Univers azole-trime 5-14 tablet by ity of thoprim 00:00: mouth [place] 800-160 mg 00 daily. Medical per tablet Branch clindamycin Yes [id number] Apply to Univers 1 % 5-14 area(s) 2 ity of solution 00:00: (two) [place] 00 times Medical daily. Branch chlorhexidi Yes [id number] Apply to Univers ne (SCRUB 5-14 area(s) ity of CHLORHEXIDI 00:00: once daily [place] 00 as needed Medical GLUCONATE) for Wound Bran ch 4 % care. external liquid acetaminoph 2018- Yes [id number] 1{tbl} Take 1 Univers en-codeine 5-14 tablet by ity of 300-30 mg 00:00: mouth [place] tablet 00 every 6 Medical (six) Branch hours as needed for Pain (scale 4-6) or Pain (scale 7-10). sulfamethox 2018- Yes [id number] 1{tbl} Take 1 Univers azole-trime 5-14 tablet by ity of thoprim 00:00: mouth [place] 800-160 mg 00 daily. Medical per tablet Branch clindamycin Yes [id number] Apply to Univers 1 % 5-14 area(s) 2 ity of solution 00:00: (two) [place] 00 times Medical daily. Branch chlorhexidi Yes [id number] Apply to Univers ne (SCRUB 5-14 area(s) ity of CHLORHEXIDI 00:00: once daily [place] 00 as needed Medical GLUCONATE) for Wound Bran ch 4 % care. external liquid acetaminoph 2018- Yes [id number] 1{tbl} Take 1 Univers en-codeine 5-14 tablet by ity of 300-30 mg 00:00: mouth [place] tablet 00 every 6 Medical (six) Branch hours as needed for Pain (scale 4-6) or Pain (scale 7-10). sulfamethox 2019- Yes [id number] 1{tbl} Take 1 Univers azole-trime 5-14 tablet by ity of thoprim 00:00: mouth [place] 800-160 mg 00 daily. Medical per tablet Branch clindamycin Yes [id number] Apply to Univers 1 % 5-14 area(s) 2 ity of solution 00:00: (two) [place] 00 times Medical daily. Branch chlorhexidi 0 Yes [id number] Apply to [facility] ne (SCRUB 5-14 area(s) ity of CHLORHEXIDI 00:00: once daily [facility] 00 as needed Medical GLUCONATE) for Wound Bran ch 4 % care. external liquid Metformin Metformin Yes Josey 1 tablet Common HCl HCl Millender with a Spirit meal - [facility] Spironolact Spironolact Yes Josey 1 tablet Common one one Millender [facility] Trazodone Trazodone Yes Josey 1 tablet Common HCl HCl Millender at bedtime Spir it as needed - [facility] Topiramate Topiramate Yes Josey 1 tablet Common Millender [facility] Acetaminoph Acetaminoph Yes Josey (Schedule Common en-Codeine en-Codeine Millender III Drug) [facility] #3 #3 - [facility] Immunizations Ordered Filled Immunization Date Status Comments [facility] e Immunization Name Name SARS-COV-2 COVID-19 2020-09-18 Completed Unive rsity of PFIZER VACCINE 00:00:00 [facility] SARS-COV-2 COVID-19 2020-09-18 Completed Unive rsity of PFIZER VACCINE 00:00:00 [facility] SARS-COV-2 COVID-19 2020-09-18 Completed Unive rsity of PFIZER VACCINE 00:00:00 [facility] TDAP (ADACEL) 2018-10-22 Completed University of VACCINE 00:00:00 [facility] TDAP (ADACEL) 2018-10-22 Completed University of VACCINE 00:00:00 [facility] TDAP (ADACEL) 2018-10-22 Completed University of VACCINE 00:00:00 [facility] Vital Signs Vital Name Observation Time Observation Value Comments Source Height/Length 2020-04-16 08:51:31 Measured Systolic blood 2023-01-09 18:41:00 132 mm[Hg] Univer sity of pressure [facility] Diastolic blood 2023-01-09 18:41:00 87 mm[Hg] Unive rsity of pressure [facility] Heart rate 2023-01-09 18:41:00 85 /min Universi ty of [facility] Respiratory rate 2023-01-09 18:41:00 18 /min Univ ersity of [facility] Body height 2023-01-09 18:41:00 170.2 cm Universi ty of [facility] Body weight 2023-01-09 18:41:00 159.712 kg Universi ty [facility] BMI 2023-01-09 18:41:00 55.15 kg/m2 Universi ty [facility] Oxygen saturation in 2023-01-09 18:41:00 97 /min [facility] Arterial blood by [facility] Pulse oximetry Branch Height/Length 2021-06-28 13:22:51 172.72 cm Measured Weight Dosing 2021-06-28 13:22:51 199.59 kg Height/Length 2021-06-28 13:21:16 172.72 cm Measured Weight Dosing 2021-06-28 13:21:16 199.59 kg Height/Length 2021-06-28 13:20:58 172.72 cm Measured Weight Dosing 2021-06-28 13:20:58 199.59 kg Height/Length 2021-06-28 13:19:51 172.72 cm Measured Weight Dosing 2021-06-28 13:19:51 197 kg Height/Length 2021-06-28 13:19:50 172.72 cm Measured Weight Dosing 2021-06-28 13:19:50 197 kg Height/Length 2021-06-28 13:19:49 172.72 cm Measured Weight Dosing 2021-06-28 13:19:49 197 kg Height/Length 2021-06-28 13:19:18 172.72 cm Measured Weight Dosing 2021-06-28 13:19:18 199.59 kg Height/Length 2021-06-28 13:19:17 172.72 cm Measured Weight Dosing 2021-06-28 13:19:17 199.59 kg Height/Length 2020-04-19 13:20:10 Measured Weight Dosing 2020-04-19 08:36:25 Height/Length 2020-04-19 07:03:51 Measured Weight Dosing 2020-04-19 07:03:51 Height/Length 2021-06-28 12:13:34 172.7 cm Measured Weight Dosing 2021-06-28 12:13:34 206.3 kg Height/Length 2021-06-28 12:12:59 172.7 cm Measured Weight Dosing 2021-06-28 12:12:59 206.3 kg Height/Length 2020-02-13 11:12:21 Measured Weight Dosing 2020-02-13 11:12:21 Procedures Procedure Date / Time Performed Performing Clinician [facility] e ASSIGNMENT OF BENEFITS 2023-01-09 18:05:23 Doctor Unassigned, No [facility] Encounters Start End Encounter Admission Attending Care Care Encounter Source Date/Time Date/Time Type Type Clinicians Facility Department ID 2021-07-06 Outpatient Ari[facility]ender, [facility] [id number] Common 11:48:14 Josey [id number] [facility] 2021-07-06 Outpatient Rose, [facility] [id number] Common 11:40:22 Josey [id number] [facility] 2021-07-06 Out[facility] Rose, [facility] [id number] Common 11:19:43 Josey [id number] [facility] 2021-06-28 Inpatient Christy Acuña [facility] [id number] St. 13:17:23 Christy Acuña -202 [id number] [facility] 2023-01-09 2023-01-09 Outpatient MOISES AVALOS [facility] [id number] Univers 13:40:00 17:13:10 MOISES SOUSA iterickson [facility] 2023-01-09 2023-01-09 Office Lars [facility] [id number] Univers 13:40:00 17:13:10 Visit [facility] [id number] ity [facility] [id number] Rusty as PATRICIA?BLEA [id number] Ri antoni [address] MEDICAL OFFICE BUILDING 2023-01-09 2023-01-09 Orders Doctor GRULLON [id number] Univers 00:00:00 00:00:00 Only Unassigned, [place] [id number] ity of [place] [facility] [id number] Rusty as [id number] [address] 2020-04-19 2020-04-21 Inpatient 3 Christy Acuña [facility] [id number] St. 05:19:00 15:41:00 Christy Acuña [facility] 2020-04-19 2020-04-19 Inpatient 3 Christy Acuña [facility] [id number] St. 05:19:00 05:19:00 Christy Acuña -20 [facility] 2020-02-13 2020-02-13 Outpatient 3 Christy Acuña [facility] [id number] St. 08:29:00 23:59:00 Christy Acuña [facility] 2020-02-13 2020-02-13 Outpatient 3 Christy Acuña [facility] [id number] St. 08:29:00 08:29:00 Christy Acuña -20 [facility] 2019-12-02 2019-12-02 [facility] [id number] Common 08:00:00 08:00:00 [facility] it [address] [facility] 2019-10-11 2019-10-11 Out[facility] [id number] Common 22:02:00 22:02:00 t [facility] it Road [facility] 2019-10-07 2019-10-07 Out[facility] [id number] Common 15:00:00 15:00:00 [facility] [address] Spir it Road [facility] 2019-05-26 2019-05-26 Outpatient [facility] [id number] Common 09:45:00 09:45:00 [facility] [address] Spir it Road [facility] 2019-02-24 2019-02-24 Out[facility] [id number] Common 09:00:00 09:00:00 [facility] [address] Spir it Road [facility] Results Test Description Test Time Test Comments Results Result Comments Source Retype 2020-04-20 06:51:50 Test Item Value Reference Range Interpretation Comme nts Methodology (test code = Methodology) Test-Tube(TT) Anti-A (test code = Anti-A) 0 Anti-B (test code = Anti-B) 0 Anti-AB (test code = Anti-AB) NT Anti-D (test code = Anti-D) 4+ ABORh Retype (test code = ABORh Retype) O POS [id number] 06:37:50 Test Item Value Reference Range Interpretation [...] (test code = Lipemia) 0 g/dL 1-2 [id number] 06:37:50 Test Item Value Reference Range Interpretation [...] not provided, and t he patient is femyamilet le, multiply by 0.7 42. Results for pat ients <18 years of ag e have not been validated by e MDRD study and should be interpreted [...] (test code = 0 g/dL 1-2 Lipemia) [id number] 06:37:50 Test Item Value Reference Range Interpretation [...] ag e have not been validated by [facility] MDRD study and should be interpreted [...] ag e have not been validated by [facility] MDRD study and should be interpreted [...] code = 0 g/dL 1-2 Lipemia) IG [id number] 06:18:55 Test Item Value Reference Range Interpretation Comments IG (test code = IG) 0.3 % 0.0-5.0 IG Abs (test code = IG Abs) 0 x10 N [id number] 06:18:54 Test Item Value Reference Range Interpretation [...] = 0.00 x10 N NRBC Abs) Auto [id number] 06:18:54 Test Item Value Reference Range Interpretation Comments Neutro Auto (test code = Neutro 76.4 % 36.0-70.0 H Auto) Lymph Auto (test code = Lymph Auto) 15.2 % 12.0-44.0 [place] Auto (test code = [place] Auto) 7.9 % 0.0-11.0 Eos, Auto (test code = Eos, Auto) 0.0 % 0.0-7.0 Basophil Auto (test code = Basophil 0.2 % 0.0-2.0 Auto) Neutro Absolute (test code = Neutro 10.0 x10 1.6-7.4 H Absolute) Lymph Absolute (test code = Lymph 1.99 x10 .50-4.60 Absolute) [place] Absolute (test code = [place] 1.04 x10 .00-1.20 Absolute) Eos Absolute (test code = Eos 0.00 x10 0.00-0.74 Absolute) Baso Absolute (test code = Baso 0.03 x10 0.00-0.21 Absolute) POC [id number] 12:44:17 Test Item Value Reference Range Interpretation Comments Glucose POC (test 117 mg/dL 70-115 H Notify RN or MDIf you code = Glucose POC) consider your patient critically ill, the Maame-Accu Chec k Infrom II meter should not be used for Glucos e determination. Draw a venous Glucose and send to the main Lab for analysis. POC [id number] 11:43:56 Test Item Value Reference Range Interpretation Comments Glucose POC (test 122 mg/dL 70-115 H If you con social media job titles your code = Glucose POC) patient critically ill, the Maame-Accu Check Infrom II meter should not be used for Glucose determination. Draw a venous Glucose and send to the main Lab for analysis. [id number] 10:55:40 Test Item Value Reference Range Interpretation Comments Methodology (test code = Test-Tube(TT) Methodology) Anti-A (test code = Anti-A) 0 Anti-B (test code = Anti-B) 0 Anti-AB (test code = Anti-AB) NT Anti-D (test code = Anti-D) 4+ ABORh Retype (test code = ABORh O POS Retype) [facility] [id number] 08:59:05 Test Item Value Reference Range Interpretation [...] code Negative ABSC = Antibody Screen (3C)) [id number] 08:33:14 Test Item Value Reference Range Interpretation Comments Previous History (test code = No Prev History Previous History) BBID (test code = BBID) [id number] Methodology (test code = Test-Tube(TT) Methodology) Anti-A (test code = Anti-A) 0 Anti-B (test code = Anti-B) 0 Anti-D (test code = Anti-D) 4+ DCon (test code = DCon) NT A1 (test code = A1) 4+ B cells (test code = B cells) 4+ ABORh (test code = ABORh) O POS POC [id number] 08:14:49 Test Item Value Reference Range Interpretation Comments Glucose POC (test 105 mg/dL 70-115 If you con social media job titles your code = Glucose POC) patient critically ill, the Maame-Accu Check Infrom II meter should not be used for Glucose determination. Draw a venous Glucose and send to the main Lab for analysis.
--- NOTE | 2023-02-09 19:09 | ER ---
Nurse's Notes [facility] Name: Leland Pryor Age: 37 yrs Sex: Male : 1985 Arrival Date: 02/09/2023 Time: 16:10 Bed 11 Private MD: Diagnosis: Acute sinusitis, unspecified Presentation: 02/09 16:43 Chief complaint: Patient states: Sinus headache, congestion, sore throat over the past nj1 few days. Denies fever. Has taken at home COVID tests and were negative. Coronavirus screen: Vaccine status: Patient reports receiving the 1st dose of the Covid vaccine. Ebola Screen: Patient denies travel to an Ebola-affected area in the 21 days before illness onset. Initial Sepsis Screen: Does the patient meet any 2 criteria? No. Patient's initial sepsis screen is negative. Does the patient have a suspected source of infection? No. Patient's initial sepsis screen is negative. Risk Assessment: Do you want to hurt yourself or someone else? Patient reports no desire to harm self or others. Onset of symptoms was February 04, 2023. 16:43 Method Of Arrival: Ambulatory [facility] 16:43 Acuity: JOSY 4 nj1 Triage Assessment: 16:50 General: Appears in no apparent distress. comfortable, Behavior is calm, cooperative, nj1 appropriate for age. Historical: - Allergies: 16:47 Cipro; nj1 - PMHx: 16:47 Hidradenitis Suppurativa; nj1 - PSHx: 16:47 multiple I\T\D; nj1 - Immunization history:: Client reports receiving the 1st dose of the Covid vaccine. - Social history:: Smoking status: Patient denies any tobacco usage or history of. Screenin:43 [facility] ED Fall Risk Assessment (Adult) History of falling in the last 3 months, nm1 including since admission No falls in past 3 months (0 pts) Confusion or Disorientation No (0 pts) Intoxicated or Sedated No (0 pts) Impaired Gait No (0 pts) Mobility Assist Device Used No (0 pt) Altered Elimination No (0 pt) Score/Fall Risk Level 0 - 2 = Low Risk. Abuse screen: Denies threats or abuse. Nutritional screening: No deficits noted. Tuberculosis screening: No symptoms or risk factors identified. Assessment: 18:43 General: Appears comfortable, obese, well groomed, well developed, well nourished, me1 Behavior is calm, cooperative, appropriate for age, Reports feeling ill for sinus HORNE, congestion, sore throat for the past few days. Denies fever. Pain:. Pain: Denies pain. Neuro: Level of Consciousness is awake, alert, obeys commands, Oriented to person, place, time, situation, Appropriate for age. Cardiovascular: Capillary refill < 3 seconds Patient's skin is warm and dry. Respiratory: Airway is patent Respiratory effort is even, unlabored, Respiratory pattern is regular, symmetrical. Respiratory: Breath sounds are clear bilaterally. EENT: Reports pain in throat. Vital Signs: 16:43 BP 133 / 91; Pulse 85; Resp 18; Temp 98.3; Pulse Ox 99% ; Weight 158.76 kg; Height 5 hi1 ft. 7 in. ; Pain 4/10; 19:11 BP 137 / 88; Pulse 79; Resp 19; Pulse Ox 98% on R/A; me1 16:43 Body Mass Index 54.82 (158.76 kg, 170.18 cm) [facility] 16:43 Pain Scale: Adult [facility] ED Course: 16:16 Patient arrived in ED. im 16:18 Ramy Mahajan PA is PHCP. cp 16:18 Sonido Mario MD is Attending Physician. cp 16:47 Triage completed. [facility] 16:47 Arm band placed on right wrist. [facility] 16:50 Strep Sent. hi1 16:50 COVID-19 SARS RT PCR Sent. [facility] 16:50 Influenza Screen (a \T\ B) Sent. [facility] 17:45 Tati Atkins, RN is Primary Nurse. db 18:43 Patient has correct armband on for positive identification. Bed in low position. Call [facility] light in reach. Provided Education on: POC. Verbalized understanding. . 18:43 No provider procedures requiring assistance completed. Patient did not have IV access [facility] during this emergency room visit. Administered Medications: No medications were administered Medication: 18:43 VIS not applicable for this client. nm1 Outcome: 19:09 Discharge ordered by . cp 19:11 Discharged to home ambulatory. me1 19:11 Condition: stable 19:11 Discharge instructions given to patient, Instructed on discharge instructions, follow up and referral plans. Demonstrated understanding of instructions, follow-up care. 19:19 Patient left the ED. me1 Signatures: Ramy Mahajan PA PA cp Tati Atkins, RN RN db Wanda Jacobson RN RN nj1 Dodie Torres Michelle, RN RN me1 Corrections: (The following items were deleted from the chart) 16:50 16:43 Pulse 85bpm; Resp 18bpm; Pulse Ox 99%; Temp 98.3F; 158.76 kg; Height 5 ft. 7 in.; nj1 BMI: 54.8; Pain 4/10, Adult; nj1
--- NOTE | 2023-02-09 19:09 | EDPHYS ---
Physician Documentation [facility] Name: Leland Pryor Age: 37 yrs Sex: Male : 1985 Arrival Date: 02/09/2023 Time: 16:10 Bed 11 Private MD: ED Physician Sonido Mario HPI: 02/09 17:00 This 37 yrs old Male presents to ER via Ambulatory with complaints of Flu cp Symptoms, Congestion, Headache, Sore Throat. 17:00 The patient or guardian reports sinus and nasal congestion, sore throat, headache. cp 17:00 Onset: The symptoms/episode began/occurred 4 day(s) ago. cp 17:00 Associated signs and symptoms: Pertinent negatives: diarrhea, ear ache, fever, cp vomiting. Severity of symptoms: in the emergency department the symptoms are unchanged despite home interventions. Historical: - Allergies: 16:47 Cipro; nj1 - PMHx: 16:47 Hidradenitis Suppurativa; nj1 - PSHx: 16:47 multiple I\T\D; nj1 - Immunization history:: Client reports receiving the 1st dose of the Covid vaccine. - Social history:: Smoking status: Patient denies any tobacco usage or history of. ROS: 17:05 Constitutional: Negative for fever, poor PO intake. cp 17:05 Eyes: Negative for injury, pain, redness, and discharge. cp 17:05 ENT: Positive for sinus congestion, sore throat, nasal congestion, Negative for drainage from ear(s), ear pain, difficulty swallowing, difficulty handling secretions. 17:05 Cardiovascular: Negative for chest pain, palpitations. 17:05 Respiratory: Negative for cough, shortness of breath, wheezing. 17:05 Abdomen/GI: Negative for abdominal pain, nausea, vomiting, and diarrhea. 17:05 Neuro: Positive for headache, Negative for altered mental status, weakness. 17:05 All other systems are negative. Exam: 17:10 Constitutional: The patient appears in no acute distress, alert, awake, non-toxic, well cp developed, well nourished. 17:10 Head/Face: Normocephalic, atraumatic. cp 17:10 Eyes: Periorbital structures: appear normal, Conjunctiva: normal, no exudate, no injection, Sclera: no appreciated abnormality, Lids and lashes: appear normal, bilaterally. 17:10 ENT: External ear(s): are unremarkable, Ear canal(s): are normal, clear, TM's: dullness, bilaterally, Nose: is normal, Mouth: Lips: moist, Oral mucosa: moist, Posterior pharynx: Airway: no evidence of obstruction, patent, Tonsils: no enlargement, no exudate, erythema, that is mild, exudate, is not appreciated. 17:10 Neck: ROM/movement: is normal, is supple, without pain, no range of motions limitations, no meningismus, Lymph nodes: no appreciated lymphadenopathy. 17:10 Chest/axilla: Inspection: normal. 17:10 Cardiovascular: Rate: normal, Rhythm: regular. 17:10 Respiratory: the patient does not display signs of respiratory distress, Respirations: normal, no use of accessory muscles, no retractions, labored breathing, is not present, Breath sounds: decreased breath sounds, are not appreciated, + upper airway congestion. wheezing: is not appreciated. 17:10 Abdomen/GI: Inspection: abdomen appears normal, Palpation: abdomen is soft and non-tender, in all quadrants. 17:10 Skin: no rash present. Vital Signs: 16:43 BP 133 / 91; Pulse 85; Resp 18; Temp 98.3; Pulse Ox 99% ; Weight 158.76 kg; Height 5 nj1 ft. 7 in. ; Pain 4/10; 19:11 BP 137 / 88; Pulse 79; Resp 19; Pulse Ox 98% on R/A; me1 16:43 Body Mass Index 54.82 (158.76 kg, 170.18 cm) nj 16:43 Pain Scale: Adult nj1 MDM: 17:00 Patient medically screened. cp 18:00 Differential diagnosis: bronchitis, flu, URI, sinusitis, strep throat. cp 19:09 Data reviewed: vital signs, nurses notes, lab test result(s). cp 19:09 Care significantly affected by the following chronic conditions: Obesity. Counseling: I cp had a detailed discussion with the patient and/or guardian regarding the historical points, exam findings, and any diagnostic results supporting the discharge/admit diagnosis, lab results, to return to the emergency department if symptoms worsen or persist or if there are any questions or concerns that arise at home. 02/09 16:45 Order name: Influenza Screen (a \T\ B); Complete Time: 19:04 cp 02/09 19:04 Interpretation: Reviewed. cp 02/09 16:45 Order name: COVID-19 SARS RT PCR; Complete Time: 19:04 cp 02/09 19:04 Interpretation: Reviewed. cp 02/09 16:45 Order name: Strep cp 02/09 17:18 Order name: Throat Culture EDMS Administered Medications: No medications were administered Disposition Summary: 02/09/23 19:09 Discharge Ordered Location: Home cp Problem: new cp Symptoms: are unchanged cp Condition: Stable cp Diagnosis - Acute sinusitis, unspecified cp Followup: cp - With: Private Physician - When: 2 - 3 days - Reason: Worsening of condition Discharge Instructions: - Discharge Summary Sheet cp - Sinusitis, Adult cp Forms: - Medication Reconciliation Form cp - Thank You Letter cp - Antibiotic Education cp - Prescription Opioid Use cp - Patient Portal Instructions cp - Leadership Thank You Letter cp - Work release form me1 Prescriptions: - Bromfed DM 2-30-10 mg/5 mL Oral syrup - administer 10 milliliter by ORAL route 4 times per day as needed for cp congestion; 180 milliliter; Refills: 0, Product Selection Permitted - Flonase Allergy Relief 50 mcg/actuation Nasal spray, suspension - spray 2 spray by INTRANASAL route daily as needed for nasal congestion; cp administer into each nostril; 1 unit; Refills: 0, Product Selection Permitted Addendum: 02/12/2023 06:59 Co-signature as Attending Physician, Sonido Mario MD I reviewed the patient's care r n provided by the Advanced Practice Provider and agree with the diagnosis and treatment plan. Signatures: Dispatcher [employer] EDNE Sonido Mario MD MD rn Page, Corey, PA PA Wanda Gusman, RN RN nj1
[2023-02-09 19:45] VITALS: TEMP 98.3
[2023-02-09 19:46] VITALS: BP 137/88; O2SAT 98
== END 2023-02-09 19:19 | disposition home or self-care (01) ==
LOC: ER 16:10
DX: J01.90 Acute sinusitis, unspecified (principal); Z20.822 Contact with and (suspected) exposure to COVID-19; Z88.1 Allergy status to other antibiotic agents
CPT/HCPCS: 87070; 87081; 87635; 87804; 99283

== ENCOUNTER 2023-10-21 09:15 | Emergency (ER) | payer OTHER ==
--- OUTSIDE RECORDS SUMMARY | 2023-10-21 09:19 | XMS REPORT | Continuity of Care Document ---
Author Name Unknown Address [address] [facility] [address] [place] [address] [facility] thconnect Address [address] [facility] [place] [address] Care Team Providers Care Registered Nurse Supervisor Name Role Phone MAGGI LAROSE Primary Care Physician Unavailab Josey Landeros Attending Clinician Unavailable Christy Acuña Attending Clinician Unavailab Christy Min Attending Clinician Unavailab MOISES Vitale Attending Clinician Unavail MOISES Marr Attending Clinician Unavail Moises Marr MD Attending Clinician Doctor Unassigned, [place] Attending Clinician U navailable Christy Acuña Admitting Clinician Unavailab le Payers Payer Name Policy Type Policy Number Effective Date Expirati on Date Source MEDICARE PART A \T\ B [id number] 2019 00:00:00 Problems Condition Name Condition Details Condition Category Status Onset Date Resolution Date Last Treatment Date Treating Clinician Comments Source Morbid obesity with body mass index of 50 or higher Morbid obesity with body mass index of 50 or higher Disease Active 10-22 00:00: 00 [facility] Hidradenit is suppurativ a Hidradenit is suppurativ a Disease Active 10-21 00:00: 00 [facility] Abscess of anal and rectal regions Abscess of anal and rectal regions Disease Active 2014-06 00:00: 00 [facility] Elevated BP without diagnosis of hypertensi on Elevated BP without diagnosis of hypertensi on Problem Active [facility] Abscess, neck Abscess, neck Problem Active [facility] Hidradenit is suppurativ a Hidradenit is suppurativ a Problem Active [facility] Morbid obesity Morbid obesity Problem Active [facility] Depression screening Depression screening Problem Active [facility] Anxiety Anxiety Problem Active [facility] Abscess of chest Abscess of chest Problem Active [facility] Right inguinal pain Right inguinal pain Problem Active [facility] Status post fall Status post fall Problem Active [facility] Pain in right arm Pain in right arm Problem Active [facility] Pain in left arm Pain in left arm Problem Active [facility] Pain in right knee Pain in right knee Problem Active [facility] Pain in left knee Pain in left knee Problem Active [facility] CPAP (continuou s positive airway pressure) dependence CPAP (continuou s positive airway pressure) dependence Problem Active [facility] GABE (obstructi ve sleep apnea) GABE (obstructi ve sleep apnea) Problem Active [facility] BMI 70 and over, adult BMI 70 and over, adult Problem Active [facility] Tooth pain Tooth pain Diagnosis Active [facility] Encounter for general adult medical examinatio n without abnormal findings Encounter for general adult medical examinatio n without abnormal findings Diagnosis Active [facility] Allergies, Adverse Reactions, Alerts Allergy Name Allergy Type Status Severity Reaction(s) Onset Date Inactive Date Treating Clinician Comments Source CIPROCIN ONIDE DRUG INGREDI Active Rash 12-04 00:00: 00 [facility] Ciprocin onide Propensi ty to adverse reaction s Active Rash 12-04 00:00: 00 [facility] Cipro Drug Active [facility] Cipro Drug Active [facility] Cipro Drug Active [facility] Cipro Drug Active Hives [facility] Cipro Drug Active Hives [facility] Cipro Drug Active Hives [facility] Cipro Drug Active Hives [facility] Cipro Drug Active Hives [facility] Cipro Drug Active Hives [facility] Cipro Drug Active Hives [facility] Cipro Drug Active Hives [facility] Cipro Drug Active Hives [facility] Cipro Drug Active Hives [facility] Ciproflo xacin Adverse Reaction Active Rash [facility] Social History Social Habit Start Date Stop Date Quantity Comments Source Gender identity [facility] Sexual orientation [facility] History of tobacco use Cigarette Smoker [facility] Tobacco use and exposure 2023-01-09 00:00:00 2023-01-09 00:00:00 Smokeless tobacco non-user [facility] History of Social function 2023-01-09 00:00:00 2023-01-09 00:00:00 [facility] Tobacco Comment 2023-01-09 00:00:00 2023-01-09 00:00:00 1 pack per week [facility] Sex Ass[birth year] At 1985 00:00:00 1985 00:00:00 [facility] Smoking Status Start Date Stop Date Source Ex-smoker 2023-01-09 00:00:00 2023-01-09 00:00:00 [facility] Smokes tobacco daily 2015-04-06 00:00:00 [facility] Medications Ordered Medication Name Filled Medication Name Start Date Stop Date Current Medication? Ordering Clinician Indication Dosage Frequency Signature (SIG) Comments Components Source acetaminoph en-codeine 300-30 mg tablet 14 00:00: 00 Yes [id number] 1{tbl} Take 1 tablet by mouth every 6 (six) hours as needed for Pain (scale 4-6) or Pain (scale 7-10). [facility] sulfamethox azole-trime thoprim 800-160 mg per tablet 10-22 00:00: 00 Yes [id number] 1{tbl} Take 1 tablet by mouth daily. [facility] clindamycin 1 % solution 10-22 00:00: 00 Yes [id number] Apply to area(s) 2 (two) times daily. [facility] chlorhexidi ne (SCRUB CHLORHEXIDI NE GLUCONATE) 4 % external liquid 10-22 00:00: 00 Yes [id number] Apply to area(s) once daily as needed for Wound care. [facility] Metformin HCl Metformin HCl Yes Josey Millender 1 tablet with a meal [facility] Spironolact one Spironolact one Yes Josey Millender 1 tablet [facility] Trazodone HCl Trazodone HCl Yes Josey Millender 1 tablet at bedtime as needed [facility] Topiramate Topiramate Yes Josey Millender 1 tablet [facility] Acetaminoph en-Codeine #3 Acetaminoph en-Codeine #3 Yes Josey Millender (Schedule III Drug) [facility] Vital Signs Vital Name Observation Time Observation Value Comments S ource Height/Length Measured 2020-04-16 08:51:31 Systolic blood pressure 2023-01-09 18:41:00 132 mm[Hg] [facility] Diastolic blood pressure 2023-01-09 18:41:00 87 mm[Hg] [facility] Heart rate 2023-01-09 18:41:00 85 /min [facility] Respiratory rate 2023-01-09 18:41:00 18 /min [facility] Body height 2023-01-09 18:41:00 170.2 cm [facility] Body weight 2023-01-09 18:41:00 159.712 kg [facility] BMI 2023-01-09 18:41:00 55.15 kg/m2 [facility] Oxygen saturation in Arterial blood by Pulse oximetry 2023-01-09 18:41:00 97 /min [facility] Height/Length Measured 2021-06-28 13:22:51 172.72 cm Weight Dosing 2021-06-28 13:22:51 199.59 kg Height/Length Measured 2021-06-28 13:21:16 172.72 cm Weight Dosing 2021-06-28 13:21:16 199.59 kg Height/Length Measured 2021-06-28 13:20:58 172.72 cm Weight Dosing 2021-06-28 13:20:58 199.59 kg Height/Length Measured 2021-06-28 13:19:51 172.72 cm Weight Dosing 2021-06-28 13:19:51 197 kg Height/Length Measured 2021-06-28 13:19:50 172.72 cm Weight Dosing 2021-06-28 13:19:50 197 kg Height/Length Measured 2021-06-28 13:19:49 172.72 cm Weight Dosing 2021-06-28 13:19:49 197 kg Height/Length Measured 2021-06-28 13:19:18 172.72 cm Weight Dosing 2021-06-28 13:19:18 199.59 kg Height/Length Measured 2021-06-28 13:19:17 172.72 cm Weight Dosing 2021-06-28 13:19:17 199.59 kg Height/Length Measured 2020-04-19 13:20:10 Weight Dosing 2020-04-19 08:36:25 Height/Length Measured 2020-04-19 07:03:51 Weight Dosing 2020-04-19 07:03:51 Height/Length Measured 2021-06-28 12:13:34 172.7 cm Weight Dosing 2021-06-28 12:13:34 206.3 kg Height/Length Measured 2021-06-28 12:12:59 172.7 cm Weight Dosing 2021-06-28 12:12:59 206.3 kg Height/Length Measured 2020-02-13 11:12:21 Weight Dosing 2020-02-13 11:12:21 Procedures Procedure Date / Time Performed Performing Clinicia n Source ASSIGNMENT OF BENEFITS 2023-01-09 18:05:23 Docto r Unassigned, [place] [facility] Encounters Start Date/Time End Date/Time Encounter Type Admission Type Attending [facility] Care [facility] Care Department Encounter ID Source 2021-07-06 11:48:14 Outpatient Josey Rose [facility] [id number] [facility] 2021-07-06 11:40:[address] [facility] [id number] [facility] 2021-07-06 11:19:[address] [facility] [id number] [facility] 2021-06-28 13:17:23 Inpatient Christy Acuña Younan [facility] [id number] [facility] 2023-01-09 13:40:00 2023-01-09 17:13:10 Outpatient MOISES AVALOS [facility] [id number] [facility] 2023-01-09 13:40:00 2023-01-09 17:13:10 [facility] [id number] [facility] 2023-01-09 00:00:00 2023-01-09 00:00:00 Orders Only Doctor Unassigned, [place] [facility] [id number] [facility] 2020-04-19 05:19:00 2020-04-21 15:41:00 Inpatient 3 Christy Acuña Younan [facility] [id number] [facility] 2020-04-19 05:19:00 2020-04-19 05:19:00 Inpatient 3 Christy Acuña Younan [facility] [id number] [facility] 2020-02-13 08:29:00 2020-02-13 23:59:00 Outpatient 3 Christy Acuña Younan [facility] [id number] [facility] 2020-02-13 08:29:00 2020-02-13 08:29:00 Outpatient 3 Derek AcuñaChristy Cartwright [facility] [id number] [facility] 2019-12-02 08:00:00 2019-12-02 08:00:00 Outpatient [facility] [id number] [facility] 2019-10-11 22:02:00 2019-10-11 22:02:00 Outpatient [facility] [id number] [facility] 2019-10-07 15:00:00 2019-10-07 15:00:00 Outpatient [facility] [id number] [facility] 2019-05-26 09:45:00 2019-05-26 09:45:00 Outpatient [facility] [id number] [facility] 2019-02-24 09:00:00 2019-02-24 09:00:00 Outpatient [facility] [id number] [facility] Results Test Description Test Time Test Comments Results Result Co mments Source [id number] 06:37:50* Test Item Value Reference Range Interpretation Comme nts Sodium Level (test code = So dium Level) 140.0 mmol/L 136.0-145.0 Potassium Level (test code = Potassium Level) 3.90 mmol/L 3.50-5.10 Chloride Level (test code = Chloride Level) 110.0 mmol/L 98.0-107.0 H CO2 (test code = CO2) 22 mmol/L 20-31 Anion Gap (test code = Anion Gap) 7.9 mmol/L 5.0-15.0 BUN (test code = BUN) 10 mg/dL 9-23 Creatinine Level (test code = Creatinine Level) 0.91 mg/dL 0.70-1.30 BUN/Creat Ratio (test code = BUN/Creat Ratio) 11.0 ratio 10.0-20.0 Glucose Level (test code = Glucose Level) 100 mg/dL 74-106 Calcium Level (test code = Calcium Level) 8.3 mg/dL 8.3-10.6 Alk Phos (test code = Alk Phos) 65 U/L 46-116 Bilirubin Total (test code = Bilirubin Total) 0.7 mg/dL 0.2-1.1 Albumin Level (test code = Albumin Level) 3.4 g/dL 3.2-4.8 Protein Total (test code = Protein Total) 6.9 g/dL 5.7-8.2 ALT (test code = ALT) 47 U/L 10-49 AST (test code = AST) 35 U/L <=34 H Globulin (test code = Globulin) 3.5 g/dL 2.3-3.5 A/G Ratio (test code = A/G Ratio) 1.0 g/dL 0.8-2.0 Hemolysis (test code = Hemolysis) 0 g/dL 1-2 Icterus (test code = Icterus) 0 g/dL 1-2 Lipemia (test code = Lipemia) 0 g/dL 1-2 [id number] 06:37:50* Test Item Value Reference Range Interpretation Comme nts Sodium Level (test code = Sodium Level) 140.0 mmol/L 136.0-145.0 Potassium Level (test code = Potassium Level) 3.90 mmol/L 3.50-5.10 Chloride Level (test code = Chloride Level) 110.0 mmol/L 98.0-107.0 H CO2 (test code = CO2) 22 mmol/L 20-31 Anion Gap (test code = Anion Gap) 7.9 mmol/L 5.0-15.0 BUN (test code = BUN) 10 mg/dL 9-23 Creatinine Level (test code = Creatinine Level) 0.91 mg/dL 0.70-1.30 BUN/Creat Ratio (test code = BUN/Creat Ratio) 11.0 ratio 10.0-20.0 Glucose Level (test code = Glucose Level) 100 mg/dL 74-106 Calcium Level (test code = Calcium Level) 8.3 mg/dL 8.3-10.6 Alk Phos (test code = Alk Phos) 65 U/L 46-116 Bilirubin Total (test code = Bilirubin Total) 0.7 mg/dL 0.2-1.1 Albumin Level (test code = Albumin Level) 3.4 g/dL 3.2-4.8 Protein Total (test code = Protein Total) 6.9 g/dL 5.7-8.2 ALT (test code = ALT) 47 U/L 10-49 AST (test code = AST) 35 U/L <=34 H Globulin (test code = Globulin) 3.5 g/dL 2.3-3.5 A/G Ratio (test code = A/G Ratio) 1.0 g/dL 0.8-2.0 eGFR AA (test code = eGFR AA) >60 mL/min/1.73 m2 >=60 eGFR (estimated Glomerular Filtration Rate) is an estimated value, calculated from the patient's serum creatinine using the MDRD equation. It is NOT the patient's actual GFR. The eGFR provides a more clinically useful measure of kidney disease than serum creatinine alone.This calculation takes sex and race into account, if the information is provided. If the race is not provided, and the patient is -[place]omb[place], multiply by 1.212. If sex is not provided, and the patient is female, multiply by 0.742. Results for patients <18 years of age have not been validated by the MDRD study and should be interpreted with caution. eGFR Result Interpretation:eGFR > or = 60 is in the Normal RangeeGFR < 60 may mean kidney diseaseeGFR < 15 may mean kidney failure Ranges recommended by the National Kidney Foundation, http://nkdep.nih.gov Hemolysis (test code = Hemolysis) 0 g/dL 1-2 Icterus (test code = Icterus) 0 g/dL 1-2 Lipemia (test code = Lipemia) 0 g/dL 1-2 [id number] 06:37:50* Test Item Value Reference Range Interpretation Comme nts Sodium Level (test code = Sodium Level) 140.0 mmol/L 136.0-145.0 Potassium Level (test code = Potassium Level) 3.90 mmol/L 3.50-5.10 Chloride Level (test code = Chloride Level) 110.0 mmol/L 98.0-107.0 H CO2 (test code = CO2) 22 mmol/L 20-31 Anion Gap (test code = Anion Gap) 7.9 mmol/L 5.0-15.0 BUN (test code = BUN) 10 mg/dL 9-23 Creatinine Level (test code = Creatinine Level) 0.91 mg/dL 0.70-1.30 BUN/Creat Ratio (test code = BUN/Creat Ratio) 11.0 ratio 10.0-20.0 Glucose Level (test code = Glucose Level) 100 mg/dL 74-106 Calcium Level (test code = Calcium Level) 8.3 mg/dL 8.3-10.6 Alk Phos (test code = Alk Phos) 65 U/L 46-116 Bilirubin Total (test code = Bilirubin Total) 0.7 mg/dL 0.2-1.1 Albumin Level (test code = Albumin Level) 3.4 g/dL 3.2-4.8 Protein Total (test code = Protein Total) 6.9 g/dL 5.7-8.2 ALT (test code = ALT) 47 U/L 10-49 AST (test code = AST) 35 U/L <=34 H Globulin (test code = Globulin) 3.5 g/dL 2.3-3.5 A/G Ratio (test code = A/G Ratio) 1.0 g/dL 0.8-2.0 eGFR AA (test code = eGFR AA) >60 mL/min/1.73 m2 >=60 eGFR (estimated Glomerular Filtration Rate) is an estimated value, calculated from the patient's serum creatinine using the MDRD equation. It is NOT the patient's actual GFR. The eGFR provides a more clinically useful measure of kidney disease than serum creatinine alone.This calculation takes sex and race into account, if the information is provided. If the race is not provided, and the patient is -Colomb[place], multiply by 1.212. If sex is not provided, and the patient is female, multiply by 0.742. Results for patients <18 years of age have not been validated by the MDRD study and should be interpreted with caution. eGFR Result Interpretation:eGFR > or = 60 is in the Normal RangeeGFR < 60 may mean kidney diseaseeGFR < 15 may mean kidney failure Ranges recommended by the National Kidney Foundation, http://nkdep.nih.gov eGFR Non-AA (test code = eGFR Non-AA) >60.00 mL/min/1.73 m2 >=60.00 eGFR (estimated Glomerular Filtration Rate) is an estimated value, calculated from the patient's serum creatinine using the MDRD equation. It is NOT the patient's actual GFR. The eGFR provides a more clinically useful measure of kidney disease than serum creatinine alone.This calculation takes sex and race into account, if the information is provided. If the race is not provided, and the patient is -[place], multiply by 1.212. If sex is not provided, and the patient is female, multiply by 0.742. Results for patients <18 years of age have not been validated by the MDRD study and should be interpreted with caution. eGFR Result Interpretation:eGFR > or = 60 is in the Normal RangeeGFR < 60 may mean kidney diseaseeGFR < 15 may mean kidney failure Ranges recommended by the National Kidney Foundation, http://nkdep.nih.gov Hemolysis (test code = Hemolysis) 0 g/dL 1-2 Icterus (test code = Icterus) 0 g/dL 1-2 Lipemia (test code = Lipemia) 0 g/dL 1-2 IG [id number] 06:18:55* Test Item Value Reference Range Interpretation Comme nts IG (test code = IG) 0.3 % 0.0-5.0 IG Abs (test code = IG Abs) 0 x10 N [id number] 06:18:54* Test Item Value Reference Range Interpretation Comme nts WBC (test code = WBC) 13.1 x10 4.4-10.5 H RBC (test code = RBC) 3.83 x10 4.10-5.70 L Hgb (test code = Hgb) 9.2 g/dL 13.4-17.4 L Hct (test code = Hct) 30.5 % 38.7-52.0 L MCV (test code = MCV) 79.60 fL 80.00-100.00 L MCHC (test code = MCHC) 30.20 g/dL 32.00-37.50 L RDW CV (test code = RDW CV) 17.5 % 11.5-14.5 H MCH (test code = MCH) 24.0 pg 27.0-32.5 L Platelets (test code = Platelets) 263.0 x10 140.0-440.0 MPV (test code = MPV) 11.3 fL N Slide Review (test code = Slide Review) Auto Auto Result crea by [id number]_AUTO nRBC (test code = nRBC) 0 N NRBC Abs (test code = NRBC Abs) 0.00 x10 N Auto [id number] 06:18:54* Test Item Value Reference Range Interpretation Comme nts Neutro Auto (test code = Francia tro Auto) 76.4 % 36.0-70.0 H Lymph Auto (test code = Lymph Auto) 15.2 % 12.0-44.0 [place] Auto (test code = [place] Auto) 7.9 % 0.0-11.0 Eos, Auto (test code = Eos, Auto) 0.0 % 0.0-7.0 Basophil Auto (test code = B asophil Auto) 0.2 % 0.0-2.0 Neutro Absolute (test code = Neutro Absolute) 10.0 x10 1.6-7.4 H Lymph Absolute (test code = Lymph Absolute) 1.99 x10 .50-4.60 [place] Absolute (test code = M brandin Absolute) 1.04 x10 .00-1.20 Eos Absolute (test code = Eo s Absolute) 0.00 x10 0.00-0.74 Baso Absolute (test code = B aso Absolute) 0.03 x10 0.00-0.21 POC [id number] 12:44:17* Test Item Value Reference Range Interpretation Comme nts Glucose POC (test code = Glucose POC) 117 mg/dL 70-115 H Notify RN or MDIf you consider your patient critically ill, the Maame-Accu Check Infrom II meter should not be used for Glucose determination. Draw a venous Glucose and send to the main Lab for analysis. POC [id number] 11:43:56* Test Item Value Reference Range Interpretation Comme nts Glucose POC (test code = Glucose POC) 122 mg/dL 70-115 H If you consi sly your patient critically ill, the Maame-Accu Check Infrom II meter should not be used for Glucose determination. Draw a venous Glucose and send to the main Lab for analysis. [id number] 10:55:40* Test Item Value Reference Range Interpretation Comme nts Methodology (test code = Methodology) Test-Tube(TT) Anti-A (test code = Anti-A) 0 Anti-B (test code = Anti-B) 0 Anti-AB (test code = Anti-AB) NT Anti-D (test code = Anti-D) 4+ ABORh Retype (test code = AB ORh Retype) O POS 3ABSC [id number] 08:59:05* Test Item Value Reference Range Interpretation Comme nts SC1 IS (test code = SC1 IS) [...] SC3 CC) 2+ Antibody Screen (3C) (test c ode = Antibody Screen (3C)) Negative ABSC [id number] 08:33:14* Test Item Value Reference Range Interpretation Comme nts Previous History (test code = Previous History) No Prev History BBID (test code = BBID) [id number] Methodology (test code = Methodology) Test-Tube(TT) Anti-A (test code = Anti-A) 0 Anti-B (test code = Anti-B) 0 Anti-D (test code = Anti-D) 4+ DCon (test code = DCon) NT A1 (test code = A1) 4+ B cells (test code = B cells) 4+ ABORh (test code = ABORh) O POS POC [id number] 08:14:49* Test Item Value Reference Range Interpretation Comme nts Glucose POC (test code = Glucose POC) 105 mg/dL 70-115 If you consi sly your patient critically ill, the Maame-Accu Check Infrom II meter should not be used for Glucose determination. Draw a venous Glucose and send to the main Lab for analysis.
--- NOTE | 2023-10-21 09:36 | EDPHYS ---
Physician Documentation [facility] Name: Leland Pryor Age: 38 yrs Sex: Male : 1985 Arrival Date: 10/21/2023 Time: 09:15 Bed 11 Private MD: ED Physician Avelino Thomas HPI: 10/20 09:36 This 38 yrs old Male presents to ER via Ambulatory with complaints of Low Back ec2 Pain, Knee Pain. 09:36 Patient arrives today for evaluation of back pain as well as right knee pain. Patient ec2 reports initial left-sided back pain, this is not having right back pain going into the right knee. Patient reports no red flag symptoms, states pain is worsened with movement. Patient reports no falls injuries or trauma.. Historical: - Allergies: 09:25 Cipro; iw - PMHx: 09:25 Hidradenitis Suppurativa; iw - PSHx: 09:25 multiple I\T\D; iw - Infectious Disease History:: Denies. - Social history:: Smoking status: Patient denies any tobacco usage or history of. ROS: 09:36 Constitutional: as per hpi ec2 Exam: 09:36 Constitutional: GEN: NAD Head: atraumatic Eyes: EOMI Ears: External ears are ec2 normal. CV: regular rate LUNGS: no respiratory distress ABD: non-distended SKIN: no evidence of rashes MSK: no evidence of trauma, right paraspinal TTP, intact bilateral lower extremity strength. NEURO: moves all extremities equally Vital Signs: 09:25 BP 155 / 87; Pulse 91; Resp 18; Temp 98.3; Pulse Ox 97% on R/A; Weight 158.76 kg; iw Height 5 ft. 7 in. ; Pain 6/10; 09:25 Body Mass Index 54.82 (158.76 kg, 170.18 cm) iw 09:25 Pain Scale: Adult iw MDM: 09:31 Patient medically screened. ec2 09:36 Data reviewed: vital signs. ED course: Patient arrives today for evaluation of right ec2 back pain. Examination remarkable for well-appearing nontoxic individual is otherwise in no acute distress with a reassuring examination. Patient does have MSK findings as above. Will give the patient a dose of Decadron and prescribe patient Robaxin as needed for pain control. Instructed the patient mfro-qds-[id number] medication as well. Return precautions given. Doubt spinal cord pathology given lack of red flag symptoms, accordingly will forego MR imaging.. Administered Medications: 09:44 Drug: Dexamethasone IM 10 mg IM once Route: IM; Site: right gluteus; iw Disposition Summary: 10/21/23 09:36 Discharge Ordered Notes: Location: Home ec2 Condition: Stable ec2 Diagnosis - Sciatica, right side ec2 Followup: ec2 - With: Private Physician - When: - Reason: Re-evaluation by your physician Discharge Instructions: - Discharge Summary Sheet ec2 - Sciatica ec2 Forms: - Work release form iw - Medication Reconciliation Form ec2 - Antibiotic Education ec2 - Prescription Opioid Use ec2 - Patient Portal Instructions ec2 - Leadership Thank You Letter ec2 Prescriptions: - methocarbamol 500 mg Oral tablet - take 2 tablets ORAL route 4 times per day; 30 tablet; Refills: 0, Product ec2 Selection Permitted Signatures: Rosa Maria Witt RN RN iw Avelino Thomas MD MD ec2
--- NOTE | 2023-10-21 09:36 | ER ---
Nurse's Notes [facility] Name: Leland Pryor Age: 38 yrs Sex: Male : 1985 Arrival Date: 10/21/2023 Time: 09:15 Bed 11 Private MD: Diagnosis: Sciatica, right side Presentation: 10/20 09:24 Chief complaint: Patient states: left lower back pain, radiates to right lower back and iw now into right knee X 1 month , usually happens one a year and goes away with OTC meds. 09:24 Acuity: JOSY 4 iw 09:24 Method Of Arrival: Ambulatory iw 09:25 Coronavirus screen: At this time, the client does not indicate any symptoms associated iw with coronavirus-19. Ebola Screen: Patient negative for fever greater than or equal to 101.5 degrees Fahrenheit, and additional compatible Ebola Virus Disease symptoms Patient denies exposure to infectious person. Patient denies travel to an Ebola-affected area in the 21 days before illness onset. No symptoms or risks identified at this time. Initial Sepsis Screen: Does the patient meet any 2 criteria? No. Patient's initial sepsis screen is negative. Does the patient have a suspected source of infection? No. Patient's initial sepsis screen is negative. Risk Assessment: Do you want to hurt yourself or someone else? Patient reports no desire to harm self or others. Onset of symptoms was September 2023. Historical: - Allergies: 09:25 Cipro; iw - PMHx: 09:25 Hidradenitis Suppurativa; iw - PSHx: 09:25 multiple I\T\D; iw - Infectious Disease History:: Denies. - Social history:: Smoking status: Patient denies any tobacco usage or history of. Vital Signs: 09:25 BP 155 / 87; Pulse 91; Resp 18; Temp 98.3; Pulse Ox 97% on R/A; Weight 158.76 kg; iw Height 5 ft. 7 in. ; Pain 6/10; 09:25 Body Mass Index 54.82 (158.76 kg, 170.18 cm) iw 09:25 Pain Scale: Adult iw ED Course: :19 Patient arrived in ED. im 09:19 Avelino Thomas MD is Attending Physician. ec2 09:25 Triage completed. iw 09:25 Arm band placed on. iw 09:40 Rosa Maria Witt RN is Primary Nurse. iw Administered Medications: 09:44 Drug: Dexamethasone IM 10 mg IM once Route: IM; Site: right gluteus; iw Outcome: 09:36 Discharge ordered by . ec2 09:49 Patient left the ED. iw Signatures: Rosa Maria iWtt RN RN iw Dodie Torres Edwin, MD MD ec2
[2023-10-21] MEDS ORDERED: dexAMETHasone 10 MG/ML VIAL ONE (09:40)
[2023-10-21 10:11] VITALS: BP 155/87; TEMP 98.3; O2SAT 97
== END 2023-10-21 09:49 | disposition home or self-care (01) ==
LOC: ER 09:15
DX: M54.31 Sciatica, right side (principal); Z88.1 Allergy status to other antibiotic agents
CPT/HCPCS: 96372; 99283; J1100